=== PATIENT | female | born 1945 | race Caucasian/White ===

== ENCOUNTER → 2017-01-16 | Outpatient (CLI) | payer BC ==
[~2017-01-16] MED LIST: AMLO5TAB2 PO; ASPEC325 PO; BENZ100C84 PO; BIOF500C2 PO; CALC-51 PO; CLON0.5T3 PO; CLON1TAB3 PO; CYAN100020 PO; DEXT30TA7 PO; FLUT50SP22 NAE; FURO40TA3 PO; GABA-112 PO; LEVO50TA6 PO; LISI20TA3 PO; LOSA1TAB PO; LOSA50TA54 PO; MULT-506 PO; NAPR-1168 PO; NAPR-1169 PO; NORT10CA2 PO; OMEGCAP2 PO; OMEP40CA PO; OXYC-57 PO; QUET1TAB37 PO; RANI300T2 PO; TRAZ1TAB8 PO; Vitamin E PO
== END | disposition home or self-care (01) ==
LOC: C.LAB 13:20
PROVIDERS: ATTEND Family Medicine
DX: Z11.59 Encounter for screening for other viral diseases (principal)

== ENCOUNTER → 2017-01-26 | Outpatient (CLI) | payer BC ==
[2017-01-26 11:15] LABS: BASO % 0.2 %; BASO ABS # 0.02 K/uL (0-0.2); COMPLETE YES; EOS % 0.8 %; HEMATOCRIT 37.8 % (37-47); IG% 0.3 %; LYMPH ABS # 2.28 K/uL (1.2-3.4); MEAN CELL VOLUME 91.3 fL (80-100); MEAN CORPUSCULAR HEMOGLOBIN 30.9 pg (25-34); MEAN CORPUSCULAR HGB CONC 33.9 g/dl (32-36); MEAN PLATELET VOLUME 12.2 fL (7.4-10.4); MONO % 8.8 %; NEUT % 67.9 %; PLATELET COUNT 253 K/uL (130-400); RED BLOOD COUNT 4.14 M/uL (4.2-5.4); WHITE BLOOD COUNT 10.36 K/uL (4.8-10.8)
--- NOTE | 2017-01-26 14:36 | DIAGNOSTIC IMAGING REPORT ---
THREE-PHASE BONE SCAN OF THE KNEES CLINICAL HISTORY: Left knee pain. Evaluate for aseptic loosening. COMPARISON STUDY: Left knee radiograph January 27, 2016 and 3 phase bone scan of the knees June 27, 2013. TECHNIQUE: 26.7 mCi of technetium 99m MDP was injected IV at 10:45 AM on January 26, 2017. Immediately following injection, flow and subsequently blood pool images were obtained in the anterior projection. 3 hour delayed phase imaging was also performed. FINDINGS: There is minimal hyperemia adjacent to the left knee arthroplasty. Delayed phase images demonstrate mild to moderate uptake adjacent to left knee arthroplasty, most evident along the tibial component. Mild uptake adjacent to the right knee arthroplasty is likely within normal limits. IMPRESSION: Minimal hyperemia of the left knee with mild to moderate radiotracer uptake on the delayed phase images, greatest along the tibial component. This could be within normal limits although early loosening could appear similar. The degree of hyperemia is less than expected for an infectious process. Electronically signed by: Yang Medina M.D. 01/26/2017 2:34 PM Dictated Date/Time: 01/26/2017 2:26 PM
== END | disposition home or self-care (01) ==
LOC: C.NUCL 09:59
DX: Z47.1 Aftercare following joint replacement surgery (principal); Z96.652 Presence of left artificial knee joint; M25.562 Pain in left knee

== ENCOUNTER → 2017-02-08 | Outpatient (CLI) | payer BC ==
[~2017-02-08] MED LIST changes: -TRAZ1TAB8 PO; +TRAZ1TAB9 PO
== END | disposition home or self-care (01) ==
LOC: C.CPL 14:49
PROVIDERS: ATTEND Orthopaedic Surgery Sports Medicine
DX: T84.84XD Pain due to internal orthopedic prosthetic devices, implants and grafts, subsequent encounter (principal); Y83.1 Surgical operation with implant of artificial internal device as the cause of abnormal reaction of the patient, or of later complication, without mention of misadventure at the time of the procedure

== ENCOUNTER → 2017-02-21 | Outpatient (CLI) | payer BC ==
[~2017-02-21] MED LIST changes: +BUPIVACAINE/EPINEPHRINE 0.5% MPF 1:200,000 30 ML VIAL ONE; -CLON0.5T3 PO; +GADAVIST IV PRN; -LISI20TA3 PO; -OMEP40CA PO
--- NOTE | 2017-02-21 17:35 | DIAGNOSTIC IMAGING REPORT ---
MRI OF THE BRAIN WITHOUT AND WITH IV CONTRAST CLINICAL HISTORY: Headache; meningioma mental status change COMPARISON STUDY: 04/24/2014 TECHNIQUE: Utilizing a 1.5 Zina magnet and dedicated coil, multiplanar, multiecho imaging of the brain was performed pre and postcontrast administration. IV administration of 8.5 mL of Gadavist contrast was remarkable for an atypical delayed reaction. Patient denied dyspnea. Patient was transferred to the ER for treatment. FINDINGS: Unchanging meningioma over the left parietal convexity. Current dimensions are 11 x 8 mm. Within limitations of compared to a nonenhanced scan this is similar. No significant reactive vasogenic edema. No additional enhancing focus. Findings of generalized cerebellar as well as cerebral atrophy. Mild chronic small vessel change considered stable. Structures the sella and parasellar region are within normal limits. Internal auditory canals are symmetric. IMPRESSION: 1. Unchanging left parietal convexity meningioma. 2. Age-related atrophy and chronic small vessel change. 3. No evidence for an acute ischemic event. 4. Patient had a delayed rather atypical reaction possibly to contrast,. When stabilized, the patient was transferred to the emergency room for further follow-up evaluation Electronically signed by: Naren Zhong M.D. 02/21/2017 5:33 PM Dictated Date/Time: 02/21/2017 5:26 PM
== END | disposition home or self-care (01) ==
LOC: C.MRIBC 15:38
PROVIDERS: ATTEND Physician Assistant
DX: R51 Headache (principal); D32.0 Benign neoplasm of cerebral meninges; G31.9 Degenerative disease of nervous system, unspecified

== ENCOUNTER 2017-02-22 05:15 | Day surgery (SDC) | payer BC ==
[2017-02-13 11:30] VITALS: BMI 33.0
--- NOTE | 2017-02-14 13:08 | PAT Medication Instructions ---
Service Date Feb 14, 2017. Current Home Medication List Amlodipine Besylate (Norvasc), 5 MG PO AFTERNOON Benzonatate (Tessalon Perles), 1-2 CAP PO Q4 PRN for Cough Bioflavonoid Products (Vitamin C), 1 TAB PO QAM Calcium Carbonate-Vitamin D (Calcium), 1 TAB PO QAM Clonazepam (Klonopin), 1 MG PO BID Cyanocobalamin (Vitamin B12), 1,000 MCG PO QAM Dextromethorphan-Guaifenesin (Mucinex Dm), 1 TAB PO Q12 PRN for COUGH/CONGESTION Fluticasone Propionate (Nasal) ([facility] Fluticasone Propriona), 2 SPRAYS WILLOW AFTERNOON Furosemide (Lasix), 40 MG PO AFTERNOON Gabapentin (Neurontin), 100 MG PO TID Levothyroxine Sodium (Levothyroxine Sodium), 50 MCG PO AFTERNOON Losartan Potassium (Cozaar), 50 TAB PO QAM Multivitamin (Multivitamin), 1 TAB PO QAM Naproxen (Naprosyn), 500 MG PO BID Nortriptyline (Pamelor), 10 MG PO HS [place]-3 Fatty Acids (Fish Oil), 1 CAP PO QAM Oxycodone/Acetaminophen 5MG/325MG (Percocet 5MG/325MG), 1 TABLET PO TID PRN for Pain Quetiapine Fumarate (Seroquel), 300 MG PO HS Ranitidine (Zantac), 300 MG PO HS Trazodone Hcl (Desyrel), 100 MG PO HS [Vitamin E], 1 TAB PO QAM Medication Instructions For Your Scheduled Surgery - Hold the following medications as of 02/14/17: [Vitamin E], 1 TAB PO QAM [place]-3 Fatty Acids (Fish Oil), 1 CAP PO QAM - Hold the following medications the morning of surgery: Benzonatate (Tessalon Perles), 1-2 CAP PO Q4 PRN for Cough Bioflavonoid Products (Vitamin C), 1 TAB PO QAM Calcium Carbonate-Vitamin D (Calcium), 1 TAB PO QAM Furosemide (Lasix), 40 MG PO AFTERNOON Cyanocobalamin (Vitamin B12), 1,000 MCG PO QAM Dextromethorphan-Guaifenesin (Mucinex Dm), 1 TAB PO Q12 PRN for COUGH/CONGESTION Losartan Potassium (Cozaar), 50 TAB PO QAM Multivitamin (Multivitamin), 1 TAB PO QAM Naproxen (Naprosyn), 500 MG PO BID (otherwise okay to continue per surgeon) - Take the following medications the morning of surgery with a sip of water OTHERWISE NOTHING TO EAT OR DRINK AFTER MIDNIGHT: Amlodipine Besylate (Norvasc), 5 MG PO AFTERNOON (time permitting) Clonazepam (Klonopin), 1 MG PO BID Gabapentin (Neurontin), 100 MG PO TID Levothyroxine Sodium (Levothyroxine Sodium), 50 MCG PO AFTERNOON (time permitting) Oxycodone/Acetaminophen 5MG/325MG (Percocet 5MG/325MG), 1 TABLET PO TID PRN for Pain (may take if needed up to 4 hours prior to surgery) - Take the following medications as scheduled the night before surgery: Clonazepam (Klonopin), 1 MG PO BID Fluticasone Propionate (Nasal) ([facility] Fluticasone Propriona), 2 SPRAYS WILLOW AFTERNOON Gabapentin (Neurontin), 100 MG PO TID Dextromethorphan-Guaifenesin (Mucinex Dm), 1 TAB PO Q12 PRN for COUGH/CONGESTION Nortriptyline (Pamelor), 10 MG PO HS Quetiapine Fumarate (Seroquel), 300 MG PO HS Trazodone Hcl (Desyrel), 100 MG PO HS Ranitidine (Zantac), 300 MG PO HS Naproxen (Naprosyn), 500 MG PO BID Oxycodone/Acetaminophen 5MG/325MG (Percocet 5MG/325MG), 1 TABLET PO TID PRN for Pain If you have any questions please call us at [phone] or [phone] or [phone]
[2017-02-14 14:27] LABS: URINE APPEARANCE CLEAR (CLEAR); URINE BILIRUBIN NEG (NEG); URINE COLOR YELLOW; URINE EPITHELIAL CELL AUTO >30 /lpf (0-5); URINE NITRITE NEG (NEG); URINE PH 5.5 (4.5-7.5); URINE SPECIFIC GRAVITY 1.012 (1.000-1.030); UROBILINOGEN NEG (NEG)
[2017-02-14 14:30] LABS: MANUAL MICROSCOPIC REQUIRED? NO; REVIEW REQ? NO
[2017-02-14 15:35] LABS: BUN/CREATININE RATIO 21.6 (10-20); CALCIUM 9.3 mg/dl (8.5-10.1); CREATININE 0.93 mg/dl (0.60-1.20)
--- NOTE | 2017-02-20 11:27 | HISTORY & PHYSICAL EXAMINATION ---
DATE OF ADMISSION: 02/22/2017 CHIEF COMPLAINT: Left knee pain. HISTORY OF PRESENT ILLNESS: The patient is a 71-year-old female approximately 1 year status post left total knee arthroplasty. More recently she has been complaining of pain and disability status post a few falls. She had an infection workup which was negative. She is now scheduled for a left knee arthroscopy, debridement hypertrophic scar as indicated. PAST MEDICAL HISTORY: Hypertension, hypothyroidism, acid reflux, depression. PAST SURGICAL HISTORY: Left total knee as above, previous right total knee arthroplasty and subsequent right total knee revision arthroplasty, appendectomy, cholecystectomy, left shoulder. MEDICATIONS: Cymbalta 60 mg daily, lithium carbonate 300 mg 3 times daily, loratadine 10 mg daily, lisinopril 20 mg daily, clonazepam 1 mg 3 times daily, zolpidem 10 mg at bedtime, hydroxyzine 25 mg 4 times daily, multivitamin daily, fish oil daily, vitamin C daily, vitamin E daily, omeprazole 40 mg daily, levothyroxine 25 mcg daily, clonidine HCL 0.1 mg 2 times daily, Celebrex 200 mg twice daily, Kelford 5/325 p.r.n. pain. ALLERGIES: LYRICA WHICH CAUSES VERTIGO AND SAVELLA REACTION UNKNOWN. SOCIAL HISTORY AND REVIEW OF SYSTEMS: Noncontributory. PHYSICAL EXAMINATION: GENERAL: Well-nourished, well-developed elderly female. HEENT: Normocephalic, atraumatic, extraocular movements intact, oropharynx pink and moist. NECK: Supple without adenopathy. LUNGS: Clear to auscultation bilaterally. HEART: Regular rate and rhythm. ABDOMEN: Soft, nontender, nondistended. EXTREMITIES: The upper extremity within normal limits. The left knee demonstrates a well-healed midline incision. She describes discomfort with active flexion and extension of her knee. X-RAYS: Plain films and bone scan were reviewed. The plain films are within normal limits. The 3 phase bone scan and was minimally reactive and was read as possibly within normal limits with the possibility of early indication of loosening or septic process. She had a sed rate which was 13. She had a CRP which was less than 0.29. ASSESSMENT: Ongoing left knee pain 1 year status post total knee arthroplasty. PLAN: The above discussed with the patient. Dr. Oviedo's recommendation is proceeding with a diagnostic arthroscopy and debridement of hypertrophic scar as indicated. The patient's primary care physician is Dr. Hilton. We will proceed as indicated.
[~2017-02-22] VITALS: Ht 160 cm; Wt 86.7 kg
[~2017-02-22 05:15] MED LIST changes: -ASPEC325 PO; -BUPIVACAINE/EPINEPHRINE 0.5% MPF 1:200,000 30 ML VIAL ONE; -GADAVIST IV PRN; -LOSA50TA54 PO; -NAPR-1168 PO
[2017-02-22 05:42] VITALS: BP 187/73; PULSE 67; TEMP 36.6; O2SAT 98; Ht 160 cm; Wt 86.7 kg
[2017-02-22] MEDS ORDERED: LACTATED RINGER'S 1000ML 1,000 ML IV SCH (06:00)
[2017-02-22] MEDS ORDERED: FENTANYL CITRATE INJ 50 MCG/1 ML 2 ML VIAL ONE (06:43)
[2017-02-22] MEDS ORDERED: DEXAMETHASONE SOD INJ 4 MG/ML VIAL ONE (06:43)
[2017-02-22] MEDS ORDERED: PROPOFOL IV EMULSION 10 MG/ML 20 ML VIAL IV ONE (06:43)
[2017-02-22] MEDS ORDERED: LIDOCAINE HCL 2% 2 ML VIAL (20MG/ML) ONE (06:43)
[2017-02-22] MEDS ORDERED: ONDANSETRON INJ 2 MG/ML 2 ML VIAL ONE (06:43)
[2017-02-22] MEDS ORDERED: MIDAZOLAM HCL 1 MG/ML 2ML VIAL ONE (06:43)
[2017-02-22] MEDS ORDERED: BUPIVACAINE 0.5 % 5 MG/1 ML MPF 30ML VIAL ONE (06:47)
--- NOTE | 2017-02-22 06:54 | History & Physical Bridge Note ---
H&P Re-Evaluation Bridge Note: I have examined the patient, reviewed the History & Physical and in the interval since the performance of the History & Physical I have noted the following changes of clinical significance: No changes noted
[2017-02-22] MEDS ORDERED: CEFAZOLIN SOD 1 GM VIAL ONE (07:24)
[2017-02-22] MEDS ORDERED: ONDANSETRON INJ 2 MG/ML 2 ML VIAL IV PRN ×2 (07:30→08:00)
[2017-02-22] MEDS ORDERED: FENTANYL CITRATE INJ 50 MCG/1 ML 2 ML VIAL IV PRN (07:30)
[2017-02-22] MEDS ORDERED: ATROPINE SULFATE 0.1 MG/ML 5ML SYR IV PRN (07:30)
[2017-02-22] MEDS ORDERED: LABETALOL HCL IV 5 MG/ML 20ML IV PRN (07:30)
[2017-02-22] MEDS ORDERED: KETOROLAC TROMETHAMINE 30 MG/ML VIAL IV. PRN (07:30)
--- NOTE | 2017-02-22 07:52 | [facility] Post Operative Brief Note ---
Immediate Operative Summary Operative Date Feb 22, 2017. Pre-Operative Diagnosis Ongoing left knee pain 1 year status post total knee arthroplasty. Post-Operative Diagnosis Ongoing left knee pain 1 year status post total knee arthroplasty. Procedure(s) Performed Left Knee Arthroscopic Excision of the Hypotrophic Scar Surgeon Dr. Oveido Station Mechanic Helper Surgeon(s) None per surgeon Estimated Blood Loss 10ml Findings Much hypertertophic scar left total knee Specimens None per surgeon
[2017-02-22] MEDS ORDERED: BUPIVACAINE 0.5% W/EPI 1:200,000 INJ ONE (07:55)
[2017-02-22] MEDS ORDERED: OXYCODONE HCL IR 5 MG TAB (IMMEDIATE RELEASE) PO PRN (08:00)
[2017-02-22] MEDS ORDERED: MoRPHine SULFATE 2 MG/ML CARP IV PRN (08:00)
[2017-02-22] MEDS ORDERED: OXYCODONE/ACETAMINOPHEN 5-325 TAB PO PRN (08:00)
--- NOTE | 2017-02-22 08:02 | Discharge Instructions ---
Discharge Instructions Date of Service Feb 22, 2017. Admission Reason for Admission: Left Knee Arthrofibrosis Discharge Discharge Diagnosis / Problem: Left Knee Arthrofibrosis Discharge Goals Goal(s): Decrease discomfort, Improve function Activity Recommendations Activity Limitations: per Instructions/Follow-up section . Instructions / Follow-Up Instructions / Follow-Up ACTIVITY RECOMMENDATIONS: * You may walk on the leg with or without crutches as comfort permits. * Bending of the knee should start at once. * Do not shower for 48 hours following surgery. SPECIAL CARE INSTRUCTIONS: * You may cleanse the skin adjacent to the small wounds with soap and water at the time of the first dressing change. * The application of an ice bag to the front and sides of the knee will decrease swelling and discomfort for the first 48 hours. * The small incisions may be sore and develop bruising. This bruising does not require any special care. SPECIAL PRECAUTIONS: * If you experience unusual pain unrelieved by prescriptions, temperature elevation (100 degrees F. or above) or progressive swelling or bleeding, you should contact our office at for further evaluation. * You may have been prescribed pain medication. If you experience nausea and/or fine skin rash, discontinue this medication and contact our office at for an alternate medication. DRESSING: * Dressing should be comfortable and absorb any leakage of fluid and/or blood. * The dressing may become moist or bloodstained. * Dressing may be removed 2 days after surgery and bandaids placed over the small surgical incisions. If can be removed sooner if it becomes very soiled or loose. * Bandaids may be used over next several days as needed and can be discontinued when there is not further drainage from the wounds. FOLLOW UP VISIT: If appointment is not already scheduled: Please call [facility] to make a follow-up appointment in 10- 14 days from the day of your surgery at . Current Hospital Diet Patient's current hospital diet: Discharge Diet Recommended Diet: N/A (Resume your previous diet at home.) Procedures Procedures Performed: Left Knee Arthroscopic Excision of the Hypotrophic Scar Pending Studies Studies pending at discharge: no Medical Emergencies . Who to Call and When: Medical Emergencies: If at any time you feel your situation is an emergency, please call 351 immediately. . Non-Emergent Contact Non-Emergency issues call your: Surgeon Call Non-Emergent contact if: temperature is above 101.5, your pain is not controlled, your pain is worsening, wound has increased drainage, wound has increased redness . "Provider Documentation" section prepared by Dontae Lopez. VTE Core Measure Inpt VTE Proph given/why not?: [facility] [place] Drug Monitoring Program Search Results: patient reviewed within database, see additional documentation Drug Monitoring Findings: Patient receiving pain meds through [facility]. No prescriptions written for patient.
[2017-02-22] MEDS ORDERED: ASPEC325 PO (08:03)
--- NOTE | 2017-02-22 08:21 | Anesthesiology Progress Note ---
Anesthesia Post Op Note Date & Time Feb 22, 2017 at 08:21 Vital Signs Pain Intensity: 0 Vital Signs Past 12 Hours Date Time Temp Pulse Resp B/P Pulse Ox O2 Delivery O2 Flow Rate FiO2 02/22/17 08:10 74 16 154/81 100 Mask 5 02/22/17 08:00 82 16 160/77 100 Mask 10 02/22/17 07:50 84 16 144/71 100 Mask 10 02/22/17 07:45 36.4 82 14 139/69 98 Mask 10 02/22/17 05:42 36.6 67 20 187/73 98 Room Air Notes Mental Status: alert / awake / arousable, participated in evaluation Pt Amnestic to Procedure: Yes Nausea / Vomiting: adequately controlled Pain: adequately controlled Airway Patency, RR, SpO2: stable & adequate BP & HR: stable & adequate Hydration State: stable & adequate Anesthetic Complications: no major complications apparent
--- NOTE | 2017-02-22 08:29 | OPERATIVE REPORT ---
DATE OF OPERATION: 02/22/2017 PREOPERATIVE DIAGNOSIS: Hypertrophic scar, left total knee. POSTOPERATIVE DIAGNOSIS: Hypertrophic scar, left total knee. PROCEDURE: Excision of hypertrophic scar, left total knee. SURGEON: Dr. Oviedo. ANESTHESIA: General. COMPLICATIONS: None. DESCRIPTION OF PROCEDURE: Following induction of adequate general anesthesia, the patient's left leg was prepped and draped in usual sterile manner. Limb was exsanguinated with elevation and tourniquet was inflated to 350 mmHg. Prior to inflation of the tourniquet 2 grams of IV Ancef was injected. An anterolateral portal was used for insertion of the arthroscope. Tremendous amounts of hypertrophic scar were identified both in the medial and lateral compartments of the knee joint. Much of this scar could easily be seen to be impinging between the femoral and tibial components. Using a 5-5 incisor blade all offending scar was removed. Tibial components and femoral components were intact. The patella looked within normal limits and tracked normally. There was not any significant scarring in the area of the suprapatellar pouch. The arthroscope was withdrawn. Wounds were closed using 4-0 nylon simple sutures. Sterile dressing of 4 x 4s, sterile Webril and double length Berto was applied. The patient tolerated the procedure well. Prior to dressing 10 mL of 1.5% Marcaine with epinephrine were injected into each arthroscopic portal. I attest to the content of the Intraoperative Record and any orders documented therein. Any exceptio ns are noted below.
[2017-02-22 08:30] VITALS: BP 162/75; PULSE 65; TEMP 36.3; O2SAT 97
[2017-02-22 09:00] VITALS: BP 174/72; PULSE 58; TEMP 36.4; O2SAT 100
[2017-02-22 09:30] VITALS: BP 167/77; PULSE 61; TEMP 36.5; O2SAT 98
--- NOTE | 2017-02-28 12:59 | CODING QUERY MEDICAL NECESSITY ---
CQSUPPORTING DIAGNOSIS NEEDED A supporting diagnosis is required for the test/procedure performed on this patient in order for us to be reimbursed by the patient's insurance. Please provide a supporting diagnosis for the following test/procedure listed below next to the test name along with your signature. *If there is no additional diagnosis for this patient that would support the following test/procedure please document that below next to the test/procedure. Test(s)/Procedure(s) that require a supporting diagnosis: DOS 02/22/17 BLOOD GLUCOSE TESTING Provider Signature: Date: Thank you Sharlene Chen Health Information Management Once completed, please kindly fax back to [phone] For questions please call [phone]
[2017-03-15] MEDS ORDERED: LOSA50TA54 PO (14:40)
[2017-03-15] MEDS ORDERED: NAPR-1168 PO (14:40)
== END 2017-02-22 09:40 | disposition home or self-care (01) ==
LOC: C.ACU 05:15
DX: L91.0 Hypertrophic scar (principal); I10 Essential (primary) hypertension; E03.9 Hypothyroidism, unspecified; K21.9 Gastro-esophageal reflux disease without esophagitis; F32.9 Major depressive disorder, single episode, unspecified; E11.9 Type 2 diabetes mellitus without complications

== ENCOUNTER → 2017-03-21 | Day surgery (SDC) | payer BC ==
[2017-03-15 14:40] VITALS: BMI 33.0
[~2017-03-21] VITALS: Ht 160 cm; Wt 85.9 kg
[~2017-03-21] MED LIST changes: -BIOF500C2 PO; +LIDOCAINE HCL 2% 2 ML VIAL (20MG/ML) ONE; -LOSA1TAB PO; +LOSA50TA54 PO; +NAPR-1168 PO; -NAPR-1169 PO; -NORT10CA2 PO; +ONDANSETRON INJ 2 MG/ML 2 ML VIAL IV PRN; +PROPOFOL IV EMULSION 10 MG/ML 20 ML VIAL IV ONE
[2017-03-21 09:20] VITALS: Ht 160 cm; Wt 85.9 kg
--- NOTE | 2017-03-21 09:35 | Endo History and Physical ---
History & Physical Date of Service: March 21, 2017. Chief Complaint: Screening for colon cancer Referring Physician: Dr Carballo History of Present Illness Patient referred for CRC screening, no symptoms, no family history. Past Medical History Arthritis, Fractures, Anxiety, Reflux, Syncopal Episodes, Hypertension, Thyroid Disease, Depression Past Surgical History Hx Cardiac Surgery: No Hx Internal Defibrillator: No Hx Pacemaker: No Hx Abdominal Surgery: Yes (APPY, COCO) Hx Post-Op Nausea and Vomiting: No Hx Cancer Surgery: No Hx Thoracic Surgery: No Hx Orthopedic: Yes (B/L TKA, LEFT SHOULDER/HUMEROUS ORIF WITH HARDWARE/REMOVAL , LEFT KNEE ARTHR) Hx Urinary Tract Surgery: No Family History IBD Social History Smoking Status: Never Smoker Hx Substance Use: Yes (SEE MED REC) Hx Alcohol Use: Yes (OCCASIONALLY) Allergies Coded Allergies: Dust (Verified Allergy, Unknown, STUFFY NOSE, 03/15/17) [place] (Verified Allergy, Unknown, syncope, 03/15/17) Cheese (Verified Adverse Reaction, Unknown, CONSTIPATION, 03/15/17) NUTS (Verified Adverse Reaction, Unknown, CONSTIPATION, 03/15/17) Current Medications Reported Home Medications Medications Dose Route/Sig Max Daily Dose Days Date Category Dose Instructions Naprosyn Ds (Naproxen) 550 Mg Tab 550 Mg PO BID 03/15/17 Reported Cozaar (Losartan Potassium) 50 Mg Tab 50 Mg PO QAM 03/15/17 Reported Mucinex Dm (Dextromethorphan-Guaifenesin) 1 Tab Tab 1 Tab PO Q12 PRN 14 02/13/17 Reported Neurontin (Gabapentin) 100 Mg Cap 100 Mg PO TID 02/13/17 Reported Seroquel (Quetiapine Fumarate) 300 Mg Tab 300 Mg PO HS 02/13/17 Reported Tessalon Perles (Benzonatate) 100 Mg Cap 1-2 Cap PO Q4 PRN 5 02/13/17 Reported [facility] Fluticasone Propriona (Fluticasone Propionate (Nasal)) 50 Mcg/Act Spr 2 Sprays WILLOW AFTERNOON 10/24/16 Reported Percocet 5MG/325MG (Oxycodone/Acetaminophen) Tab 1 Tablet PO TID PRN 10/24/16 Reported PAIN Zantac (Ranitidine HCl) 300 Mg Tab 300 Mg PO HS 12/30/15 Reported Lasix (Furosemide) 40 Mg Tab 40 Mg PO AFTERNOON 12/30/15 Reported Vitamin B12 (Cyanocobalamin) 1,000 Mcg Tab 1,000 Mcg PO QAM 07/28/15 Reported Multivitamin (Multivitamins) Tab 1 Tab PO QAM 07/28/15 Reported [Vitamin E] 1 Tab PO QAM 04/24/14 Reported Calcium (Calcium Carbonate-Vitamin D) 1 Tab Tab 1 Tab PO QAM 04/24/14 Reported Desyrel (Trazodone Hcl) 100 Mg Tab 100 Mg PO HS 04/24/14 Reported Levothyroxine Sodium 50 Mcg Tab 50 Mcg PO AFTERNOON 04/24/14 Reported Norvasc (Amlodipine Besylate) 5 Mg Tab 5 Mg PO AFTERNOON 04/24/14 Reported Fish Oil ([place]-3 Fatty Acids) 1 Cap Cap 1 Cap PO QAM 07/17/13 Reported Klonopin (Clonazepam) 1 Mg Tab 1 Mg PO BID 01/24/13 Reported Vital Signs Weight (Kilograms): 85.91 Height (Feet): 5 Height (Inches): 3 Physical Exam General Appearance: no apparent distress Respiratory/Chest: Auscultation: breath sounds normal Cardiovascular: Heart Auscultation: RRR Abdomen: Inspection & Palpation: soft Assessment and Plan Patient for CRC screening today, risks discussed to include bleeding, infection , perforation, pain and missed polyps.
[2017-03-21 09:44] VITALS: TEMP 36.4
--- NOTE | 2017-03-21 10:31 | Discharge Instructions ---
Endoscopy Patient Instructions Date / Procedure(s) Performed March 21, 2017. Colonoscopy Allergy Information Coded Allergies: Dust (Verified Allergy, Unknown, STUFFY NOSE, 03/21/17) [place] (Verified Allergy, Unknown, syncope, 03/21/17) Cheese (Verified Adverse Reaction, Unknown, CONSTIPATION, 03/21/17) NUTS (Verified Adverse Reaction, Unknown, CONSTIPATION, 03/21/17) Discharge Date / Findings March 21, 2017. Diverticulosis Hemorrhoids Medication Instructions Restart Stopped Medication(s): Reported Home Medications Medications Dose Route/Sig Max Daily Dose Days Date Category Dose Instructions Naprosyn Ds (Naproxen) 550 Mg Tab 550 Mg PO BID 03/15/17 Reported Cozaar (Losartan Potassium) 50 Mg Tab 50 Mg PO QAM 03/15/17 Reported Mucinex Dm (Dextromethorphan-Guaifenesin) 1 Tab Tab 1 Tab PO Q12 PRN 14 02/13/17 Reported Neurontin (Gabapentin) 100 Mg Cap 100 Mg PO TID 02/13/17 Reported Seroquel (Quetiapine Fumarate) 300 Mg Tab 300 Mg PO HS 02/13/17 Reported Tessalon Perles (Benzonatate) 100 Mg Cap 1-2 Cap PO Q4 PRN 5 02/13/17 Reported [facility] Fluticasone Propriona (Fluticasone Propionate (Nasal)) 50 Mcg/Act Spr 2 Sprays WILLOW AFTERNOON 10/24/16 Reported Percocet 5MG/325MG (Oxycodone/Acetaminophen) Tab 1 Tablet PO TID PRN 10/24/16 Reported PAIN Zantac (Ranitidine HCl) 300 Mg Tab 300 Mg PO HS 12/30/15 Reported Lasix (Furosemide) 40 Mg Tab 40 Mg PO AFTERNOON 12/30/15 Reported Vitamin B12 (Cyanocobalamin) 1,000 Mcg Tab 1,000 Mcg PO QAM 07/28/15 Reported Multivitamin (Multivitamins) Tab 1 Tab PO QAM 07/28/15 Reported [Vitamin E] 1 Tab PO QAM 04/24/14 Reported Calcium (Calcium Carbonate-Vitamin D) 1 Tab Tab 1 Tab PO QAM 04/24/14 Reported Desyrel (Trazodone Hcl) 100 Mg Tab 100 Mg PO HS 04/24/14 Reported Levothyroxine Sodium 50 Mcg Tab 50 Mcg PO AFTERNOON 04/24/14 Reported Norvasc (Amlodipine Besylate) 5 Mg Tab 5 Mg PO AFTERNOON 04/24/14 Reported Fish Oil ([place]-3 Fatty Acids) 1 Cap Cap 1 Cap PO QAM 07/17/13 Reported Klonopin (Clonazepam) 1 Mg Tab 1 Mg PO BID 01/24/13 Reported Provider Instructions Activity Restrictions - No exercising or heavy lifting for 24 hours. - Do not drink alcohol the day of the procedure. - Do not drive a car or operate machinery until the day after the procedure. - Do not make any important decisions or sign important papers in 24 hours after the procedure. Following Day: - Return to full activity which may include returning to work/school. Diet Start your diet with liquids and light foods (jello, soup, juice, toast). Then eat your usual diet if not nauseated. Treatment For Common After Affects For mild abdominal pain, bloating, or excessive gas: - Rest - Eat lightly - Lie on right side Follow-Up Information Follow-up with Dr Carballo as scheduled Repeat colonoscopy in 5 years (small polyps could have been missed. Anesthesia Information What You Should Know You have had a procedure that required some medicine to reduce anxiety and discomfort. This treatment is called moderate sedation. After receiving the treatment, you may be sleepy, but you will be able to breathe on your own. The effects of the treatment may last for several hours. Follow these instructions along with Activity/Diet recommendations noted above: * Do NOT do anything where dizziness or clumsiness would be dangerous. * Rest quietly at home today, then you can be up and about tomorrow. * Have a responsible person stay with you the rest of today. * You may have had an I.V. today. If so, you may take the dressing off later today. Recommendations Call your doctor if: * Trouble breathing * Continuous vomiting for more than 24 hours * Temperature above 101 degrees * Severe abdominal pain or bloating * Pain not relieved by pain medicine ordered * There is increased drainage or redness from any incision * A large amount of rectal bleeding greater than 2-3 tablespoons. (If you had a polyp/s removed or have hemorrhoids, a small amount of blood - from the rectum is to be expected.) * You have any unanswered questions or concerns. IN THE EVENT OF A SERIOUS EMERGENCY, GO TO THE NEAREST EMERGENCY ROOM Your discharge instructions were prepared by provider Micki Brian. Patient Instructions Signature Page Katherine Ruelas Patient (or Guardian) Signature/Date: I have read and understand the instructions given to me by my caregivers. Caregiver/RN/Doctor Signature/Date: The above-named patient and/or guardian has received patient instructions on this date. + Original Patient Signature Page (only) stays with chart. Please make copy for patient.
--- NOTE | 2017-03-21 10:34 | GI REPORT ---
Procedure Date: 03/21/2017 9:42 AM Procedure: Colonoscopy Indications: Screening for colorectal malignant neoplasm Medicines: Monitored Anesthesia Care Complications: No immediate complications. Estimated blood loss: Minimal. Estimated Blood Loss: Estimated blood loss: none. Procedure: Pre-Anesthesia Assessment: - Prior to the procedure, a History and Physical was performed, and patient medications, allergies and sensitivities were reviewed. The patient's tolerance of previous anesthesia was reviewed. - The risks and benefits of the procedure and the sedation options and risks were discussed with the patient. All questions were answered and informed consent was obtained. - Patient identification and proposed procedure were verified prior to the procedure by the physician, the nurse and the wrapper layer. The procedure was verified in the procedure room. - Pre-procedure physical examination revealed no contraindications to sedation. - ASA Grade Assessment: III - A patient with severe systemic disease. - After reviewing the risks and benefits, the patient was deemed in satisfactory condition to undergo the procedure. - The anesthesia plan was to use monitored anesthesia care (MAC). - Immediately prior to administration of medications, the patient was re-assessed for adequacy to receive sedatives. - The heart rate, respiratory rate, oxygen saturations, blood pressure, adequacy of pulmonary ventilation, and response to care were monitored throughout the procedure. - The physical status of the patient was re-assessed after the procedure. After I obtained informed consent, the scope was passed under direct vision. Throughout the procedure, the patient's blood pressure, pulse, and oxygen saturations were monitored continuously. The scope was introduced through the anus and advanced to the terminal ileum. The colonoscopy was somewhat difficult due to unsatisfactory bowel prep. Successful completion of the procedure was aided by applying abdominal pressure. The patient tolerated the procedure well. The quality of the bowel preparation was fair. Findings: The perianal and digital rectal examinations were normal. Pertinent negatives include normal sphincter tone. The terminal ileum appeared normal. Multiple small-mouthed diverticula were found in the sigmoid colon and in the descending colon. Internal hemorrhoids were found during retroflexion. The hemorrhoids were mild. The exam was otherwise without abnormality. Impression: - The examined portion of the ileum was normal. - Mild diverticulosis in the sigmoid colon and in the descending colon. - Internal hemorrhoids. - The examination was otherwise normal. Recommendation: - Discharge patient to home (ambulatory). - Advance diet as tolerated today. - Repeat colonoscopy in 5 years for screening purposes. - Return to GI office PRN. Marten Brian, D.O. Marten B. Brian, DO 03/21/2017 10:33:48 AM This report has been signed electronically. Note Initiated On: 03/21/2017 9:42 AM I attest to the content of the Intraoperative Record and orders documented therein, exceptions below
[2017-03-21 11:00] VITALS: BP 146/67; PULSE 72; O2SAT 99
--- NOTE | 2017-03-21 11:35 | Anesthesiology Progress Note ---
Anesthesia Post Op Note Date & Time March 21, 2017 at 11:34 Vital Signs Pain Intensity: 0 Vital Signs Past 12 Hours Date Time Temp Pulse Resp B/P Pulse Ox O2 Delivery O2 Flow Rate FiO2 03/21/17 11:00 72 18 146/67 99 Room Air 03/21/17 10:45 70 18 169/78 99 Room Air 03/21/17 10:30 74 16 123/69 99 Room Air 03/21/17 09:44 36.4 77 18 123/69 98 Room Air Notes Mental Status: alert / awake / arousable, participated in evaluation Pt Amnestic to Procedure: Yes Nausea / Vomiting: adequately controlled Pain: adequately controlled Airway Patency, RR, SpO2: stable & adequate BP & HR: stable & adequate Hydration State: stable & adequate Anesthetic Complications: no major complications apparent
== END | disposition home or self-care (01) ==
LOC: C.GI 08:55
PROVIDERS: ATTEND Internal Medicine Gastroenterology
DX: Z12.11 Encounter for screening for malignant neoplasm of colon (principal); K57.30 Diverticulosis of large intestine without perforation or abscess without bleeding; K64.8 Other hemorrhoids; F41.9 Anxiety disorder, unspecified; I10 Essential (primary) hypertension; F32.9 Major depressive disorder, single episode, unspecified; K21.9 Gastro-esophageal reflux disease without esophagitis; M19.90 Unspecified osteoarthritis, unspecified site; Z90.89 Acquired absence of other organs; Z90.49 Acquired absence of other specified parts of digestive tract; Z86.718 Personal history of other venous thrombosis and embolism; Z96.653 Presence of artificial knee joint, bilateral; Z98.890 Other specified postprocedural states; Z79.899 Other long term (current) drug therapy; Z68.33 Body mass index [BMI] 33.0-33.9, adult

== ENCOUNTER → 2017-04-06 | Outpatient (CLI) | payer BC ==
[~2017-04-06] MED LIST changes: -LIDOCAINE HCL 2% 2 ML VIAL (20MG/ML) ONE; -ONDANSETRON INJ 2 MG/ML 2 ML VIAL IV PRN; -PROPOFOL IV EMULSION 10 MG/ML 20 ML VIAL IV ONE
--- NOTE | 2017-04-06 09:18 | DIAGNOSTIC IMAGING REPORT ---
(BARIUM SWALLOW) ESOPHAGUS CLINICAL HISTORY: R13.10 Dysphagia, unspecified typePt with dysphagia. Heartburn. Weight gain. COMPARISON STUDY: None. FLUOROSCOPY TIME: 2.4 minutes. 24 images submitted. FINDINGS: The patient swallowed barium without difficulty. The esophagus is normal in course and caliber. The contours of the hypopharynx are within normal limits. Mild esophageal dysmotility. No hiatus hernia. No gastroesophageal reflux. The barium tablet passed without difficulty. IMPRESSION: Mild esophageal dysmotility. Otherwise, normal barium swallow. Electronically signed by: Dom Davis M.D. 04/06/2017 9:17 AM Dictated Date/Time: 04/06/2017 9:16 AM
== END | disposition home or self-care (01) ==
LOC: C.RAD 08:34
PROVIDERS: ATTEND Family Medicine
DX: R13.10 Dysphagia, unspecified (principal)

== ENCOUNTER 2022-12-04 13:47 | Observation (INO) ==
[2022-12-04] MEDS ORDERED: oxyCODONE HCL IR 5 MG TAB (IMMEDIATE RELEASE) PO STA (14:20)
--- NOTE | 2022-12-04 14:20 | Emergency Department Note ---
History of Present Illness General Chief complaint: Fall Time Seen by Provider: 12/04/22 14:02 History of Present Illness Maximum Pain Intensity: 10 This is a 77-year-old female that presents to the emergency department via EMS with complaints of "fall". The patient notes that earlier today she was ambulating and tripped/fell landing on her left shoulder. She notes left shoulder pain since the fall. She does not believe the fall was secondary to snow/ice, rather believes she tripped on the concrete sidewalk. Patient denies striking head or loss of consciousness. Patient notes discomfort to the left shoulder that radiates to her elbow. She also notes some mild numbness/tingling in her fingers of the left hand. No anticoagulant use. Current discomfort 08/21. Home Medications Medication Instructions Recorded Confirmed Type amlodipine 5 mg tablet (Norvasc) 5 mg PO DAILY 06/04/19 04/14/22 History calcium carbonate 500 mg calcium 500 mg PO DAILY 06/04/19 04/14/22 History (1,250 mg) tablet (Calcium 500) cyanocobalamin (vitamin B-12) 1,000 mcg PO DAILY 06/04/19 04/14/22 History 1,000 mcg tablet (Vitamin B-12) esomeprazole magnesium 40 mg 40 mg PO DAILY 06/04/19 04/14/22 History capsule,delayed release (Nexium) furosemide 40 mg tablet (Lasix) 40 mg PO DAILY 06/04/19 04/14/22 History levothyroxine 50 mcg tablet 50 mcg PO DAILY 06/04/19 04/14/22 History montelukast 10 mg tablet 10 mg PO DAILY 06/04/19 04/14/22 History (Singulair) multivitamin 1 tab PO DAILY 06/04/19 04/14/22 History nortriptyline 10 mg capsule 10 mg PO TID 06/04/19 04/14/22 History (Pamelor) losartan 100 mg tablet 100 mg PO DAILY #90 tabs 06/09/19 04/14/22 Rx alendronate 70 mg tablet (Fosamax) 70 mg PO WK 3 months #12 tabs 02/20/20 04/14/22 Rx atorvastatin 20 mg tablet (Lipitor) 20 mg PO QPM #90 tabs 02/20/20 04/14/22 Rx quetiapine 300 mg tablet (Seroquel) 300 mg PO HS #90 tabs 11/24/21 04/14/22 Rx duloxetine 30 mg capsule,delayed 30 mg PO BID #180 caps 02/16/22 04/14/22 Rx release hydrochlorothiazide 12.5 mg tablet 12.5 mg PO DAILY 04/14/22 04/14/22 History potassium chloride 20 mEq 40 meq PO DAILY 04/14/22 04/14/22 History tablet,extended release Allergies Allergy/AdvReac Type Severity Reaction Status Date / Time lithium Allergy Unknown syncope Verified 04/14/22 10:51 cheese AdvReac Unknown CONSTIPATIO Verified 04/14/22 10:51 N nut - unspecified AdvReac Unknown CONSTIPATIO Verified 04/14/22 10:51 N milnacipran [From Savella] AdvReac Verified 04/14/22 10:51 Dust Allergy Unknown STUFFY NOSE Uncoded 04/14/22 10:51 Past Med/Surg History Medical History Anxiety Bipolar 1 disorder DVT (deep venous thrombosis) Fibromyalgia GERD without esophagitis Hyperglycemia Hyperlipidemia Hypertension Hypothyroidism (acquired) Insomnia Left knee DJD Osteoarthritis Surgical History S/P wisdom tooth extraction Status post right partial knee replacement Family History Grandmother Breast cancer Mother Myocardial infarction Denies family history of Ovarian cancer Prostate cancer Colorectal cancer Social History Smoking Status: Never smoker Second Hand Exposure: Yes; Hx Alcohol Use: Yes Alcohol type: wine Alcohol Intake Frequency Comment: occasionally Hx Substance Use: No Preferred Language: Italian Communication Ability: Effective Visual Impairment: No Limitations Hearing Ability: Normal Leather Production Worker Required: No marital status: / Current Living Situation: Alone 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 Feels Safe at Home: Yes Childhood Exposure to Second-Hand Smoke: No caffeine: Yes (coffee) Dental Care, Regularly: No Physical Activity Frequency: Daily Physical Activity Frequency Comment: walking approx 15-20min a day Seatbelt Use: always Sunscreen Use: No (states she is not out in the sun much ) Review of Systems A total of 10 systems reviewed and were otherwise negative Physical Exam Vital Signs Vital Signs - 24 hr 12/04/22 13:58 Temperature 36.5 C Temperature Source Temporal Artery Scan Pulse Rate 87 Respiratory Rate 20 Respiratory Effort / Characteristics Non-Labored Respiratory Depth Normal Blood Pressure 104/64 Blood Pressure Mean 77 Pulse Oximetry 93 Oxygen Delivery Method Room Air Sepsis Recent Fever Within 48 Hours No Sepsis New/Unexplained Change in Mental Status No Sepsis Action Taken by Nursing No Action Required VITAL SIGNS - Vital signs and nursing notes were reviewed. Stable and afebrile. GENERAL -77-year-old female appearing her stated age. Communicates well with provider and answers questions appropriately. SKIN - Gross examination of the entire body surface demonstrates no lacerations to the body surface. HEAD - Normocephalic, Atraumatic. No Lynn's Sign or Raccoon's Eyes. No depressed skull fractures palpable. EYES - PERRL with EOMI bilaterally. Without subconjunctival hemorrhage. Palpebral conjunctiva pink and moist with no injection. EARS - No deformities of external structures noted on gross examination bilaterally. No hemotympanum present. No tympanic perforation noted. Handle of malleus, umbo, cone of light, pars tensa/flaccid all easily visualized. NOSE - Midline and without cyanosis. No epistaxis or clear watery discharge noted. Septum midline without deviation. No septal hematoma noted. No overlying ecchymosis noted. MOUTH/OROPHARYNX - Without perioral cyanosis. Tongue midline with equal elevation of palate bilaterally. No blood noted in the oropharynx. No tonsillar hypertrophy, erythema, or exudates noted. No dental fractures noted. NECK -no tenderness to palpation over the cervical spinous processes. No cervical paraspinal muscle tenderness noted. LUNGS - Chest wall symmetric without accessory muscle use, intercostals retractions, or central cyanosis. No flail chest or depressed fractures noted. Normal vesicular breath sounds CTA B/L. No wheezes, rales, or rhonchi appreciated. CARDIAC - RRR with S1/S2. No murmur, rubs, or gallops appreciated. EXTREMITIES - No gross deformities noted of the extremities. There is left shoulder tenderness to palpation. Passive range of motion was not performed of the left shoulder noting pain. +5/5 strength noted in UE/LE bilaterally. Left radial pulse within normal limits. [employer]oured [employer] Officer strength of left hand within normal limits. She is sensory intact throughout the left upper extremity. NEUROLOGIC - Cranial nerves II through XII grossly intact. PSYCH - A&O, and cooperates fully with examiner. Pt is very pleasant and interacts well with examiner. Course Administered Medications Discontinued Medications Oxycodone HCl (Oxycodone Hcl Ir 5 Mg Tab (Immediate Release)) 2.5 mg PO NOW STA Stop: 12/04/22 14:21 Last Admin: 12/04/22 14:29 Dose: 2.5 mg Documented By: EDUARDO Medical Decision Making Laboratory Data Lab Results 12/04/22 Range/Units 16:30 SARS-CoV-2, RNA, NAAT NEGATIVE (NEGATIVE) Imaging Data Radiologist's Impression: Cervical Spine CT 12/04/22 14:[address] DOSE: HISTORY: fall TECHNIQUE: Multiaxial CT images of the cervical spine were performed and reformatted in the sagittal and coronal plane without the use of contrast. A dose lowering technique was utilized adhering to the principles of ALARA. COMPARISON: Thyroid ultrasound 04/21/2015. FINDINGS: No fractures. No subluxation. Prevertebral soft tissues and the C1-C2 interval are intact. No pneumothorax. There is again noted a 3 cm right thyroid nodule. This was previously biopsied. Moderate to severe degenerative disc disease from C3 through C6 with slight reversal of the normal lordotic curvature. IMPRESSION: No fractures within the cervical spine. ACT 112: Negative or not required by law. Electronically signed by: Dom Davis M.D. 12/04/2022 3:[address] 12/04/22 14:20 CT head/brain wo con CLINICAL HISTORY: 77 years-old Female with fall. Acute head injury status post fall TECHNIQUE: Multiple axial CT images of the head were obtained without contrast. A dose lowering technique was utilized adhering to the principles of ALARA. CT DOSE: 1117.85 mGy.cm COMPARISON: CT cervical spine of same day, head CT 04/24/2014. FINDINGS: No acute intracranial hemorrhage, midline shift, intra-axial mass, hydrocephalu s, territorial ischemia or abnormal extra-axial collection. Involutional changes with chronic microvascular ischemic disease. 1.2 cm calcified meningioma adjacent to the left frontoparietal junction, image 25 series 2. This lesion previously measured 1.1 cm. No significant mass effect. The calvarium is intact. Prior bilateral lens repair. The paranasal sinuses, mastoid air cells, and middle ear cavities are clear. IMPRESSION: No acute intracranial abnormality or calvarial fracture. ACT 112: Negative or not required by law. The above report was generated using voice recognition software. It may contain grammatical, syntax or spelling errors. Electronically signed by: Tavo Dockery M.D. 12/04/2022 3:43 PM Humerus X-Ray 12/04/22 14:20 XR humerus LT 2V HISTORY: 77 years-old Female Fall, L arm pain acute left upper extremity pain status post fall COMPARISON: None TECHNIQUE: 2 views of the left humerus FINDINGS: There is an acute comminuted proximal humeral fracture with fracture lines involving tuberosity and surgical neck. No significant displacement or dislocation. Moderate glenohumeral and AC joint osteoarthritis. Unremarkable soft tissues. Distal humerus appears intact. IMPRESSION: 1. Acute comminuted proximal humeral fracture without significant displacement. 2. No dislocation. ACT 112: Negative or not required by law. The above report was generated using voice recognition software. It may contain grammatical, syntax or spelling errors. Electronically signed by: Tavo Dockery M.D. 12/04/2022 3:12 PM [facility] Narrative Patient was seen and evaluated as above in room D03. Review was performed of nursing notes and vital signs. After obtaining a thorough history and physical examination the above work up was performed. Patient presents to us today for evaluation of discomfort to the left shoulder status post fall. She appears to be in pain in the left shoulder. Options of care were discussed with the patient. X-ray of the left shoulder left humerus was obtained. Results as above. Acute comminuted proximal humeral fracture without significant displacement. CT scan was also obtained of the head and C-spine noting mechanism of injury. This was negative for acute traumatic process. She was informed upon the incidental meningioma. Initially I discussed potentially going home to have outpatient follow-up however the pat thong does note she lives alone. She questioned if perhaps her daughter could come help her for short period of time. I did attempt to contact her daughter via phone number listed in the EMR and the phone number did not dial. I then had our compressor operator adjuster here attempted to this and it was unsuccessful. The phone number for her son is not listed. She does not have a cell phone or any way to check phone numbers. She only has a phone that is in her home. At this time with the patient living alone in the setting of now using a left arm sling secondary to left humerus fracture and also her discomfort I do believe that further evaluation and management inpatient setting is warranted. I am concerned that she presents an increased fall risk returning home this evening by herself. I discussed these options with the patient and she was in agreement with staying in the hospital. I believe this is reasonable. Case then discussed with the hospitalist. Please refer to further documentation regarding her stay. Arm sling applied during her time here in the ED. GCS: 15 In the evaluation and treatment of this patient the following differential diagnoses were entertained: Fracture, dislocation, subluxation, contusion, sprain, strain, among others Impression & Plan Fall, Closed left humeral fracture Discharge Plan Visit Data Chief Complaint: Fall ED Provider: Dwayne Sanchez ED Midlevel Provider: Rolo Hu Discharge Problem: Fall, Closed left humeral fracture Patient Disposition: Admitted As Inpatient Condition: Good Forms Stand Alone Forms: [facility], Virtual Emergency Department, Important Visit Information Prescriptions Prescriptions: No Action losartan 100 mg tablet 100 mg PO DAILY Qty: 90 3RF quetiapine [Seroquel] 300 mg tablet 300 mg PO HS Qty: 90 0RF duloxetine 30 mg capsule,delayed release(DR/EC) 30 mg PO BID Qty: 180 0RF potassium chloride 20 mEq tablet extended release 40 meq PO DAILY hydrochlorothiazide 12.5 mg tablet 12.5 mg PO DAILY atorvastatin [Lipitor] 20 mg tablet 20 mg PO QPM Qty: 90 1RF alendronate [Fosamax] 70 mg tablet 70 mg PO WK 90 Days Qty: 12 1RF multivitamin Tablet 1 tab PO DAILY furosemide [Lasix] 40 mg tablet 40 mg PO DAILY cyanocobalamin (vitamin B-12) [Vitamin B-12] 1,000 mcg Tablet 1,000 mcg PO DAILY amlodipine [Norvasc] 5 mg tablet 5 mg PO DAILY calcium carbonate [Calcium 500] 500 mg calcium (1,250 mg) Tablet 500 mg PO DAILY levothyroxine 50 mcg tablet 50 mcg PO DAILY nortriptyline [Pamelor] 10 mg capsule 10 mg PO TID esomeprazole magnesium [Nexium] 40 mg capsule,delayed release(DR/EC) 40 mg PO DAILY montelukast [Singulair] 10 mg tablet 10 mg PO DAILY Referrals Referrals: Aixa Carballo MD [Physician] -
--- NOTE | 2022-12-04 15:14 | XRay Report ---
XR humerus LT 2V HISTORY: 77 years-old Female Fall, L arm pain acute left upper extremity pain status post fall COMPARISON: None TECHNIQUE: 2 views of the left humerus FINDINGS: There is an acute comminuted proximal humeral fracture with fracture lines involving tuberosity and s urgical neck. No significant displacement or dislocation. Moderate glenohumeral and AC joint osteoart hritis. Unremarkable soft tissues. Distal humerus appears intact. IMPRESSION: 1. Acute comminuted proximal humeral fracture without significant displacement. 2. No dislocation. ACT 112: Negative or not required by law. The above report was generated using voice recognition software. It may contain grammatical, syntax o r spelling errors. Electronically signed by: Tavo Dockery M.D. 12/04/2022 3:12 PM
--- NOTE | 2022-12-04 15:45 | CT Scan Report ---
CT head/brain wo con CLINICAL HISTORY: 77 years-old Female with fall. Acute head injury status post fall TECHNIQUE: Multiple axial CT images of the head were obtained without contrast. A dose lowering tech nique was utilized adhering to the principles of ALARA. CT DOSE: 1117.85 mGy.cm COMPARISON: CT cervical spine of same day, head CT 04/24/2014. FINDINGS: No acute intracranial hemorrhage, midline shift, intra-axial mass, hydrocephalus, territorial ischemi a or abnormal extra-axial collection. Involutional changes with chronic microvascular ischemic diseas e. 1.2 cm calcified meningioma adjacent to the left frontoparietal junction, image 25 series 2. This lesion previously measured 1.1 cm. No significant mass effect. The calvarium is intact. Prior bilateral lens repair. The paranasal sinuses, mastoid air cells, and m iddle ear cavities are clear. IMPRESSION: No acute intracranial abnormality or calvarial fracture. ACT 112: Negative or not required by law. The above report was generated using voice recognition software. It may contain grammatical, syntax o r spelling errors. Electronically signed by: Tavo Dockery M.D. 12/04/2022 3:43 PM
--- NOTE | 2022-12-04 15:48 | CT Scan Report ---
CERVICAL SPINE CT CT DOSE: HISTORY: fall TECHNIQUE: Multiaxial CT images of the cervical spine were performed and reformatted in the sagittal and coronal plane without the use of contrast. A dose lowering technique was utilized adhering to e principles of ALARA. COMPARISON: Thyroid ultrasound 04/21/2015. FINDINGS: No fractures. No subluxation. Prevertebral soft tissues and the C1-C2 interval are intact. No pneumothorax. There is again noted a 3 cm right thyroid nodule. This was previously biopsied. Mode rate to severe degenerative disc disease from C3 through C6 with slight reversal of the normal lordot ic curvature. IMPRESSION: No fractures within the cervical spine. ACT 112: Negative or not required by law. Electronically signed by: Dom Davis M.D. 12/04/2022 3:46 PM
[2022-12-04 17:15] LABS: Basophils # (auto) 0.03 K/uL (0-0.2); Basophils % (auto) 0.2 %; Eosinophils # (auto) 0.03 K/uL (0-0.50); Eosinophils % (auto) 0.2 %; Hematocrit (blood only) 36.6 % (34.1-44.9); Hemoglobin 11.9 g/dl (12.0-16.0); Immature Granulocytes # (auto) 0.11 K/uL (0.00-0.02); Immature Granulocytes % (auto) 0.7 %; Lymphocytes # (auto) 1.28 K/uL (1.2-3.4); Lymphocytes % (auto) 8.5 %; Mean Corpuscular Hemoglobin 31.1 pg (25.0-34.0); Mean Corpuscular Hgb Conc 32.5 g/dL (32.0-36.0); Mean Corpuscular Volume 95.6 fL (80.0-100.0); Mean Platelet Volume 12.3 fL (9.4-12.3); Monocytes # (auto) 0.62 K/uL (0.24-0.82); Monocytes % (auto) 4.1 %; Neutrophils # (auto) 12.95 K/uL (1.4-6.5); Neutrophils % (auto) 86.3 %; Platelet Count 268 K/uL (130-400); RDW Coefficient of Variation 13.4 % (11.5-14.5); RDW Standard Deviation 47.5 fL (36.4-46.3); Red Blood Count 3.83 M/uL (3.93-5.22); White Blood Count 15.02 K/ul (4.8-10.8)
--- NOTE | 2022-12-04 17:34 | History & Physical Report ---
Date of Service December 04, 2022 Assessment & Plan (1) Fall: Plan: Katherien a 77-year-old female who presented after she tripped while walking landing on her left shoulder with severe pain 10/10 in her left arm. She was she tripped on the sidewalk, and has not anticoagulants. She did not hit her head. No fevers, chills, sweats, lightheadedness, dizziness, syncope, presyncope. Patient is not a good historian and does not know her meds by her comment list reconciled from the last note/pharmacy record. Patient reports she does live at home has never needed help before. Discussed with ER PA, expressed concern that patient is not able to operate independently at home and with her fall has limited ability to form IADLs. Left humeral fracture No syncope, lightheadedness, dizziness, or poor balance that led to fall. Was mechanical tripping over the sidewalk Outpatient orthopedic follow-up, nonweightbearing, currently in sling Tylenol for pain control with breakthrough morphine for severe pain Neurovascularly intact at time of admission PT/OT and case management consulted for HHS/placement assistance Hypertension Continue losartan Amlodipine previously discontinued then restarted per review of prior note Hypothyroidism Continue Synthroid 50 Allergies Continue Singulair Bipolar 1 Continue nortriptyline, quetiapine 300 mg p.o. nightly, duloxetine 30 mg p.o. twice daily GERD Convert esomeprazole to Protonix DVT prophylaxis: SCDs Diet: Regular Disposition: Medical/surgical CODE STATUS: Full code (2) Closed left humeral fracture: (3) Bipolar 1 disorder: (4) GERD without esophagitis: History of Present Illness Primary Care Provider: NO PCP Katherine a 77-year-old female who presented after she tripped while walking landing on her left shoulder with severe pain 10/10 in her left arm. She was she tripped on the sidewalk, and has not anticoagulants. She did not hit her head. No fevers, chills, sweats, lightheadedness, dizziness, syncope, presyncope. Patient is not a good historian and does not know her meds by her comment list reconciled from the last note/pharmacy record. Patient reports she does live at home has never needed help before. Discussed with ER PA, expressed concern that patient is not able to operate independently at home and with her fall has limited ability to form IADLs. Recommended for case management consultation for potential home services versus PT/OT and temporary placement especially given fall with left arm fracture. Patient denies tobacco /marijuana use, rare social alcohol use. Medical History: Reviewed Medications: Reviewed Surgical History: Reviewed Allergies: Reviewed Social History: Reviewed Code Status: Full code Allergies Allergy/AdvReac Type Severity Reaction Status Date / Time lithium Allergy Unknown syncope Verified 04/14/22 10:51 cheese AdvReac Unknown CONSTIPATIO Verified 04/14/22 10:51 N nut - unspecified AdvReac Unknown CONSTIPATIO Verified 04/14/22 10:51 N milnacipran [From Savella] AdvReac Verified 04/14/22 10:51 Dust Allergy Unknown STUFFY NOSE Uncoded 04/14/22 10:51 Home Medications Medication Instructions Recorded Confirmed Type amlodipine 5 mg tablet (Norvasc) 5 mg PO DAILY 06/04/19 04/14/22 History calcium carbonate 500 mg calcium 500 mg PO DAILY 06/04/19 04/14/22 History (1,250 mg) tablet (Calcium 500) cyanocobalamin (vitamin B-12) 1,000 mcg PO DAILY 06/04/19 04/14/22 History 1,000 mcg tablet (Vitamin B-12) esomeprazole magnesium 40 mg 40 mg PO DAILY 06/04/19 04/14/22 History capsule,delayed release (Nexium) furosemide 40 mg tablet (Lasix) 40 mg PO DAILY 06/04/19 04/14/22 History levothyroxine 50 mcg tablet 50 mcg PO DAILY 06/04/19 04/14/22 History montelukast 10 mg tablet 10 mg PO DAILY 06/04/19 04/14/22 History (Singulair) multivitamin 1 tab PO DAILY 06/04/19 04/14/22 History nortriptyline 10 mg capsule 10 mg PO TID 06/04/19 04/14/22 History (Pamelor) losartan 100 mg tablet 100 mg PO DAILY #90 tabs 06/09/19 04/14/22 Rx alendronate 70 mg tablet (Fosamax) 70 mg PO WK 3 months #12 tabs 02/20/20 04/14/22 Rx atorvastatin 20 mg tablet (Lipitor) 20 mg PO QPM #90 tabs 02/20/20 04/14/22 Rx quetiapine 300 mg tablet (Seroquel) 300 mg PO HS #90 tabs 11/24/21 04/14/22 Rx duloxetine 30 mg capsule,delayed 30 mg PO BID #180 caps 02/16/22 04/14/22 Rx release hydrochlorothiazide 12.5 mg tablet 12.5 mg PO DAILY 04/14/22 04/14/22 History potassium chloride 20 mEq 40 meq PO DAILY 04/14/22 04/14/22 History tablet,extended release Past Med/Surg History Medical History Anxiety Bipolar 1 disorder DVT (deep venous thrombosis) Fibromyalgia GERD without esophagitis Hyperglycemia Hyperlipidemia Hypertension Hypothyroidism (acquired) Insomnia Left knee DJD Osteoarthritis Surgical History S/P wisdom tooth extraction Status post right partial knee replacement Family History Grandmother Breast cancer Mother Myocardial infarction Denies family history of Ovarian cancer Prostate cancer Colorectal cancer Social History Smoking Status: Never smoker Second Hand Exposure: Yes; Hx Alcohol Use: Yes Alcohol type: wine Alcohol Intake Frequency Comment: occasionally Hx Substance Use: No Preferred Language: Divehi Communication Ability: Effective Visual Impairment: No Limitations Hearing Ability: Normal 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 NAD. Cooperative. HEENT: Atraumatic, normocephalic. Vision and hearing grossly intact Pulm: CTAB A&P. -wheezes, -rales, -rhonchi. Symmetrical chest rise. No increased work of breathing. No respiratory distress. Cardiac: RRR, -mrg. Radial pulses intact and symmetrical. Abdominal: Nontender, nondistended, soft. BS present. Ext: Warm, dry. Left hand in sling. [employer] strength, finger flexion/extension intact. Soft touch intact in fingertips bilaterally on right and left hand. Radial pulse intact on right and left hand. Results & Data Results & Data ([facility]) Vital Signs (Past 12 Hours) Vital Signs Temp Pulse Pulse Resp BP BP Pulse Ox 12/04/22 16:56 82 18 164/79 H 98 12/04/22 13:58 36.5 C 87 20 104/64 93 O2 Del Method 12/04/22 16:56 Room Air 12/04/22 13:58 Room Air Code Status & VTE Plan VTE Prophylaxis Plan VTE Prophylaxis will be ordered: Yes PG Care Time/CCT Total # of Minutes Spent Total Time Spent with Patient: Total time spent is greater than 50% in coordination of care (as documented) at patient's floor/unit and/or counseling patient: Coding Level of Care Code 91813 INT INP/OBS CARE 2/55MIN Diagnoses Fall W19.XXXA Closed left humeral fracture S42.302A Bipolar 1 disorder F31.9 GERD without esophagitis K21.9
[2022-12-04 17:40] LABS: Albumin Level 4.4 gm/dl (3.4-5.0); Bilirubin,Total 0.4 mg/dl (0.2-1.0); Calcium 9.3 mg/dl (8.5-10.1); Potassium 5.5 mmol/L (3.5-5.1)
[2022-12-04 17:46] LABS: Albumin Globulin Ratio 1.8 (0.9-2); BUN Creatinine Ratio 15.9 (10-20); Creatinine Clr Calc Pharmacy 43.3 ml/min; Est GFR (African American) 48.3 ml/min; Est GFR (Non-African American) 41.6 ml/min; Globulin 2.4 gm/dl (2.5-4.0); Total Protein 6.8 gm/dl (6.0-8.3)
--- NOTE | 2022-12-04 19:00 | Emergency Department Note ---
ED Visit Note I was consulted by the Advanced Practice Provider, Rolo Hu PA-C. I saw the patient personally and performed a substantive portion of the visit. This includes aspects of the HPI, MDM, diagnostic interpretations, and disposition/plan. .
[2022-12-04] MEDS ORDERED: ACETAMINOPHEN 325 MG TAB PO PRN (20:31)
[2022-12-04] MEDS ORDERED: oxyCODONE HCL IR 5 MG TAB (IMMEDIATE RELEASE) PO PRN (20:31)
[2022-12-04] MEDS: QUEtiapine FUMARATE 300 MG TABLET PO SCH (21:37)
[2022-12-04] MEDS: NORTRIPTYLINE HCL 10 MG CAP PO SCH (21:38)
[2022-12-04] MEDS: ATORVASTATIN 20 MG TAB PO SCH (21:38)
[2022-12-04] MEDS: DULoxetine HCL 30 MG CAP PO SCH (21:38)
[2022-12-04] MEDS: oxyCODONE HCL IR 5 MG TAB (IMMEDIATE RELEASE) PO PRN (21:40)
[2022-12-05] MEDS: LEVOTHYROXINE SODIUM 50 MCG TABLET PO SCH (05:49)
[2022-12-05] MEDS: NORTRIPTYLINE HCL 10 MG CAP PO SCH ×3 (07:49→20:04)
[2022-12-05] MEDS: DULoxetine HCL 30 MG CAP PO SCH ×2 (07:50→20:04)
[2022-12-05] MEDS: hydroCHLOROthiazide 25 MG TAB PO SCH (07:50)
[2022-12-05] MEDS: CALCIUM CARBONATE 1250MG TAB PO SCH (07:50)
[2022-12-05] MEDS: LOSARTAN POTASSIUM 50 MG TAB PO SCH (07:50)
[2022-12-05] MEDS: MONTELUKAST SODIUM 10 MG TABLET PO SCH (07:51)
[2022-12-05] MEDS: POTASSIUM CHLORIDE CRTAB 20 MEQ TABCR PO SCH (07:51)
[2022-12-05] MEDS: amLODIPine BESYLATE 5 MG TAB PO SCH (07:51)
[2022-12-05 08:15] LABS: Basophils # (auto) 0.02 K/uL (0-0.2); Basophils % (auto) 0.2 %; Eosinophils # (auto) 0.03 K/uL (0-0.50); Eosinophils % (auto) 0.2 %; Hematocrit (blood only) 34.6 % (34.1-44.9); Hemoglobin 11.2 g/dl (12.0-16.0); Immature Granulocytes # (auto) 0.06 K/uL (0.00-0.02); Immature Granulocytes % (auto) 0.5 %; Lymphocytes % (auto) 9.7 %; Mean Corpuscular Hemoglobin 30.5 pg (25.0-34.0); Mean Corpuscular Hgb Conc 32.4 g/dL (32.0-36.0); Mean Corpuscular Volume 94.3 fL (80.0-100.0); Mean Platelet Volume 12.2 fL (9.4-12.3); Monocytes # (auto) 0.95 K/uL (0.24-0.82); Monocytes % (auto) 7.7 %; Neutrophils % (auto) 81.7 %; Platelet Count 241 K/uL (130-400); RDW Coefficient of Variation 13.6 % (11.5-14.5); RDW Standard Deviation 47.2 fL (36.4-46.3); Red Blood Count 3.67 M/uL (3.93-5.22); White Blood Count 12.36 K/ul (4.8-10.8)
[2022-12-05] MEDS ORDERED: MoRPHine SULFATE 4 MG/ML 1 ML CARP\\VIAL IV PRN (08:34)
[2022-12-05] MEDS ORDERED: MoRPHine SULFATE 2 MG/ML CARP IV PRN (08:34)
[2022-12-05] MEDS: ACETAMINOPHEN 500 MG TAB PO SCH ×3 (08:50→20:04)
[2022-12-05 08:54] LABS: Calcium 9.1 mg/dl (8.5-10.1); Creatinine Clr Calc Pharmacy 47.8 ml/min; Est GFR (African American) 60.2 ml/min; Est GFR (Non-African American) 51.9 ml/min; Potassium 5.2 mmol/L (3.5-5.1)
[2022-12-05] MEDS: oxyCODONE HCL IR 5 MG TAB (IMMEDIATE RELEASE) PO PRN (13:35)
--- NOTE | 2022-12-05 14:47 | Hospitalist Progress Note ---
Date of Service December 05, 2022 Assessment & Plan (1) Fall: Plan: Katherine a 77-year-old female who presented after she tripped while walking landing on her left shoulder with severe pain 10/10 in her left arm. She was she tripped on the sidewalk, and has not anticoagulants. She did not hit her head. No fevers, chills, sweats, lightheadedness, dizziness, syncope, presyncope. Patient is not a good historian and does not know her meds by her comment list reconciled from the last note/pharmacy record. Patient reports she does live at home has never needed help before. Discussed with ER PA, expressed concern that patient is not able to operate independently at home and with her fall has limited ability to form IADLs. Fall resulting in Left humeral fracture No syncope, lightheadedness, dizziness, or poor balance that led to fall. Was mechanical tripping over the sidewalk Outpatient orthopedic follow-up, nonweightbearing, currently in sling Tylenol for mild pain, OxyIR for moderate to severe pain, and Morphine for breakthrough Neurovascularly intact at time of admission PT/OT and case management consulted for HHS/placement assistance - Did not do well with OT, PT eval still pending. OT recommending rehab. - Case management consulted to assist in dc arrangements (2) Closed left humeral fracture: Plan: - As above (3) Bipolar 1 disorder: Plan: Continue nortriptyline, quetiapine 300 mg p.o. nightly, duloxetine 30 mg p.o. twice daily (4) GERD without esophagitis: Plan: Convert esomeprazole to Protonix (5) Hypertension: Plan: Continue losartan Amlodipine previously discontinued then restarted per review of prior note (6) Hypothyroidism (acquired): Plan: Continue Synthroid 50mcg Plan Pain control, await PT evaluation to determine appropriate disposition for patient upon discharge. Updated patient's daughter, Josie, via phone this afternoon. Above plan of care d/w Dr. Padilla. Admission and Anticipated Discharge Date Admission Date: December 04, 2022 Subjective Patient was seen on daily rounds this morning. At the time of my visit, she was being evaluated by OT. She currently c/o shoulder pain, no other complaints. Denies cp or dyspnea. Her fall was mechanical in nature. No lightheadedness/di zziness. She lives alone, has animals and is frustrated that she isn't being discharged yet. Review of Systems Review of Systems: All systems reviewed and are unremarkable except as noted in HPI and below. Denies fever, chills, fatigue, headache, nasal congestion, sore throat, cough, chest pain, shortness of breath, palpitations, orthopnea, PND, abdominal pain, n/v/d, constipation, dysuria, hematuria, frequency, back pain, easy bruising or bleeding, skin lesions or rashes. Physical Exam Physical Exam: GENERAL: 77 yo Well-developed, well-nourished WF. NAD. LUNGS: Clear to auscultation bilaterally. No W/R/R. CARDIOVASCULAR: Regular rate and rhythm. ABDOMEN: Soft, non-tender and non-distended. BS normoactive x 4 quad. EXTREMITIES: No edema. L arm in sling. Peripheral pulses +2/4. NEUROLOGIC: A&O x3. PSYCHIATRIC: Cooperative. Appropriate mood and affect. SKIN: Warm, dry, intact. No rashes or lesions. Results & Data Results & Data ([facility]) Vital Signs (Past 12 Hours) Vital Signs Temp Pulse Resp BP Pulse Ox O2 Del Method 12/05/22 08:00 Room Air 12/05/22 07:11 36.8 C 95 H 18 149/81 H 90 Room Air Laboratory Results 12/05/22 07:38 12/05/22 07:38 PG Care Time/CCT Total # of Minutes Spent Total Time Spent with Patient: Total time spent is greater than 50% in coordination of care (as documented) at patient's floor/unit and/or counseling patient: Coding Level of Care Code 19828 SUB INP/OBS CARE 2/35MIN Diagnoses Fall W19.XXXA Closed left humeral fracture S42.302A Bipolar 1 disorder F31.9 GERD without esophagitis K21.9 Hypertension I10 Hypothyroidism (acquired) E03.9
[2022-12-05] MEDS ORDERED: oxyCODONE HCL IR 5 MG TAB (IMMEDIATE RELEASE) PO PRN (16:22)
[2022-12-05] MEDS: MoRPHine SULFATE 2 MG/ML CARP IV PRN (16:29)
[2022-12-05] MEDS: ATORVASTATIN 20 MG TAB PO SCH (20:04)
[2022-12-05] MEDS: QUEtiapine FUMARATE 300 MG TABLET PO SCH (20:04)
[2022-12-06] MEDS: LEVOTHYROXINE SODIUM 50 MCG TABLET PO SCH (05:35)
[2022-12-06] MEDS: LOSARTAN POTASSIUM 50 MG TAB PO SCH (08:03)
[2022-12-06] MEDS: hydroCHLOROthiazide 25 MG TAB PO SCH (08:03)
[2022-12-06] MEDS: DULoxetine HCL 30 MG CAP PO SCH ×2 (08:03→21:06)
[2022-12-06] MEDS: NORTRIPTYLINE HCL 10 MG CAP PO SCH ×3 (08:03→21:05)
[2022-12-06] MEDS: MONTELUKAST SODIUM 10 MG TABLET PO SCH (08:03)
[2022-12-06] MEDS: ACETAMINOPHEN 500 MG TAB PO SCH ×3 (08:04→21:07)
[2022-12-06] MEDS: amLODIPine BESYLATE 5 MG TAB PO SCH (08:04)
[2022-12-06] MEDS: POTASSIUM CHLORIDE CRTAB 20 MEQ TABCR PO SCH (08:04)
[2022-12-06] MEDS: CALCIUM CARBONATE 1250MG TAB PO SCH (08:04)
--- NOTE | 2022-12-06 14:07 | Hospitalist Progress Note ---
Date of Service December 06, 2022 Assessment & Plan (1) Fall: Plan: Katherine a 77-year-old female who presented after she tripped while walking landing on her left shoulder with severe pain 10/10 in her left arm. She was she tripped on the sidewalk, and has not anticoagulants. She did not hit her head. No fevers, chills, sweats, lightheadedness, dizziness, syncope, presyncope. Patient is not a good historian and does not know her meds by her comment list reconciled from the last note/pharmacy record. Patient reports she does live at home has never needed help before. Discussed with ER PA, expressed concern that patient is not able to operate independently at home and with her fall has limited ability to form IADLs. Fall resulting in Left humeral fracture No syncope, lightheadedness, dizziness, or poor balance that led to fall. Was mechanical tripping over the sidewalk Outpatient orthopedic follow-up, nonweightbearing, currently in sling Tylenol for mild pain, OxyIR for moderate to severe pain, and Morphine for breakthrough Neurovascularly intact at time of admission PT/OT and case management consulted for HHS/placement assistance - Both PT and OT recommending rehab - CM working on this - Pt to be made full admission while awaiting acceptance at a rehab facility (2) Closed left humeral fracture: Plan: - As above (3) Bipolar 1 disorder: Plan: Continue nortriptyline, quetiapine 300 mg p.o. nightly, duloxetine 30 mg p.o. twice daily (4) GERD without esophagitis: Plan: Convert esomeprazole to Protonix (5) Hypertension: Plan: Continue losartan and Amlodipine (6) Hypothyroidism (acquired): Plan: Continue Synthroid 50mcg Plan Full admit. CM working on referrals to rehab facility. Above plan of care d/w Dr. Padilla. Admission and Anticipated Discharge Date Admission Date: December 04, 2022 Subjective Patient seen on daily rounds this morning. Review of Systems Review of Systems: All systems reviewed and are unremarkable except as noted in HPI and below. Denies fever, chills, fatigue, headache, nasal congestion, sore throat, cough, chest pain, shortness of breath, palpitations, orthopnea, PND, abdominal pain, n/v/d, constipation, dysuria, hematuria, frequency, back pain, easy bruising or bleeding, skin lesions or rashes. Physical Exam Physical Exam: GENERAL: 77 yo Well-developed, well-nourished WF. NAD. LUNGS: Clear to auscultation bilaterally. No W/R/R. CARDIOVASCULAR: Regular rate and rhythm. ABDOMEN: Soft, non-tender and non-distended. BS normoactive x 4 quad. EXTREMITIES: No edema. L arm in sling. Peripheral pulses +2/4. NEUROLOGIC: A&O x3. PSYCHIATRIC: Cooperative. Appropriate mood and affect. SKIN: Warm, dry, intact. No rashes or lesions. Results & Data Results & Data ([facility]) Vital Signs (Past 12 Hours) Vital Signs Temp Pulse Resp BP Pulse Ox O2 Del Method 12/06/22 08:10 36.9 C 85 16 143/65 H 94 Room Air PG Care Time/CCT Total # of Minutes Spent Total Time Spent with Patient: Total time spent is greater than 50% in coordination of care (as documented) at patient's floor/unit and/or counseling patient: Coding Level of Care Code 28265 SUB INP/OBS CARE 2/35MIN Diagnoses Fall W19.XXXA Closed left humeral fracture S42.302A Bipolar 1 disorder F31.9 GERD without esophagitis K21.9 Hypertension I10 Hypothyroidism (acquired) E03.9
[2022-12-06] MEDS: oxyCODONE HCL IR 5 MG TAB (IMMEDIATE RELEASE) PO PRN (21:04)
[2022-12-06] MEDS: ATORVASTATIN 20 MG TAB PO SCH (21:06)
[2022-12-06] MEDS: MoRPHine SULFATE 2 MG/ML CARP IV PRN (22:07)
[2022-12-06] MEDS: QUEtiapine FUMARATE 300 MG TABLET PO SCH (23:03)
[2022-12-07] MEDS: LEVOTHYROXINE SODIUM 50 MCG TABLET PO SCH (06:00)
[2022-12-07] MEDS: MoRPHine SULFATE 2 MG/ML CARP IV PRN ×2 (06:04→22:51)
[2022-12-07] MEDS: MONTELUKAST SODIUM 10 MG TABLET PO SCH (08:18)
[2022-12-07] MEDS: amLODIPine BESYLATE 5 MG TAB PO SCH (08:19)
[2022-12-07] MEDS: CALCIUM CARBONATE 1250MG TAB PO SCH (08:19)
[2022-12-07] MEDS: POTASSIUM CHLORIDE CRTAB 20 MEQ TABCR PO SCH ×2 (08:19→08:28)
[2022-12-07] MEDS: hydroCHLOROthiazide 25 MG TAB PO SCH (08:20)
[2022-12-07] MEDS: LOSARTAN POTASSIUM 50 MG TAB PO SCH (08:21)
[2022-12-07] MEDS: DULoxetine HCL 30 MG CAP PO SCH ×2 (08:22→20:19)
[2022-12-07] MEDS: ACETAMINOPHEN 500 MG TAB PO SCH ×4 (08:22→20:17)
[2022-12-07] MEDS: NORTRIPTYLINE HCL 10 MG CAP PO SCH ×3 (08:22→20:18)
[2022-12-07] MEDS: oxyCODONE HCL IR 5 MG TAB (IMMEDIATE RELEASE) PO PRN ×3 (08:26→19:24)
--- NOTE | 2022-12-07 14:22 | Hospitalist Progress Note ---
Date of Service December 07, 2022 Assessment & Plan (1) Fall: Plan: Katherine a 77-year-old female who presented after she tripped while walking landing on her left shoulder with severe pain 10/10 in her left arm. She was she tripped on the sidewalk, and has not anticoagulants. She did not hit her head. No fevers, chills, sweats, lightheadedness, dizziness, syncope, presyncope. Patient is not a good historian and does not know her meds by her comment list reconciled from the last note/pharmacy record. Patient reports she does live at home has never needed help before. Fall resulting in Left humeral fracture No syncope, lightheadedness, dizziness, or poor balance that led to fall. Was mechanical tripping over the sidewalk Outpatient orthopedic follow-up, nonweightbearing, currently in sling Tylenol for mild pain, OxyIR for moderate to severe pain, and Morphine for breakthrough Neurovascularly intact at time of admission PT/OT and case management consulted for HHS/placement assistance - Both PT and OT recommending rehab - CM working on this - Pt to be made full admission while awaiting acceptance at a rehab facility (2) Closed left humeral fracture: Plan: - As above (3) Bipolar 1 disorder: Plan: Continue nortriptyline, quetiapine 300 mg p.o. nightly, duloxetine 30 mg p.o. twice daily (4) GERD without esophagitis: Plan: Convert esomeprazole to Protonix (5) Hypertension: Plan: Continue losartan and Amlodipine (6) Hypothyroidism (acquired): Plan: Continue Synthroid 50mcg Plan Full admit. CM working on referrals to rehab facility. Above plan of care d/w Dr. Padilla. Admission and Anticipated Discharge Date Admission Date: December 06, 2022 Subjective Patient was seen this AM and she is sitting upright eating lunch. CM has faxed a referral to [facility]. Patient voices no complaints except she does not like the fish she had for lunch today. She feels her pain is controlled. Per notes, patient's daughter agreed to watch patient's pets. I tried to call patient's daughter today and no answer. CM faxed a referral to [facility]. Review of Systems Review of Systems: All ROS are negative unless stated above or in the HPI Denies any chest pain, SOB, Cough, congestion, abdominal pain or N/V Physical Exam Constitutional: WD/WN, vitals as above Neck: trachea midline, no thyromegaly Respiratory: normal respiratory effort, lungs clear to auscultation Cardiovascular: Rate/Rhythm: regular rate and regular rhythm Gastrointestinal (Abdomen): obese, + bowel sounds x 4 quadrants, no HSM or masses and nontender Musculoskeletal: left arm in a sling Skin: no rashes, warm and dry Psychiatric: A+Ox3, euthymic affect Results & Data Results & Data ([facility]) Vital Signs (Past 12 Hours) Vital Signs Temp Pulse Resp BP Pulse Ox O2 Del Method 12/07/22 11:18 36.5 C 76 20 113/68 90 Room Air 12/07/22 07:30 36.5 C 77 20 117/65 94 Room Air PG Care Time/CCT Total # of Minutes Spent Total Time Spent with Patient: Total time spent is greater than 50% in coordination of care (as documented) at patient's floor/unit and/or counseling patient: Coding Level of Care Code 44979 SUB INP/OBS CARE 12/06MIN Diagnoses Fall W19.XXXA Closed left humeral fracture S42.302A Bipolar 1 disorder F31.9 GERD without esophagitis K21.9 Hypertension I10 Hypothyroidism (acquired) E03.9
[2022-12-07] MEDS: ATORVASTATIN 20 MG TAB PO SCH (20:17)
[2022-12-07] MEDS: QUEtiapine FUMARATE 300 MG TABLET PO SCH (22:51)
[2022-12-08] MEDS: oxyCODONE HCL IR 5 MG TAB (IMMEDIATE RELEASE) PO PRN ×2 (00:47→07:31)
[2022-12-08] MEDS: LEVOTHYROXINE SODIUM 50 MCG TABLET PO SCH (06:07)
[2022-12-08] MEDS: MONTELUKAST SODIUM 10 MG TABLET PO SCH (09:18)
[2022-12-08] MEDS: DULoxetine HCL 30 MG CAP PO SCH ×2 (09:18→20:10)
[2022-12-08] MEDS: NORTRIPTYLINE HCL 10 MG CAP PO SCH ×3 (09:18→20:09)
[2022-12-08] MEDS: ACETAMINOPHEN 500 MG TAB PO SCH (09:18)
[2022-12-08] MEDS: CALCIUM CARBONATE 1250MG TAB PO SCH (09:18)
[2022-12-08] MEDS: POTASSIUM CHLORIDE CRTAB 20 MEQ TABCR PO SCH (09:19)
[2022-12-08 09:24] LABS: Hematocrit (blood only) 31.5 % (37.0-47.0); Hemoglobin 10.3 g/dl (12.0-16.0); Mean Corpuscular Hemoglobin 30.7 pg (25.0-34.0); Mean Corpuscular Hgb Conc 32.7 g/dL (32.0-36.0); Mean Platelet Volume 11.9 fL (9.4-12.4); Platelet Count 220 K/uL (130-400); RDW Coefficient of Variation 13.6 % (11.5-14.5); RDW Standard Deviation 47.1 fL (36.4-46.3); Red Blood Count 3.35 M/uL (4.20-5.40); White Blood Count 8.74 K/ul (4.8-10.8)
[2022-12-08] MEDS ORDERED: ACETAMINOPHEN 500 MG TAB PO PRN (09:49)
[2022-12-08] MEDS ORDERED: oxyCODONE HCL IR 5 MG TAB (IMMEDIATE RELEASE) PO PRN ×2 (09:50→13:30)
[2022-12-08 10:46] LABS: Albumin Level 3.6 gm/dl (3.4-5.0); Bilirubin Direct 0.1 mg/dl (0-0.2); Bilirubin,Total 0.7 mg/dl (0.2-1.0); Calcium 9.4 mg/dl (8.5-10.1)
[2022-12-08 10:52] LABS: BUN Creatinine Ratio 19.4 (10-20); Creatinine Clr Calc Pharmacy 29.5 ml/min; Est GFR (African American) 33.6 ml/min; Total Protein 6.3 gm/dl (6.0-8.3)
[2022-12-08] MEDS: LOSARTAN POTASSIUM 50 MG TAB PO SCH (11:17)
[2022-12-08] MEDS: amLODIPine BESYLATE 5 MG TAB PO SCH (11:17)
[2022-12-08] MEDS: hydroCHLOROthiazide 25 MG TAB PO SCH (11:17)
[2022-12-08] MEDS ORDERED: Nursing to Pharmacy Communication SCH (11:30)
--- NOTE | 2022-12-08 14:05 | Hospitalist Progress Note ---
Date of Service December 08, 2022 Assessment & Plan (1) Fall: Plan: Katherine a 77-year-old female who presented after she tripped while walking landing on her left shoulder with severe pain 10/10 in her left arm. She was she tripped on the sidewalk, and has not anticoagulants. She did not hit her head. No fevers, chills, sweats, lightheadedness, dizziness, syncope, presyncope. Patient is not a good historian and does not know her meds by her comment list reconciled from the last note/pharmacy record. Patient reports she does live at home has never needed help before. Fall resulting in Left humeral fracture No syncope, lightheadedness, dizziness, or poor balance that led to fall. Was mechanical tripping over the sidewalk Outpatient orthopedic follow-up, nonweightbearing, currently in sling Tylenol for mild pain, OxyIR for moderate to severe pain, and Morphine for breakthrough Neurovascularly intact at time of admission and continues to be intact PT/OT and case management consulted for HHS/placement assistance - Both PT and OT recommending rehab - CM working on this [facility] will accept patient's insurance but they do not currently have a bed available. Patient stated today she is willing to go to rehab as long as her daughter continues to care for her pets. I attempted to call patient's daughter the past 2 days with no answer. - Pt to be made full admission while awaiting acceptance at a rehab facility (2) Closed left humeral fracture: Plan: - As above (3) Bipolar 1 disorder: Plan: Continue nortriptyline, quetiapine 300 mg p.o. nightly, duloxetine 30 mg p.o. twice daily (4) GERD without esophagitis: Plan: Convert esomeprazole to Protonix (5) Hypertension: Plan: Continue losartan and Amlodipine (6) Hypothyroidism (acquired): Plan: Continue Synthroid 50mcg (7) Hypotension: Plan: Held Amlodipine, HCTZ and Losartan today Patient is asymptomatic. No SOB or dizziness Decreased narcotic pain regimen to every 6 hours instead of 4 hours for the Oxycodone Discontinued the Morphine sulfate Continue Tylenol q 8 hours as needed Continue to monitor vitals, repeat AM labs Patient states she felt was not drinking enough fluids today. Will give a bolus NSS Plan Full admit. CM working on referrals to rehab facility, [facility] patient but [facility] do not currently have a bed. Above plan of care d/w Dr. Neely. Admission and Anticipated Discharge Date Admission Date: December 06, 2022 Subjective Patient is awake in bed seen while eating breakfast and also seen later after PT and OT evaluations. Patient states she has not had a BM since admission. She denies any nausea, vomiting or abdominal pain. Patient also denies any chest pain, shortness of breath or dizziness currently. She does states sometimes she gets dizzy after taking her Seroquel Review of Systems Review of Systems: All ROS are negative unless stated above or in the HPI Denies any chest pain, SOB, Cough, congestion, abdominal pain or N/V Gastrointestinal: + constipation; no nausea, no vomiting, no diarrhea/loose stools and no blood in stools Physical Exam Constitutional: WD/WN, vitals as above Neck: trachea midline, no thyromegaly Respiratory: normal respiratory effort, lungs clear to auscultation Cardiovascular: Rate/Rhythm: regular rate and regular rhythm Gastrointestinal (Abdomen): Inspection/Auscultation: abdomen normal to inspection and normal bowel sounds obese, soft nontender Skin: no rashes, warm and dry Psychiatric: A+Ox3, euthymic affect Results & Data Results & Data ([facility]) Vital Signs (Past 12 Hours) Vital Signs Temp Pulse Resp BP Pulse Ox O2 Del Method 12/08/22 11:16 36.6 C 93 H 18 82/47 L 94 Room Air 12/08/22 11:16 36.6 C 90 18 90/58 L 93 Room Air 12/08/22 11:00 36.6 C 81 18 100/63 94 Room Air 12/08/22 09:30 36.6 C 83 18 99/62 L 93 Room Air 12/08/22 07:40 36.7 C 88 18 98/62 L 92 Room Air 12/08/22 08:00 Room Air Laboratory Results Abnormal lab results 12/08/22 12/08/22 Range/Units 09:11 09:11 RBC 3.35 L (4.20-5.40) M/uL Hgb 10.3 L (12.0-16.0) g/dl Hct 31.5 L (37.0-47.0) % RDW Std Deviation 47.1 H (36.4-46.3) fL Sodium 133 L (136-145) mmol/L BUN 33 H (6-23) mg/dl Creatinine 1.70 H (0.6-1.2) mg/dl Glucose 110 H (70-99(Fasting)) mg/dl ALT 94 H (7-52) U/L Alkaline Phosphatase 125 H (34-104) U/L PG Care Time/CCT Total # of Minutes Spent Total Time Spent with Patient: Total time spent is greater than 50% in coordination of care (as documented) at patient's floor/unit and/or counseling patient: Coding Level of Care Code 94079 SUB INP/OBS CARE 2/35MIN Diagnoses Fall W19.XXXA Closed left humeral fracture S42.302A Bipolar 1 disorder F31.9 GERD without esophagitis K21.9 Hypertension I10 Hypothyroidism (acquired) E03.9 Hypotension I95.9
[2022-12-08] MEDS: POLYETHYLENE (MIRALAX) 17 GM PACK PO SCH (15:59)
[2022-12-08] MEDS ORDERED: SODIUM CHLORIDE 0.9% 500 ML IV SCH (16:00)
[2022-12-08] MEDS: ATORVASTATIN 20 MG TAB PO SCH (20:10)
[2022-12-08] MEDS: QUEtiapine FUMARATE 300 MG TABLET PO SCH (22:55)
[2022-12-09] MEDS: LEVOTHYROXINE SODIUM 50 MCG TABLET PO SCH (05:36)
[2022-12-09 08:18] LABS: Hematocrit (blood only) 33.2 % (37.0-47.0); Hemoglobin 10.9 g/dl (12.0-16.0); Mean Corpuscular Hemoglobin 30.7 pg (25.0-34.0); Mean Corpuscular Hgb Conc 32.8 g/dL (32.0-36.0); Mean Corpuscular Volume 93.5 fL (80.0-100.0); Mean Platelet Volume 12.2 fL (9.4-12.4); Platelet Count 256 K/uL (130-400); RDW Coefficient of Variation 13.3 % (11.5-14.5); Red Blood Count 3.55 M/uL (4.20-5.40); White Blood Count 8.63 K/ul (4.8-10.8)
--- NOTE | 2022-12-09 08:24 | Hospitalist Progress Note ---
Date of Service December 09, 2022 Assessment & Plan (1) Fall: Plan: Katherine a 77-year-old female who presented after she tripped while walking landing on her left shoulder with severe pain 10/10 in her left arm. She was she tripped on the sidewalk, and has not anticoagulants. She did not hit her head. No fevers, chills, sweats, lightheadedness, dizziness, syncope, presyncope. Patient is not a good historian and does not know her meds by her comment list reconciled from the last note/pharmacy record. Patient reports she does live at home has never needed help before. Fall resulting in Left humeral fracture No syncope, lightheadedness, dizziness, or poor balance that led to fall. Was mechanical tripping over the sidewalk Outpatient orthopedic follow-up, nonweightbearing, currently in sling Tylenol for mild pain, OxyIR for moderate to severe pain Neurovascularly intact at time of admission and continues to be intact PT/OT and case management consulted for HHS/placement assistance - Both PT and OT recommending rehab - CM working on this [facility] will accept patient's insurance but they do not currently have a bed available. Today patient was asking to go home, I spoke with daughter over the phone and she is planning on visiting her mother later today and will discuss with her why going to a rehab for a short time is a safer option for patient. - Pt to be made full admission while awaiting acceptance at a rehab facility (2) Closed left humeral fracture: Plan: - As above (3) Bipolar 1 disorder: Plan: Continue nortriptyline, quetiapine 300 mg p.o. nightly, duloxetine 30 mg p.o. twice daily (4) GERD without esophagitis: Plan: Convert esomeprazole to Protonix (5) Hypertension: Plan: Losartan and HCTZ on at home and are currently held due to hypotension - Restarted Amlodipine 5mg today BP 151/72 - Continue to monitor BP (6) Hypothyroidism (acquired): Plan: Continue Synthroid 50mcg (7) Hypotension: Plan: Amlodipine, HCTZ and Losartan were on hold for hypotension Patient is asymptomatic. No SOB or dizziness Decreased narcotic pain regimen to every 6 hours instead of 4 hours for the Oxycodone Discontinued the Morphine sulfate Continue Tylenol q 8 hours as needed Continue to monitor vitals, repeat AM labs Restarted Amlodipine 5mg today BP 151/72 (8) Elevated LFTs: Plan: - Has appeared to have slight elevation of Alkaline Phosphatase since 2019. - ALT slightly elevated which appears new. - Normal AST and bilirubin - Will repeat labs and check liver U/S, likely could be secondary to medications or hepatic steatosis Plan Full admit. CM working on referrals to rehab facility, [facility] will accept patient but they do not currently have a bed. Above plan of care d/w Dr. Neely. Admission and Anticipated Discharge Date Admission Date: December 06, 2022 Subjective Currently awaiting a bed at [facility]. Patient is upset and states she just wants to be discharged to home. I was able to speak with patient's daughter today via the phone. She stated that her mother is "accident prone" and also her moods can shift from good to bad easily. PT notes recommend Rehab (3 hours combined therapy daily) Patient denies any chest or abdominal pain, nausea, vomiting, SOB or dyspnea Review of Systems Review of Systems: All ROS are negative unless stated above or in the HPI Denies any chest pain, SOB, Cough, congestion, abdominal pain or N/V Gastrointestinal: + constipation; no nausea, no vomiting, no diarrhea/loose stools and no blood in stools Genitourinary: no dysuria, no difficulty urinating and no urinary frequency Physical Exam Constitutional: WD/WN, vitals as above Neck: trachea midline, no thyromegaly Respiratory: normal respiratory effort, lungs clear to auscultation Cardiovascular: Rate/Rhythm: regular rate and regular rhythm Gastrointestinal (Abdomen): Inspection/Auscultation: abdomen normal to inspection and normal bowel sounds obese Skin: no rashes, warm and dry Psychiatric: A+Ox3, euthymic affect Results & Data Results & Data ([facility]) Vital Signs (Past 12 Hours) Vital Signs Temp Pulse Resp BP Pulse Ox O2 Del Method 12/09/22 07:07 36.7 C 98 H 18 133/73 93 Room Air 12/08/22 23:06 36.9 C 93 H 20 155/71 H 93 Room Air Laboratory Results Abnormal lab results 12/09/22 12/09/22 Range/Units 07:08 07:08 RBC 3.55 L (4.20-5.40) M/uL Hgb 10.9 L (12.0-16.0) g/dl Hct 33.2 L (37.0-47.0) % Sodium 134 L (136-145) mmol/L Anion Gap 12 H (3-11) BUN 31 H (6-23) mg/dl BUN/Creatinine Ratio 26.3 H (10-20) Glucose 123 H (70-99(Fasting)) mg/dl ALT 84 H (7-52) U/L Alkaline Phosphatase 140 H (34-104) U/L PG Care Time/CCT Total # of Minutes Spent Total Time Spent with Patient: Total time spent is greater than 50% in coordination of care (as documented) at patient's floor/unit and/or counseling patient: Coding Level of Care Code 64010 SUB INP/OBS CARE 2/35MIN Diagnoses Fall W19.XXXA Closed left humeral fracture S42.302A Bipolar 1 disorder F31.9 GERD without esophagitis K21.9 Hypertension I10 Hypothyroidism (acquired) E03.9 Hypotension I95.9 Elevated LFTs R79.89
[2022-12-09 08:46] LABS: Bilirubin,Total 0.7 mg/dl (0.2-1.0); Calcium 9.9 mg/dl (8.5-10.1); Potassium 4.3 mmol/L (3.5-5.1)
[2022-12-09 08:52] LABS: BUN Creatinine Ratio 26.3 (10-20); Creatinine Clr Calc Pharmacy 42.5 ml/min; Est GFR (African American) 52.2 ml/min; Est GFR (Non-African American) 45.1 ml/min; Total Protein 7.1 gm/dl (6.0-8.3)
[2022-12-09] MEDS: POLYETHYLENE (MIRALAX) 17 GM PACK PO SCH (08:57)
[2022-12-09] MEDS: DULoxetine HCL 30 MG CAP PO SCH ×2 (08:59→19:49)
[2022-12-09] MEDS: POTASSIUM CHLORIDE CRTAB 20 MEQ TABCR PO SCH (08:59)
[2022-12-09] MEDS: NORTRIPTYLINE HCL 10 MG CAP PO SCH ×2 (08:59→19:49)
[2022-12-09] MEDS: CALCIUM CARBONATE 1250MG TAB PO SCH (08:59)
[2022-12-09] MEDS: MONTELUKAST SODIUM 10 MG TABLET PO SCH (08:59)
[2022-12-09 11:43] LABS: Albumin Globulin Ratio 1.3 (0.9-2); Globulin 3.1 gm/dl (2.5-4.0)
[2022-12-09] MEDS ORDERED: ACETAMINOPHEN 325 MG TAB PO PRN (14:30)
[2022-12-09] MEDS: oxyCODONE HCL IR 5 MG TAB (IMMEDIATE RELEASE) PO PRN (15:03)
[2022-12-09] MEDS: ATORVASTATIN 20 MG TAB PO SCH (19:49)
[2022-12-09] MEDS: QUEtiapine FUMARATE 300 MG TABLET PO SCH (22:56)
[2022-12-10] MEDS: LEVOTHYROXINE SODIUM 50 MCG TABLET PO SCH (05:34)
[2022-12-10 06:03] LABS: Hematocrit (blood only) 30.4 % (37.0-47.0); Mean Corpuscular Hemoglobin 30.6 pg (25.0-34.0); Mean Corpuscular Hgb Conc 32.9 g/dL (32.0-36.0); Mean Platelet Volume 11.8 fL (9.4-12.4); Platelet Count 247 K/uL (130-400); RDW Coefficient of Variation 13.4 % (11.5-14.5); RDW Standard Deviation 45.8 fL (36.4-46.3); Red Blood Count 3.27 M/uL (4.20-5.40); White Blood Count 7.12 K/ul (4.8-10.8)
[2022-12-10 06:46] LABS: Albumin Level 3.7 gm/dl (3.4-5.0); Bilirubin,Total 0.6 mg/dl (0.2-1.0); Calcium 9.1 mg/dl (8.5-10.1); Potassium 3.8 mmol/L (3.5-5.1)
[2022-12-10 07:03] LABS: Albumin Globulin Ratio 1.4 (0.9-2); BUN Creatinine Ratio 27.8 (10-20); Creatinine Clr Calc Pharmacy 63.5 ml/min; Est GFR (African American) 84.9 ml/min; Est GFR (Non-African American) 73.2 ml/min; Globulin 2.7 gm/dl (2.5-4.0); Total Protein 6.4 gm/dl (6.0-8.3)
--- NOTE | 2022-12-10 07:36 | Ultrasound Report ---
ABDOMINAL ULTRASOUND, RIGHT UPPER QUADRANT HISTORY: RUQ - elevated LFT. COMPARISON: Right upper quadrant ultrasound and CT of the abdomen July 18, 2013. FINDINGS: Liver morphology is normal. There is a 2.4 cm lateral segment hepatic cyst. There is no jamel iary ductal dilatation status post cholecystectomy. Common bile duct measures 4 mm in caliber. Pancre atic body is normal. Head and tail are obscured. There is no right hydronephrosis. IMPRESSION: No significant abnormality within the right upper quadrant status post cholecystectomy. ACT 112: Negative or not required by law. Electronically signed by: Yang Medina M.D. 12/10/2022 7:35 AM
[2022-12-10] MEDS: POLYETHYLENE (MIRALAX) 17 GM PACK PO SCH (08:14)
[2022-12-10] MEDS: POTASSIUM CHLORIDE CRTAB 20 MEQ TABCR PO SCH (08:15)
[2022-12-10] MEDS: DULoxetine HCL 30 MG CAP PO SCH ×2 (08:15→20:20)
[2022-12-10] MEDS: NORTRIPTYLINE HCL 10 MG CAP PO SCH ×2 (08:15→20:20)
[2022-12-10] MEDS: CALCIUM CARBONATE 1250MG TAB PO SCH (08:15)
[2022-12-10] MEDS: MONTELUKAST SODIUM 10 MG TABLET PO SCH (08:15)
--- NOTE | 2022-12-10 08:51 | Hospitalist Progress Note ---
Date of Service December 10, 2022 Assessment & Plan (1) Fall: Plan: Katherine a 77-year-old female who presented after she tripped while walking landing on her left shoulder with severe pain 10/10 in her left arm. She was she tripped on the sidewalk, and has not anticoagulants. She did not hit her head. No fevers, chills, sweats, lightheadedness, dizziness, syncope, presyncope. Patient is not a good historian and does not know her meds by her comment list reconciled from the last note/pharmacy record. Patient reports she does live at home has never needed help before. Fall resulting in Left humeral fracture No syncope, lightheadedness, dizziness, or poor balance that led to fall. Was mechanical tripping over the sidewalk Outpatient orthopedic follow-up, nonweightbearing, currently in sling Tylenol for mild pain, OxyIR for moderate to severe pain Neurovascularly intact at time of admission and continues to be intact PT/OT and case management consulted for HHS/placement assistance - Both PT and OT recommending rehab - CM working on this [facility] will accept patient's insurance but they do not currently have a bed available. Yesterday patient was asking to go home, I spoke with daughter over the phone and she was planning on visiting her mother later and will discuss with her why going to a rehab for a short time is a safer option for patient. Today patient is pleasant and understands she needs some rehab to get stronger to be able to go home independently. - Pt to be made full admission while awaiting acceptance at a rehab facility (2) Closed left humeral fracture: Plan: - As above (3) Bipolar 1 disorder: Plan: Continue nortriptyline, quetiapine 300 mg p.o. nightly, duloxetine 30 mg p.o. twice daily (4) GERD without esophagitis: Plan: Convert esomeprazole to Protonix (5) Hypertension: Plan: Losartan and HCTZ on at home and are currently held due to hypotension - Restarted Amlodipine 5mg 12/09/22 BP today 132/74 - Continue to monitor BP (6) Hypothyroidism (acquired): Plan: Continue Synthroid 50mcg (7) Hypotension: Plan: Amlodipine, HCTZ and Losartan were on hold for hypotension Patient is asymptomatic. No SOB or dizziness Decreased narcotic pain regimen to every 6 hours instead of 4 hours for the Oxycodone Discontinued the Morphine sulfate Continue Tylenol q 8 hours as needed Continue to monitor vitals, repeat AM labs Restarted Amlodipine 5mg 12/09/22 BP today 132/74 (8) Elevated LFTs: Plan: - Has appeared to have slight elevation of Alkaline Phosphatase since 2019. - ALT slightly elevated which appears new. - Normal AST and bilirubin - Will repeat labs and check liver U/S, likely could be secondary to medications or hepatic steatosis also elevated AP possibly secondary to fx - LFTs continue to improve. Plan Full admit. CM working on referrals to rehab facility, [facility] patient but they do not currently have a bed. Above plan of care d/w Dr. Neely. Admission and Anticipated Discharge Date Admission Date: December 06, 2022 Subjective Patient is awke sitting up inn bed. She is pleasant and has no complaints today except she has not had a BM yet. She denies any abdominal pain or N/V but states it feels bloated. Review of Systems Review of Systems: All ROS are negative unless stated above or in the HPI Denies any chest pain, SOB, Cough, congestion, abdominal pain or N/V Gastrointestinal: + constipation; no nausea, no vomiting, no diarrhea/loose stools and no blood in stools Genitourinary: no dysuria, no difficulty urinating and no urinary frequency Physical Exam Constitutional: WD/WN, vitals as above Neck: trachea midline, no thyromegaly Respiratory: normal respiratory effort, lungs clear to auscultation Cardiovascular: Rate/Rhythm: regular rate and regular rhythm Gastrointestinal (Abdomen): Inspection/Auscultation: abdomen normal to inspection and normal bowel sounds Skin: no rashes, warm and dry Psychiatric: A+Ox3, euthymic affect Results & Data Results & Data ([facility]) Vital Signs (Past 12 Hours) Vital Signs Temp Pulse Pulse Resp BP Pulse Ox O2 Del Method 12/10/22 07:03 36.4 C L 76 18 132/74 92 Room Air 12/09/22 22:29 37.1 C 84 18 143/64 H 92 Room Air Laboratory Results Abnormal lab results 12/10/22 12/10/22 Range/Units 05:09 05:09 RBC 3.27 L (4.20-5.40) M/uL Hgb 10.0 L (12.0-16.0) g/dl Hct 30.4 L (37.0-47.0) % BUN/Creatinine Ratio 27.8 H (10-20) Glucose 100 H (70-99(Fasting)) mg/dl ALT 65 H (7-52) U/L Alkaline Phosphatase 128 H (34-104) U/L Diagnostic Findings Abdomen Ultrasound 12/10/22 00:00 ABDOMINAL ULTRASOUND, RIGHT UPPER QUADRANT HISTORY: RUQ - elevated LFT. COMPARISON: Right upper quadrant ultrasound and CT of the abdomen July 18, 2013. FINDINGS: Liver morphology is normal. There is a 2.4 cm lateral segment hepatic cyst. There is no biliary ductal dilatation status post cholecystectomy. Common bile duct measures 4 mm in caliber. Pancreatic body is normal. Head and tail are obscured. There is no right hydronephrosis. IMPRESSION: No significant abnormality within the right upper quadrant status post cholecystectomy. ACT 112: Negative or not required by law. Electronically signed by: Yang Medina M.D. 12/10/2022 7:35 AM PG Care Time/CCT Total # of Minutes Spent Total Time Spent with Patient: Total time spent is greater than 50% in coordination of care (as documented) at patient's floor/unit and/or counseling patient: Coding Level of Care Code 10599 SUB INP/OBS CARE 12/06MIN Diagnoses Fall W19.XXXA Closed left humeral fracture S42.302A Bipolar 1 disorder F31.9 GERD without esophagitis K21.9 Hypertension I10 Hypothyroidism (acquired) E03.9 Hypotension I95.9 Elevated LFTs R79.89
[2022-12-10] MEDS: amLODIPine BESYLATE 5 MG TAB PO SCH (09:03)
[2022-12-10] MEDS ORDERED: bisacodyL 10 MG SUPP PR STA (13:03)
[2022-12-10] MEDS: oxyCODONE HCL IR 5 MG TAB (IMMEDIATE RELEASE) PO PRN (20:19)
[2022-12-10] MEDS: ATORVASTATIN 20 MG TAB PO SCH (20:20)
[2022-12-10] MEDS: QUEtiapine FUMARATE 300 MG TABLET PO SCH (22:55)
[2022-12-11] MEDS: LEVOTHYROXINE SODIUM 50 MCG TABLET PO SCH (05:20)
[2022-12-11] MEDS: CALCIUM CARBONATE 1250MG TAB PO SCH (07:53)
[2022-12-11] MEDS: NORTRIPTYLINE HCL 10 MG CAP PO SCH ×2 (07:53→20:40)
[2022-12-11] MEDS: POTASSIUM CHLORIDE CRTAB 20 MEQ TABCR PO SCH (07:53)
[2022-12-11] MEDS: MONTELUKAST SODIUM 10 MG TABLET PO SCH (07:53)
[2022-12-11] MEDS: amLODIPine BESYLATE 5 MG TAB PO SCH (07:53)
[2022-12-11] MEDS: DULoxetine HCL 30 MG CAP PO SCH ×2 (07:53→20:40)
[2022-12-11] MEDS: POLYETHYLENE (MIRALAX) 17 GM PACK PO SCH (07:53)
[2022-12-11] MEDS: oxyCODONE HCL IR 5 MG TAB (IMMEDIATE RELEASE) PO PRN ×2 (10:14→19:36)
--- NOTE | 2022-12-11 12:05 | Hospitalist Progress Note ---
Date of Service December 11, 2022 Assessment & Plan (1) Fall: Plan: Katherine a 77-year-old female who presented after she tripped while walking landing on her left shoulder with severe pain 10/10 in her left arm. She was she tripped on the sidewalk, and has not anticoagulants. She did not hit her head. No fevers, chills, sweats, lightheadedness, dizziness, syncope, presyncope. Patient is not a good historian and does not know her meds by her comment list reconciled from the last note/pharmacy record. Patient reports she does live at home has never needed help before. Fall resulting in Left humeral fracture No syncope, lightheadedness, dizziness, or poor balance that led to fall. Was mechanical tripping over the sidewalk Outpatient orthopedic follow-up, nonweightbearing, currently in sling Tylenol for mild pain, OxyIR for moderate to severe pain Neurovascularly intact at time of admission and continues to be intact PT/OT and case management consulted for HHS/placement assistance - Both PT and OT recommending rehab - working on this [facility] has a bed and is able to accept patient, pending insurance authorization. Awaiting updated PT/OT notes - Pt to be made full admission while awaiting acceptance at a rehab facility (2) Closed left humeral fracture: Plan: - As above (3) Bipolar 1 disorder: Plan: Continue nortriptyline, quetiapine 300 mg p.o. nightly, duloxetine 30 mg p.o. twice daily (4) GERD without esophagitis: Plan: Convert esomeprazole to Protonix (5) Hypertension: Plan: Losartan and HCTZ on at home and are currently held due to hypotension - Restarted Amlodipine 5mg 12/09/22 BP today 132/74 - Continue to monitor BP (6) Hypothyroidism (acquired): Plan: Continue Synthroid 50mcg (7) Hypotension: Plan: Amlodipine, HCTZ and Losartan were on hold for hypotension Patient is asymptomatic. No SOB or dizziness Decreased narcotic pain regimen to every 6 hours instead of 4 hours for the Oxycodone Discontinued the Morphine sulfate Continue Tylenol q 8 hours as needed Continue to monitor vitals, repeat AM labs Restarted Amlodipine 5mg 12/09/22 BP today 134/75 Restart Losartan today (8) Elevated LFTs: Plan: - Has appeared to have slight elevation of Alkaline Phosphatase since 2019. - ALT slightly elevated which appears new. - Normal AST and bilirubin - Will repeat labs and check liver U/S, likely could be secondary to medications or hepatic steatosis also elevated AP possibly secondary to fx - LFTs continue to improve. Plan Full admit. CM working on referrals to rehab facility, [facility] will [facility] patient but they do not currently have a bed. Above plan of care d/w Dr. Neely. Admission and Anticipated Discharge Date Admission Date: December 06, 2022 Subjective Patient is awake sitting up in bed. She denies any abdominal pain or N/V. She states she did have BMs yesterday and feels much better since moving her bowels. [facility] able [facility] accept patient and CM is awaiting updated PT and OT notes. Review of Systems Review of Systems: All ROS are negative unless stated above or in the HPI Denies any chest pain, SOB, Cough, congestion, abdominal pain or N/V Gastrointestinal: + constipation; no nausea, no vomiting, no diarrhea/loose stools and no blood in stools Genitourinary: no dysuria, no difficulty urinating and no urinary frequency Physical Exam Constitutional: WD/WN, vitals as above Neck: trachea midline, no thyromegaly Respiratory: normal respiratory effort, lungs clear to auscultation Cardiovascular: Rate/Rhythm: regular rate and regular rhythm Gastrointestinal (Abdomen): Inspection/Auscultation: abdomen normal to inspection and normal bowel sounds Musculoskeletal: left arm in sling intact 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, 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 sensation Skin: no rashes, warm and dry Psychiatric: A+Ox3, euthymic affect Results & Data Results & Data ([facility]) Vital Signs (Past 12 Hours) Vital Signs Temp Pulse Resp BP Pulse Ox O2 Del Method 12/11/22 07:59 94 Room Air 12/11/22 07:42 36.7 C 71 16 134/75 91 Room Air PG Care Time/CCT Total # of Minutes Spent Total Time Spent with Patient: Total time spent is greater than 50% in coordination of care (as documented) at patient's floor/unit and/or counseling patient: Coding Level of Care Code 28381 SUB INP/OBS CARE 12/06MIN Diagnoses Fall W19.XXXA Closed left humeral fracture S42.302A Bipolar 1 disorder F31.9 GERD without esophagitis K21.9 Hypertension I10 Hypothyroidism (acquired) E03.9 Hypotension I95.9 Elevated LFTs R79.89
[2022-12-11] MEDS: ATORVASTATIN 20 MG TAB PO SCH (20:40)
[2022-12-11] MEDS: QUEtiapine FUMARATE 300 MG TABLET PO SCH (22:52)
[2022-12-12] MEDS: LEVOTHYROXINE SODIUM 50 MCG TABLET PO SCH (05:59)
[2022-12-12] MEDS: amLODIPine BESYLATE 5 MG TAB PO SCH (08:26)
[2022-12-12] MEDS: DULoxetine HCL 30 MG CAP PO SCH (08:26)
[2022-12-12] MEDS: CALCIUM CARBONATE 1250MG TAB PO SCH (08:26)
[2022-12-12] MEDS: NORTRIPTYLINE HCL 10 MG CAP PO SCH (08:26)
[2022-12-12] MEDS: MONTELUKAST SODIUM 10 MG TABLET PO SCH (08:27)
[2022-12-12] MEDS: POLYETHYLENE (MIRALAX) 17 GM PACK PO SCH (08:27)
[2022-12-12] MEDS: LOSARTAN POTASSIUM 50 MG TAB PO SCH (08:27)
[2022-12-12] MEDS: POTASSIUM CHLORIDE CRTAB 20 MEQ TABCR PO SCH (08:27)
[2022-12-12] MEDS: oxyCODONE HCL IR 5 MG TAB (IMMEDIATE RELEASE) PO PRN (09:28)
[2022-12-12] MEDS ORDERED: guaiFENesin 600 MG TABCR PO PRN (09:30)
--- NOTE | 2022-12-12 11:50 | Discharge Summary ---
Date of Service December 12, 2022 Admission HPI Per Admitting Provider Katherine a 77-year-old female who presented after she tripped while walking landing on her left shoulder with severe pain 10/10 in her left arm. She was she tripped on the sidewalk, and has not anticoagulants. She did not hit her head. No fevers, chills, sweats, lightheadedness, dizziness, syncope, presyncope. Patient is not a good historian and does not know her meds by her comment list reconciled from the last note/pharmacy record. Patient reports she does live at home has never needed help before. Discussed with ER PA, expressed concern that patient is not able to operate independently at home and with her fall has limited ability to form IADLs. Recommended for case management consultation for potential home services versus PT/OT and temporary placement especially given fall with left arm fracture. Patient denies tobacco /marijuana use, rare social alcohol use. Medical History: Reviewed Medications: Reviewed Surgical History: Reviewed Allergies: Reviewed Social History: Reviewed Code Status: Full code Admission Exam Per Admitting Provider General: A&Ox3. NAD. Cooperative. HEENT: Atraumatic, normocephalic. Vision and hearing grossly intact Pulm: CTAB A&P. -wheezes, -rales, -rhonchi. Symmetrical chest rise. No increased work of breathing. No respiratory distress. Cardiac: RRR, -mrg. Radial pulses intact and symmetrical. Abdominal: Nontender, nondistended, soft. BS present. Ext: Warm, dry. Left hand in sling. Estimator Paperboard Boxes strength, finger flexion/extension intact. Soft touch intact in fingertips bilaterally on right and left hand. Radial pulse intact on right and left hand. Principal Diagnosis left humerus fracture Discharge Exam Constitutional WD/WN, vitals as above Neck trachea midline, no thyromegaly Respiratory normal respiratory effort, lungs clear to auscultation Cardiovascular Rate/Rhythm: regular rate and regular rhythm Gastrointestinal (Abdomen) Inspection/Auscultation: abdomen normal to inspection and normal bowel sounds Skin no rashes, warm and dry Psychiatric A+Ox3, euthymic affect Discharge Data Allergies Allergy/AdvReac Type Severity Reaction Status Date / Time lithium Allergy Unknown syncope Verified 04/14/22 10:51 cheese AdvReac Unknown CONSTIPATIO Verified 04/14/22 10:51 N nut - unspecified AdvReac Unknown CONSTIPATIO Verified 04/14/22 10:51 N milnacipran [From Savella] AdvReac Verified 04/14/22 10:51 Dust Allergy Unknown STUFFY NOSE Uncoded 04/14/22 10:51 Consultations 12/04/22 17:50 ED Decision to Admit Stat Ordered Studies 12/04/22 14:20 CT cervical spine wo con Stat CT head/brain wo con Stat IMPRESSION: No acute intracranial abnormality or calvarial fracture. IMPRESSION: No fractures within the cervical spine. Xray Left Humerus IMPRESSION: 1. Acute comminuted proximal humeral fracture without significant displacement. 2. No dislocation. 12/10/22 00:00 US abdomen limited Routine IMPRESSION: No significant abnormality within the right upper quadrant status post cholecystectomy. Hospital Course (1) Fall: Katherine a 77-year-old female who presented after she tripped while walking landing on her left shoulder with severe pain 10/10 in her left arm. She was she tripped on the sidewalk, and has not anticoagulants. She did not hit her head. No fevers, chills, sweats, lightheadedness, dizziness, syncope, presyncope. Patient is not a good historian and does not know her meds by her comment list reconciled from the last note/pharmacy record. Patient reports she does live at home has never needed help before. Fall resulting in Left humeral fracture No syncope, lightheadedness, dizziness, or poor balance that led to fall. Was mechanical tripping over the sidewalk Outpatient orthopedic follow-up, nonweightbearing, currently in sling Tylenol for mild pain, OxyIR for moderate to severe pain Neurovascularly intact at time of admission and continues to be intact PT/OT and case management consulted for HHS/placement assistance - Both PT and OT recommending re[facility] a bed and is able to accept patient (2) Closed left humeral fracture: - As above (3) Bipolar 1 disorder: Continue nortriptyline, quetiapine 300 mg p.o. nightly, duloxetine 30 mg p.o. twice daily (4) GERD without esophagitis: Convert esomeprazole to Protonix (5) Hypertension: Losartan and HCTZ on at home and are currently held due to hypotension - Restarted Amlodipine 5mg 12/09/22 BP today 148/75 - Continue to monitor BP (6) Hypothyroidism (acquired): Continue Synthroid 50mcg (7) Hypotension: Amlodipine, HCTZ and Losartan were on hold for hypotension Patient was asymptomatic. No SOB or dizziness Decreased narcotic pain regimen to every 6 hours instead of 4 hours for the Oxycodone Discontinued the Morphine sulfate Continue Tylenol q 8 hours as needed Continue to monitor vitals, repeat AM labs Restarted Amlodipine 5mg 12/09/22 BP today 134/75 Restart Losartan 12/11/22 (8) Elevated LFTs: - Has appeared to have slight elevation of Alkaline Phosphatase since 2019. - ALT slightly elevated which appears new. - Normal AST and bilirubin - likely could be secondary to medications or hepatic steatosis also elevated AP possibly secondary to fx - U/S RUQ - no significant abnormality - LFTs continue to improve. Plan Full admit. CM working on referrals to rehab facility, [facility] patient but [facility] do not currently have a bed. Above plan of care d/w Dr. Neely. Total Time Total Time Spent Total Time Spent (In Minutes): 35 Discharge Plan Discharge Items Patient Disposition: Transfer Half-Way Fac Reason For Visit: HUMERAL FRACTURE, PLACEMENT Discharge Diagnosis: Left Humeral fracture Condition on Discharge: Good Activity: Per Instructions section Lifting: None Exercise/Sports: Gradually increase as tolerated Non-emergency contact: Primary Care Provider Call non-emergency contact if: you have any medication questions Follow-up/Referrals: PCP,NO [Primary Care Provider] - Diet: Heart Healthy Addtl Attending Provider Instructions: You were admitted after sustaining a fall and suffering a fracture of your left upper arm. You were evaluated and your arm was placed in a sling. You continued to have Physical and occupational therapy and it was recommended for your to have some in patient rehab prior to returning home. You have high blood pressure and are treated with medication. You had some increased fatigue and low blood pressures and your medications were held for a few days. Your blood pressure came backup and your medications were restarted one by one. You had so me mild elevations of your liver blood tests. An ultrasound of your liver revealed no abnormalities and your tests improved. You should follow up with your family doctor and also with orthopedist in [address] [facility] Pending Studies at Discharge: No Stand-Alone Forms: My [facility] Skilled Items Patient informed of condition?: Yes DNR: No Discharge Level of Care: Acute rehab Communicable Disease: No Discharge Prognosis: Stable Lines: None Urinary Catheter: No Medications and DC Order Prescriptions: New oxycodone 5 mg Tablet 5 mg PO Q8H PRN (Reason: pain) Qty: 7 0RF polyethylene glycol 3350 [Miralax] 17 gram Powder In Packet 17 g PO DAILY Qty: 14 0RF Continued losartan 100 mg tablet 100 mg PO DAILY Qty: 90 3RF quetiapine [Seroquel] 300 mg tablet 300 mg PO HS Qty: 90 0RF duloxetine 30 mg capsule,delayed release(DR/EC) 30 mg PO BID Qty: 180 0RF potassium chloride 20 mEq tablet extended release 40 meq PO DAILY hydrochlorothiazide 12.5 mg tablet 12.5 mg PO DAILY atorvastatin [Lipitor] 20 mg tablet 20 mg PO QPM Qty: 90 1RF alendronate [Fosamax] 70 mg tablet 70 mg PO WK 90 Days Qty: 12 1RF multivitamin Tablet 1 tab PO DAILY cyanocobalamin (vitamin B-12) [Vitamin B-12] 1,000 mcg Tablet 1,000 mcg PO DAILY amlodipine [Norvasc] 5 mg tablet 5 mg PO DAILY calcium carbonate [Calcium 500] 500 mg calcium (1,250 mg) Tablet 500 mg PO DAILY levothyroxine 50 mcg tablet 50 mcg PO DAILY nortriptyline [Pamelor] 10 mg capsule 10 mg PO TID esomeprazole magnesium [Nexium] 40 mg capsule,delayed release(DR/EC) 40 mg PO DAILY montelukast [Singulair] 10 mg tablet 10 mg PO DAILY Discontinued furosemide [Lasix] 40 mg tablet 40 mg PO DAILY Discharge Orders: Discharge Order (Routine); Ordered 12/12/22 Ordered By: Tamara Batres Admission Data Admit Date/Time: 12/06/22 14:00 Attending Provider: Lamin Neely Admit Provider: Eliseo Rose Primary Care Provider: PCP,NO Other Providers: Eliseo Rose Other Interventions: Discharge Summary Assessment (RN) Last Done: 12/12/22 13:18 Coding Level of Care Code HOSP INP/OBS DISCH >30 MIN Diagnoses Fall W19.XXXA Closed left humeral fracture S42.302A Bipolar 1 disorder F31.9 GERD without esophagitis K21.9 Hypertension I10 Hypothyroidism (acquired) E03.9 Hypotension I95.9 Elevated LFTs R79.89 Time Spent (min) 35
== END 2022-12-12 14:15 ==
LOC: ED 13:47 → 3N 13:47 → SUATTDRO 17:32 → 3N 20:08 → SUATTDRO 12-06 14:00

== ENCOUNTER 2023-01-15 13:15 | Observation (INO) ==
--- NOTE | 2023-01-15 14:00 | Emergency Department Note ---
Impression & Plan Fall from standing, Acute pain of right hip, Generalized weakness, Ambulatory dysfunction, Rhabdomyolysis, SASCHA (acute kidney injury) ED Provider Note HISTORY OF PRESENT ILLNESS: Patient is a 77-year-old female presenting with hip pain after a fall from standing. Patient reports that she was putting her groceries away 2 days ago when she suddenly ended up on the floor. She is unsure if she passed out or if she tripped and fell. Reports that she landed on her buttocks and was unable to get up on her own. She reports she has been on the ground for the last 2 days. She was able to drag herself to the bathroom where she was able to pull an emergency cord to call 911. On EMS arrival, she was found on the ground. Patient reports that when she fell she struck her head. Denies loss of consciousness. She is not on any anticoagulation. Reports she was unable to get up off the ground secondary to weakness. Denies any numbness or tingling in her extremities. She recently broke her left humerus and her arm is in a sling. Denies any chest pain, shortness of breath or lightheadedness prior to the fall 2 days ago. ROS: as above PHYSICAL EXAM: Constitutional: Patient appears in no acute distress. HENT: Head: Normocephalic and atraumatic. Eyes: EOMI, PERRL Mouth/Throat: Mucous membranes moist. Neck: Trachea midline. Neck supple. No midline cervical spine tenderness to palpation. Cardiovascular: RRR, No murmurs, rubs or gallops. Intact distal pulses. Pulmonary/Chest: No respiratory distress. Breath sounds clear and equal bilaterally. No wheezes or rales. No chest wall tenderness to palpation. Abdominal: BS +. Abdomen soft, no tenderness, rebound or guarding. Back: No midline spinal tenderness, no paraspinal tenderness, no CVA tenderness. Musculoskeletal: No edema or deformity noted. Tenderness to palpation of the right lateral hip. No obvious deformity to the right leg. No shortening or external rotation of the leg. Left upper extremity is in a sling. Skin: Warm and dry. No rash, erythema, pallor or cyanosis Psychiatric: Appropriate mood and affect for situation. Neurological: Alert and keenly responsive. CN II-XII grossly intact, moving all extremities equally and fully. MDM: - Vitals signs stable - History obtained via patient. Patient presents with hip pain and posterior headache after fall from standing. Patient fell onto the ground and was unable to get up for the last 2 days. He denies any chest pain or shortness of breath prior to the fall. She is not on any anticoagulation. Reports she fell and no panfilo on her buttocks and then struck the back of her head. Denies loss of consciousness. She states has been too weak to get up off the ground by herself and had to call 911. - Chronic conditions affecting care: HTN; HLD; hypothyroidism; DVT - Differential diagnoses include, but are not limited to: ACS; rhabdomyolysis; fracture; dislocation - Order placed for continuous cardiac monitoring. At this time, monitor showed rate of 90 bpm with normal sinus rhythm, per my interpretation. - External medical records reviewed. EMS run sheet reviewed. Patient was vitally stable in route. - EKG reviewed by myself showed normal sinus rhythm. Rate 91 bpm. No acute ischemic changes. QTc 420. Incomplete RBBB present. Appears similar to EKG from 01/29/2017. - Laboratory workup interpreted by myself showed leukocytosis (WBC 16.88); stable electrolytes; SASCHA (Cr 1.35 - was 0.79 two months ago); elevated CK (479); normal troponin - Considered CT abdomen/pelvis, but patient does not have reproducible abdominal pain and no suspicious bruising present. - CXR negative for acute cardiopulmonary pathology, per my interpretation. - Xray pelvis negative for fracture or dislocation. - CT head wo contrast negative for acute intracranial pathology. - Patient given 1L NS in ER. - Patient reports global weakness and has no focal deficits on examination. No infectious symptoms to account for her weakness. May be secondary to deconditioning. - Discussion was had with social media executive about patient's case and need for admission. - Hospitalist, Dr. Rose, consulted for admission. or - [facility] to [facility] for further evaluation and management. ASSESSMENT AND PLAN: Diagnosis: generalized weakness; ambulatory dysfunction; rhabdomyolysis; right hip pain; SASCHA; fall from standing Plan: admit Past Med/Surg History Medical History (Updated 01/15/23 @ 16:22 by Kylie Fountain MD) Anxiety Bipolar 1 disorder DVT (deep venous thrombosis) Elevated LFTs Fall Fibromyalgia GERD without esophagitis Hyperglycemia Hyperlipidemia Hypertension Hypotension Hypothyroidism (acquired) Insomnia Left knee DJD Osteoarthritis Surgical History S/P wisdom tooth extraction Status post right partial knee replacement Family History Grandmother Breast cancer Mother Myocardial infarction Denies family history of Ovarian cancer Prostate cancer Colorectal cancer Social History Smoking Status: Never smoker Second Hand Exposure: Yes; Hx Alcohol Use: Yes Alcohol type: wine Alcohol Intake Frequency Comment: occasionally Hx Substance Use: No Preferred Language: Ukrainian Communication Ability: Effective Visual Impairment: No Limitations Hearing Ability: Normal Cartographic Drafter Required: No Beliefs That Will Affect Care: None marital status: / Current Living Situation: Alone Current Living Situation Comment: lives alone in a intermediate apartment in [place]. 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 Feels Safe at Home: Yes Childhood Exposure to Second-Hand Smoke: No caffeine: Yes (coffee) Dental Care, Regularly: No Physical Activity Frequency: Daily Physical Activity Frequency Comment: walking approx 15-20min a day Seatbelt Use: always Sunscreen Use: No (states she is not out in the sun much ) Assistive Devices: Walker Allergies Allergies Allergy/AdvReac Type Severity Reaction Status Date / Time lithium Allergy Unknown syncope Verified 04/14/22 10:51 cheese AdvReac Unknown CONSTIPATIO Verified 04/14/22 10:51 N nut - unspecified AdvReac Unknown CONSTIPATIO Verified 04/14/22 10:51 N milnacipran [From Savella] AdvReac Verified 04/14/22 10:51 Dust Allergy Unknown STUFFY NOSE Uncoded 04/14/22 10:51 Home Meds Home Medications Medication Instructions Recorded Confirmed amlodipine 5 mg tablet (Norvasc) 5 mg PO QPM 06/04/19 01/15/23 cyanocobalamin (vitamin B-12) 1,000 mcg PO DAILY 06/04/19 01/15/23 1,000 mcg tablet (Vitamin B-12) esomeprazole magnesium 40 mg 40 mg PO DAILY 06/04/19 01/15/23 capsule,delayed release (Nexium) levothyroxine 50 mcg tablet 50 mcg PO DAILY 06/04/19 01/15/23 montelukast 10 mg tablet 10 mg PO DAILY 06/04/19 01/15/23 (Singulair) multivitamin 1 tab PO DAILY 06/04/19 01/15/23 nortriptyline 10 mg capsule 10 mg PO TID 06/04/19 01/15/23 (Pamelor) hydrochlorothiazide 12.5 mg tablet 12.5 mg PO DAILY 04/14/22 01/15/23 potassium chloride 20 mEq 40 meq PO DAILY 04/14/22 01/15/23 tablet,extended release calcium carbonate 500 mg calcium 500 mg PO DAILY 01/15/23 01/15/23 (1,250 mg) tablet furosemide 40 mg tablet 40 mg PO DAILY 01/15/23 01/15/23 meclizine 25 mg tablet 25 mg PO TID PRN Dizziness 01/15/23 01/15/23 oxycodone-acetaminophen 5 mg-325 1 tab PO .EVERY 4-6 HOURS PRN Pain 01/15/23 01/15/23 mg tablet (Percocet) Previous Rx's Medication Instructions Recorded losartan 100 mg tablet 100 mg PO DAILY #90 tabs 06/09/19 alendronate 70 mg tablet (Fosamax) 70 mg PO WK 3 months #12 tabs 02/20/20 atorvastatin 20 mg tablet (Lipitor) 20 mg PO QPM #90 tabs 02/20/20 quetiapine 300 mg tablet (Seroquel) 300 mg PO HS #90 tabs 11/24/21 duloxetine 30 mg capsule,delayed 30 mg PO BID #180 caps 02/16/22 release polyethylene glycol 3350 17 gram 17 g PO DAILY #14 ea 12/12/22 oral powder packet (Miralax) Results & Data (ED) Vital Signs Vital Signs - 24 hr 01/15/23 13:25 Temperature 36.8 C Temperature Source Oral Pulse Rate 90 Respiratory Rate 16 Respiratory Effort / Characteristics Non-Labored Respiratory Depth Normal Respiratory Pattern Regular Blood Pressure 115/76 Blood Pressure Mean 89 Blood Pressure Position Lying Pulse Oximetry 98 Oxygen Delivery Method Room Air Sepsis Recent Fever Within 48 Hours No Sepsis New/Unexplained Change in Mental Status N/A Sepsis Action Taken by Nursing No Action Required Laboratory Data 01/15/23 14:41 01/15/23 14:41 Lab Results 03/06/23 03/06/23 Range/Units 14:41 14:41 WBC 16.88 H (4.8-10.8) K/ul RBC 4.14 L (4.20-5.40) M/uL Hgb 12.5 (12.0-16.0) g/dl Hct 38.1 (37.0-47.0) % MCV 92.0 (80.0-100.0) fL MCH 30.2 (25.0-34.0) pg MCHC 32.8 (32.0-36.0) g/dL RDW Std Deviation 45.6 (36.4-46.3) fL RDW Coeff of Kandi 13.4 (11.5-14.5) % Plt Count 267 (130-400) K/uL MPV 12.4 (9.4-12.4) fL Immature Gran % (Auto) 0.4 % Neut % (Auto) 84.4 % Lymph % (Auto) 8.1 % [place] % (Auto) 6.3 % Eos % (Auto) 0.6 % Baso % (Auto) 0.2 % Neut # (Auto) 14.25 H (1.40-6.50) K/uL Lymph # (Auto) 1.37 (1.2-3.4) K/uL [place] # (Auto) 1.06 H (0.11-0.59) K/uL Eos # (Auto) 0.10 (0-0.50) K/uL Baso # (Auto) 0.03 (0-0.2) K/uL Immature Gran # (Auto) 0.07 (0.01-0.20) K/uL Sodium 136 (136-145) mmol/L Potassium 4.8 (3.5-5.1) mmol/L Chloride 102 (98-107) mmol/L Carbon Dioxide 25 (21-32) mmol/L Anion Gap 9 (3-11) BUN 25 H (6-23) mg/dl Creatinine 1.35 H (0.6-1.2) mg/dl Est Cr Clr Drug Dosing 39.7 ml/min Est GFR ( Amer) 44.4 ml/min Est GFR (Non-Af Amer) 38.3 ml/min BUN/Creatinine Ratio 18.5 (10-20) Glucose 109 H (70-99(Fasting)) mg/dl Calcium 9.6 (8.5-10.1) mg/dl Total Bilirubin 0.7 (0.2-1.0) mg/dl AST 36 (13-39) U/L ALT 24 (7-52) U/L Alkaline Phosphatase 113 H (34-104) U/L Total Creatine Kinase 479 H (26-192) U/L Troponin I High Sens 7.1 (0-14) pg/ml Total Protein 7.3 (6.0-8.3) gm/dl Albumin 4.3 (3.4-5.0) gm/dl Globulin 3.0 (2.5-4.0) gm/dl Albumin/Globulin Ratio 1.4 (0.9-2) Imaging Data Radiologist's Impression: Chest X-Ray 01/15/23 13:57 XR chest 1V portable CLINICAL HISTORY: syncope TECHNIQUE: Single frontal radiograph of the chest was obtained. Comparison: Comparison is made to chest radiograph 04/24/2014 FINDINGS: No lines and tubes are seen. Cardiomegaly is noted. Reticular interstitial opacities are seen. No evidence of pleural effusion or pneumothorax. IMPRESSION: No acute chest disease. ACT 112: Negative or not required by law. Electronically signed by: Karl Giordano M.D. 01/15/2023 3:18 PM Pelvis X-Ray 01/15/23 13:57 XR pelvis 1-2V routine HISTORY: 77 years-old Female fall from standing acute pelvic pain status post fall COMPARISON: Left femur radiographs 06/04/2019 TECHNIQUE: AP view of the pelvis FINDINGS: Moderate osteoarthritis of the hips. No acute fracture, dislocation or avascular necrosis identified. Unremarkable soft tissues. IMPRESSION: Moderate osteoarthritis without acute fracture or dislocation identified. ACT 112: Negative or not required by law. The above report was generated using voice recognition software. It may contain grammatical, syntax or spelling errors. Electronically signed by: Tavo Dockery M.D. 01/15/2023 3:[address] 01/15/23 14:00 CT SCAN OF THE BRAIN WITHOUT IV CONTRAST CLINICAL HISTORY: Fall COMPARISON STUDY: CT of the brain dated 12/04/2022. TECHNIQUE: Unenhanced axial CT scan of the brain is performed from the vertex to the skull base. A dose lowering technique was utilized adhering to the principles of ALARA. CT DOSE: 690.05 mGycm FINDINGS: Brain parenchyma: There is age-related involutional change noting mild subcortical and periventricular microangiopathic disease. There is no hemorrhage, mass effect, or evidence of acute territorial ischemia by CT criteria. A 12 mm calcified extra-axial nodule along the high left parietal convexity is unchanged and typical for a meningioma. There is no associated mass effect. Hdez-white matter differentiation is preserved. No extra-axial fluid collection is seen. Ventricles, sulci, cisterns: Prominent secondary to involutional change. Intracranial vasculature: There is atherosclerotic calcification of the ca vernous carotid arteries. Calvarium: The skeletal structures are osteopenic. No depressed calvarial fracture is seen. Sinuses and mastoids: The visualized paranasal sinuses are clear. The mastoid air cells are well pneumatized. Orbits: The bony orbits are grossly intact. There is evidence of bilateral ocular lens surgery. IMPRESSION: There is no hemorrhage, mass effect, or evidence of acute territorial ischemia by CT criteria. ACT 112: Negative or not required by law. Electronically signed by: Robert Ramon M.D. 01/15/2023 2:20 PM Discharge Plan Visit Data Chief Complaint: Fall ED Provider: Kylie Fountain Discharge Problem: Fall from standing, Acute pain of right hip, Generalized weakness, Ambulatory dysfunction, Rhabdomyolysis, SASCHA (acute kidney injury) Patient Disposition: Admitted As Inpatient Forms Stand Alone Forms: My [facility] Prescriptions Prescriptions: No Action losartan 100 mg tablet 100 mg PO DAILY Qty: 90 3RF quetiapine [Seroquel] 300 mg tablet 300 mg PO HS Qty: 90 0RF duloxetine 30 mg capsule,delayed release(DR/EC) 30 mg PO BID Qty: 180 0RF potassium chloride 20 mEq tablet extended release 40 meq PO DAILY hydrochlorothiazide 12.5 mg tablet 12.5 mg PO DAILY atorvastatin [Lipitor] 20 mg tablet 20 mg PO QPM Qty: 90 1RF alendronate [Fosamax] 70 mg tablet 70 mg PO WK 90 Days Qty: 12 1RF multivitamin Tablet 1 tab PO DAILY cyanocobalamin (vitamin B-12) [Vitamin B-12] 1,000 mcg Tablet 1,000 mcg PO DAILY amlodipine [Norvasc] 5 mg tablet 5 mg PO QPM levothyroxine 50 mcg tablet 50 mcg PO DAILY nortriptyline [Pamelor] 10 mg capsule 10 mg PO TID esomeprazole magnesium [Nexium] 40 mg capsule,delayed release(DR/EC) 40 mg PO DAILY montelukast [Singulair] 10 mg tablet 10 mg PO DAILY polyethylene glycol 3350 [Miralax] 17 gram Powder In Packet 17 g PO DAILY Qty: 14 0RF oxycodone-acetaminophen [Percocet] 5-325 mg tablet 1 tab PO .EVERY 4-6 HOURS PRN (Reason: Pain) meclizine 25 mg tablet 25 mg PO TID PRN (Reason: Dizziness) furosemide 40 mg tablet 40 mg PO DAILY calcium carbonate [Calcium 500] 500 mg calcium (1,250 mg) Tablet 500 mg PO DAILY Referrals Referrals: PCP,NO [Primary Care Provider] -
--- NOTE | 2023-01-15 14:21 | CT Scan Report ---
CT SCAN OF THE BRAIN WITHOUT IV CONTRAST CLINICAL HISTORY: Fall COMPARISON STUDY: CT of the brain dated 12/04/2022. TECHNIQUE: Unenhanced axial CT scan of the brain is performed from the vertex to the skull base. A do se lowering technique was utilized adhering to the principles of ALARA. CT DOSE: 690.05 mGycm FINDINGS: Brain parenchyma: There is age-related involutional change noting mild subcortical and periventricula r microangiopathic disease. There is no hemorrhage, mass effect, or evidence of acute territorial isc hemia by CT criteria. A 12 mm calcified extra-axial nodule along the high left parietal convexity is unchanged and typical for a meningioma. There is no associated mass effect. Hdez-white matter differe ntiation is preserved. No extra-axial fluid collection is seen. Ventricles, sulci, cisterns: Prominent secondary to involutional change. Intracranial vasculature: There is atherosclerotic calcification of the cavernous carotid arteries. Calvarium: The skeletal structures are osteopenic. No depressed calvarial fracture is seen. Sinuses and mastoids: The visualized paranasal sinuses are clear. The mastoid air cells are well pneu matized. Orbits: The bony orbits are grossly intact. There is evidence of bilateral ocular lens surgery. IMPRESSION: There is no hemorrhage, mass effect, or evidence of acute territorial ischemia by CT timothy thayer. ACT 112: Negative or not required by law. Electronically signed by: Robert Ramon M.D. 01/15/2023 2:20 PM
[2023-01-15 15:07] LABS: Basophils # (auto) 0.03 K/uL (0-0.2); Basophils % (auto) 0.2 %; Eosinophils % (auto) 0.6 %; Hematocrit (blood only) 38.1 % (37.0-47.0); Hemoglobin 12.5 g/dl (12.0-16.0); Immature Granulocytes # (auto) 0.07 K/uL (0.01-0.20); Immature Granulocytes % (auto) 0.4 %; Lymphocytes # (auto) 1.37 K/uL (1.2-3.4); Lymphocytes % (auto) 8.1 %; Mean Corpuscular Hemoglobin 30.2 pg (25.0-34.0); Mean Corpuscular Hgb Conc 32.8 g/dL (32.0-36.0); Mean Platelet Volume 12.4 fL (9.4-12.4); Monocytes # (auto) 1.06 K/uL (0.11-0.59); Monocytes % (auto) 6.3 %; Neutrophils # (auto) 14.25 K/uL (1.40-6.50); Neutrophils % (auto) 84.4 %; Platelet Count 267 K/uL (130-400); RDW Coefficient of Variation 13.4 % (11.5-14.5); RDW Standard Deviation 45.6 fL (36.4-46.3); Red Blood Count 4.14 M/uL (4.20-5.40); White Blood Count 16.88 K/ul (4.8-10.8)
--- NOTE | 2023-01-15 15:19 | XRay Report ---
XR chest 1V portable CLINICAL HISTORY: syncope TECHNIQUE: Single frontal radiograph of the chest was obtained. Comparison: Comparison is made to chest radiograph 04/24/2014 FINDINGS: No lines and tubes are seen. Cardiomegaly is noted. Reticular interstitial opacities are seen. No [place] dence of pleural effusion or pneumothorax. IMPRESSION: No acute chest disease. ACT 112: Negative or not required by law. Electronically signed by: Karl Giordano M.D. 01/15/2023 3:18 PM
[2023-01-15 15:24] LABS: Albumin Globulin Ratio 1.4 (0.9-2); Albumin Level 4.3 gm/dl (3.4-5.0); BUN Creatinine Ratio 18.5 (10-20); Bilirubin,Total 0.7 mg/dl (0.2-1.0); Calcium 9.6 mg/dl (8.5-10.1); Creatinine Clr Calc Pharmacy 39.7 ml/min; Est GFR (African American) 44.4 ml/min; Est GFR (Non-African American) 38.3 ml/min; Potassium 4.8 mmol/L (3.5-5.1); Total Protein 7.3 gm/dl (6.0-8.3)
--- NOTE | 2023-01-15 15:26 | XRay Report ---
XR pelvis 1-2V routine HISTORY: 77 years-old Female fall from standing acute pelvic pain status post fall COMPARISON: Left femur radiographs 06/04/2019 TECHNIQUE: AP view of the pelvis FINDINGS: Moderate osteoarthritis of the hips. No acute fracture, dislocation or avascular necrosis identified. Unremarkable soft tissues. IMPRESSION: Moderate osteoarthritis without acute fracture or dislocation identified. ACT 112: Negative or not required by law. The above report was generated using voice recognition software. It may contain grammatical, syntax o r spelling errors. Electronically signed by: Tavo Dockery M.D. 01/15/2023 3:25 PM
[2023-01-15 15:30] LABS: Troponin I High Sensitivity 7.1 pg/ml (0-14)
[2023-01-15] MEDS ORDERED: SODIUM CHLORIDE 0.9% 1000ML 1,000 ML IV ONE (15:44)
--- NOTE | 2023-01-15 16:07 | History & Physical Report ---
Date of Service January 15, 2023 Assessment & Plan (1) SASCHA (acute kidney injury): Plan: Katherine a 77-year-old female who presents with global weakness, and who fell asleep on her kitchen floor and then found she was too weak to get back up for several days. On admission has an SASCHA with mild rhabdo. Weakness Patient reports she feels globally weak, without weakness in any particular area other than her left arm due to pain with a known humeral fracture currently in a sling. She reports she has had poor appetite and had 1 episode of nausea/vomiting on but this is improved. She has a chronic cough which she does not think has changed, but has been slightly congested Leukocytosis of 16, unclear source. Bio fire, UA pending. Patient denies urinary symptoms. Did have nausea/vomiting as noted without current symptoms. Does continue to have some sinus congestion but without shortness of breath or productive cough and chest x-ray is clear CBC trended Hemoglobin normal On exam no focal neurologic deficits, CThead on admission is clear High-sensitivity troponin is normal PT/OT pending Rhabdomyolysis Due to being on the ground for several days too weak to stand, ambulation for more limited by known left humeral fracture CK4 79. Trended. Encourage oral fluids, 1 bag Normosol ordered on admission SASCHA -Baseline creatinine is less than 1.26, admitting creatinine 1.35 Clinically volume depleted Fluids as noted, encourage p.o., trend daily, renally dose medications as needed Hypothyroidism Continue Synthroid Hypertension Patient is low normotensive, antihypertensives held Patient reports significant whitecoat hypertension, suspect she may have overtreatment of her hypertension leading to global weakness and fatigue. Does endorse that she sometimes gets lightheaded when standing Antihypertensives held, resume 1 at the time as needed. Losartan held with SASCHA. Allergies Continue Singulair Bipolar 1 Continue nortriptyline/quetiapine/duloxetine Right lower extremity leg swelling Patient on sure of how long this has been going on, does have some pain in her calf Doppler pending DVT prophylaxis: Heparin twice daily due to SASCHA CODE STATUS: Full code Diet: Regular Disposition: Medical surgical (2) Rhabdomyolysis: (3) Bipolar 1 disorder: (4) GERD without esophagitis: (5) Hypertension: (6) Anxiety: History of Present Illness Primary Care Provider: NO PCP Katherine is a 77-year-old female with a past medical history of hypertension, anxiety, DVT,, hyperlipidemia, hyperglycemia, hypothyroid CThead: No acute hemorrhage, mass effect, or ischemia Pelvic x-ray: Moderate osteoarthritis without acute fracture/dislocation CXR: No acute disease Leukocytosis of 16. Creatinine baseline of approximately 0.81.26, admitting creatinine elevated at 1.35 with estimated creatinine clearance 39. CK is elevated on admission at 479. EKG on admission with normal sinus rhythm, QTc 420, incomplete right bundle branch block. No territorial ST segment changes or T wave inversions Prior humeral fracture GLobal weak [id number] AM was ust so tired stayed on the floor. Had trouble ambulating and also with L arm fracture. +Feverish, +night sweats. NO dysuria +cough for 6 months. No change in last week. Nonproductive. Mild shortness of breath intermittently over last 6 months No chest, no chest pressure Mild R sided leg swelling which she notices when putting her clothes on 1x episode of diarrhea vomiting 4 days ago without recurrence. no brbpr, no melena. Medical History: Reviewed Medications: Reviewed Surgical History: Reviewed Family history: Reviewed Allergies: Reviewed Social History: Code Status: Allergies Allergy/AdvReac Type Severity Reaction Status Date / Time lithium Allergy Unknown syncope Verified 04/14/22 10:51 cheese AdvReac Unknown CONSTIPATIO Verified 04/14/22 10:51 N nut - unspecified AdvReac Unknown CONSTIPATIO Verified 04/14/22 10:51 N milnacipran [From Savella] AdvReac Verified 04/14/22 10:51 Dust Allergy Unknown STUFFY NOSE Uncoded 04/14/22 10:51 Home Medications Medication Instructions Recorded Confirmed Type amlodipine 5 mg tablet (Norvasc) 5 mg PO QPM 06/04/19 01/15/23 History cyanocobalamin (vitamin B-12) 1,000 mcg PO DAILY 06/04/19 01/15/23 History 1,000 mcg tablet (Vitamin B-12) esomeprazole magnesium 40 mg 40 mg PO DAILY 06/04/19 01/15/23 History capsule,delayed release (Nexium) levothyroxine 50 mcg tablet 50 mcg PO DAILY 06/04/19 01/15/23 History montelukast 10 mg tablet 10 mg PO DAILY 06/04/19 01/15/23 History (Singulair) multivitamin 1 tab PO DAILY 06/04/19 01/15/23 History nortriptyline 10 mg capsule 10 mg PO TID 06/04/19 01/15/23 History (Pamelor) losartan 100 mg tablet 100 mg PO DAILY #90 tabs 06/09/19 01/15/23 Rx alendronate 70 mg tablet (Fosamax) 70 mg PO WK 3 months #12 tabs 02/20/20 01/15/23 Rx atorvastatin 20 mg tablet (Lipitor) 20 mg PO QPM #90 tabs 02/20/20 01/15/23 Rx quetiapine 300 mg tablet (Seroquel) 300 mg PO HS #90 tabs 11/24/21 01/15/23 Rx duloxetine 30 mg capsule,delayed 30 mg PO BID #180 caps 02/16/22 01/15/23 Rx release hydrochlorothiazide 12.5 mg tablet 12.5 mg PO DAILY 04/14/22 01/15/23 History potassium chloride 20 mEq 40 meq PO DAILY 04/14/22 01/15/23 History tablet,extended release polyethylene glycol 3350 17 gram 17 g PO DAILY #14 ea 12/12/22 01/15/23 Rx oral powder packet (Miralax) calcium carbonate 500 mg calcium 500 mg PO DAILY 01/15/23 01/15/23 History (1,250 mg) tablet furosemide 40 mg tablet 40 mg PO DAILY 01/15/23 01/15/23 History meclizine 25 mg tablet 25 mg PO TID PRN Dizziness 01/15/23 01/15/23 History oxycodone-acetaminophen 5 mg-325 1 tab PO .EVERY 4-6 HOURS PRN Pain 01/15/23 01/15/23 History mg tablet (Percocet) Past Med/Surg History Medical History Anxiety Bipolar 1 disorder DVT (deep venous thrombosis) Elevated LFTs Fall Fibromyalgia GERD without esophagitis Hyperglycemia Hyperlipidemia Hypertension Hypotension Hypothyroidism (acquired) Insomnia Left knee DJD Osteoarthritis Surgical History S/P wisdom tooth extraction Status post right partial knee replacement Family History Grandmother Breast cancer Mother Myocardial infarction Denies family history of Ovarian cancer Prostate cancer Colorectal cancer Social History Smoking Status: Never smoker Second Hand Exposure: Yes; Hx Alcohol Use: Yes Alcohol type: wine Alcohol Intake Frequency Comment: occasionally Hx Substance Use: No Preferred Language: Georgian Communication Ability: Effective Visual Impairment: No Limitations Hearing Ability: Normal 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 NAD. Cooperative. HEENT: Atraumatic, normocephalic.Vision/hearing intact Pulm: CTAB A&P. -wheezes, -rales, -rhonchi. Symmetrical chest rise. No increased work of breathing. No respiratory distress. Cardiac: RRR, -mrg. Radial pulses intact and symmetrical. Abdominal: Nontender, nondistended, soft. BS present. Extremities: Right upper extremity with 5/5 museum security chief strength, elbow flexion. Left shoulder flexion/elbow flexion limited by pain, patient with known humeral fracture. Predictive Maintenance Specialist strength is intact. Sensation to soft touch is intact in hands and feet bilaterally without asymmetry. Hip flexion is 5/5 while laying in the bed, but patient fatigues easily. Ankle dorsiflexion/plantarflexion 5/5. Right lower extremity is with 2-3 cm leg circumference larger than left. Results & Data Results & Data ([facility]) Vital Signs (Past 12 Hours) Vital Signs Temp Pulse Resp BP Pulse Ox O2 Del Method 01/15/23 13:25 36.8 C 90 16 115/76 98 Room Air PG Care Time/CCT Total # of Minutes Spent Total Time Spent with Patient: Total time spent is greater than 50% in coordination of care (as documented) at patient's floor/unit and/or counseling patient: Coding Level of Care Code 79437 INT INP/OBS CARE MIN Diagnoses SASCHA (acute kidney injury) N17.9 Rhabdomyolysis M62.82 Bipolar 1 disorder F31.9 GERD without esophagitis K21.9 Hypertension I10 Anxiety F41.9
[2023-01-15] MEDS ORDERED: NORMOSOL-R 1,000 ML IV SCH (16:45)
[2023-01-15 17:58] LABS: Adenovirus PCR Not Detected (NotDetected); Bordetella parapertussis PCR Not Detected (NotDetected); Bordetella pertussis PCR Not Detected (NotDetected); Chlamydia pneumoniae PCR Not Detected (NotDetected); Coronavirus 229E PCR Not Detected (NotDetected); Coronavirus CoV-2 (COVID19)PCR Not Detected (NotDetected); Coronavirus HKU1 PCR Not Detected (NotDetected); Coronavirus NL63 PCR Not Detected (NotDetected); Coronavirus OC43PCR Not Detected (NotDetected); Human Metapneumovirus PCR Not Detected (NotDetected); Influenza A PCR Not Detected (NotDetected); Influenza B PCR Not Detected (NotDetected); Mycoplasma pneumoniae PCR Not Detected (NotDetected); Parainfluenza Virus 1 PCR Not Detected (NotDetected); Parainfluenza Virus 2 PCR Not Detected (NotDetected); Parainfluenza Virus 3 PCR Not Detected (NotDetected); Parainfluenza Virus 4 PCR Not Detected (NotDetected); Respiratory Syncytial VirusPCR Not Detected (NotDetected); Rhinovirus/Enterovirus PCR Not Detected (NotDetected)
--- NOTE | 2023-01-15 19:25 | Ultrasound Report ---
US venous doppler LE RT CLINICAL HISTORY: RLE swelling TECHNIQUE: Right lower extremity real-time compression venous ultrasound with Color Doppler imaging. Utilizing real-time ultrasonic imaging multiple real time high-resolution ultrasonic images with comp ression and noncompression maneuvers of the deep venous system in addition to color doppler imaging w ere performed from the common femoral vein through the proximal calf veins. COMPARISON: None available at the time of this dictation. FINDINGS/IMPRESSION: Currently there is normal compressibility of the deep venous system from the common femoral vein thro ugh the proximal calf veins. No superficial venous thrombosis is identified. ACT 112: Negative or not required by law. Electronically signed by: Karl Giordano M.D. 01/15/2023 7:23 PM
[2023-01-15] MEDS ORDERED: POLYETHYLENE (MIRALAX) 17 GM PACK PO PRN (21:06)
[2023-01-15] MEDS: HEPARIN SOD 5,000 UNIT/0.5 ML VIAL SQ SCH (22:17)
[2023-01-15] MEDS: DULoxetine HCL 30 MG CAP PO SCH (22:17)
[2023-01-15] MEDS: NORTRIPTYLINE HCL 10 MG CAP PO SCH (22:17)
[2023-01-15] MEDS: QUEtiapine FUMARATE 300 MG TABLET PO SCH (22:17)
[2023-01-15] MEDS: ACETAMINOPHEN 325 MG TAB PO PRN (22:58)
--- NOTE | 2023-01-16 05:44 | Electrocardiogram Report ---
Test Reason : Blood Pressure : / mmHG Vent. Rate : 091 BPM Atrial Rate : 091 BPM P-R Int : 164 ms QRS Dur : 092 ms QT Int : 342 ms P-R-T Axes : 074 029 059 degrees QTc Int : 420 ms Normal sinus rhythm Possible Left atrial enlargement Incomplete right bundle branch block Borderline ECG When compared with ECG of 08-FEB-2017 14:59, Criteria for Septal infarct are no longer Present Confirmed by Kevin Wolfe ([id number]) on 01/16/2023 5:43:32 AM Referred By: REFERRED SELF Confirmed By:Kevin Wolfe
[2023-01-16] MEDS: LEVOTHYROXINE SODIUM 50 MCG TABLET PO SCH (05:47)
[2023-01-16 06:17] LABS: Basophils # (auto) 0.03 K/uL (0-0.2); Basophils % (auto) 0.3 %; Eosinophils # (auto) 0.31 K/uL (0-0.50); Eosinophils % (auto) 3.3 %; Hematocrit (blood only) 33.6 % (37.0-47.0); Immature Granulocytes # (auto) 0.03 K/uL (0.01-0.20); Immature Granulocytes % (auto) 0.3 %; Lymphocytes # (auto) 2.13 K/uL (1.2-3.4); Lymphocytes % (auto) 22.6 %; Mean Corpuscular Hemoglobin 30.3 pg (25.0-34.0); Mean Corpuscular Hgb Conc 32.7 g/dL (32.0-36.0); Mean Corpuscular Volume 92.6 fL (80.0-100.0); Mean Platelet Volume 12.8 fL (9.4-12.4); Monocytes # (auto) 0.74 K/uL (0.11-0.59); Monocytes % (auto) 7.8 %; Neutrophils # (auto) 6.19 K/uL (1.40-6.50); Neutrophils % (auto) 65.7 %; Platelet Count 208 K/uL (130-400); RDW Coefficient of Variation 13.6 % (11.5-14.5); RDW Standard Deviation 46.4 fL (36.4-46.3); Red Blood Count 3.63 M/uL (4.20-5.40); White Blood Count 9.43 K/ul (4.8-10.8)
[2023-01-16 06:36] LABS: BUN Creatinine Ratio 21.1 (10-20); Calcium 8.7 mg/dl (8.5-10.1); Creatinine Clr Calc Pharmacy 49.5 ml/min; Est GFR (African American) 57.5 ml/min; Est GFR (Non-African American) 49.6 ml/min
--- NOTE | 2023-01-16 08:26 | Hospitalist Progress Note ---
Medical Student Supervision Note: I was personally present during medical student patient encounter and independently interviewed and examined the patient and verified the monsalve history and physical, reviewed labs and image studies, discussed the case with Doris Hough and agree with the findings and care plan. 77 y/o F here with global weakness after having had nausea/diarrhea and poor PO intake. Had a fall later and spent couple of days on floor Continued to feel weak and dizzi on sitting up this am. o/e - AAOx3, comfortable in bed. pleasant. Heart - regular lungs - clear Abd - soft nt/nd No focal weakness. a/p Weakness/fall sec to dehydration - sec to diarrhea/nausea and poor PO intake. IV hydration with some improvement in symptoms. PT/OT - may need rehab. Hypotension - antihypertensives on hold. resume as BP rises. Chasity - resolved with IV hydration. Mild ck elevation - from fall. recheck in normal range. continue other home meds Heparin SQ Date of Service January 16, 2023 Assessment & Plan (1) CHASITY (acute kidney injury): Plan: Katherine a 77-year-old female with a PMH of Bipolar I, HTN, anxiety, HLD, osteoarthritis, and Hx of DVT not on anti-coagulation, who presented with global weakness after 1 day of nausea, diarrhea, poor PO intake with subsequent fall in which she spent 3 days on the floor. Weakness, falls. likely secondary to dehydration Known L humeral fracture currently in a sling, but presented with generalized w eakness. No fractures on admission Pelvic Xray & Chest Xrays - Low-normal BP since admission while holding anti-hypertensives - Considered chronic ambulatory dysfunction, baseline dizziness, infection - On admission exam, no focal neurologic deficits; Negative Head CT - Leukocytosis of 16, unclear source, improved to 9 on hospital day 1. Negative CXR, negative respiratory BioFire - Trend CBC - PT/OT eval - Gentle IV fluids, encourage PO intake CHASITY- resolved after 1 L bolus Normosol - Creatinine 1.35 on admission. Improved to 1.09, ~baseline, on hospital day 1 Mildly elevated CK Due to being on the ground for several days too weak to stand, ambulation for more limited by known left humeral fracture CK 479 improved to 204 hospital day 1 Hypertension Antihypertensives held (see above), will resume 1 at the time as needed. Hold Losartan during this admission due to CHASITY Hypothyroidism Continue Synthroid Allergies Continue Singulair Bipolar 1 Continue nortriptyline/quetiapine/duloxetine Right lower extremity leg swelling Unsure duration, venous duplex u/s negative DVT prophylaxis: SQ Heparin 5,000 Q12 CODE STATUS: Full code Diet: Regular, Normosol 80 ml/hr Disposition: Med/Surg (2) Bipolar 1 disorder: (3) GERD without esophagitis: (4) Hypertension: (5) Anxiety: Admission and Anticipated Discharge Date Admission Date: January 15, 2023 Subjective Ms. Mae is doing okay this morning. She continues to feel a bit lightheaded and sometimes dizzy (explaining that room spins around her). She has some pain in L arm where the fracture is and feels weak everywhere. She has some shortness of breath with exertion. She reports no chest pain, palpitations, abd pain, diarrhea, nausea, vomiting, dysuria, increased frequency/urgency, or numbness, tingling, pins and needles. Review of Systems Review of Systems: see HPI Physical Exam Physical Exam: Gen- WN/WD, sitting comfortably in bed in no acute distress HEENT- NC/AT, PERRL. no pain with palpation to frontal sinuses Pulm- CTA in all lung perez. no wheezing, rales, crackles CV- normal s1 and s2, no m/r/g. no LE edema, good capillary refill. brachial pulses are symmetric and 2+ Abd- soft, non-tender to palpation in all 4 quadrants MSK/Derm- skin is warm and dry. bilateral knee replacement scars seen. no erythema, warmth. bruise on L knee seen and mild swelling Neuro- CNII-XII grossly intact. 4/5 strength b/l in UE; limited due to patient pain/weakness particularly in L arm. 5/5 strength b/l in LE. Reflexes not assessed. Sensation grossly intact b/l in UE and LE. Coordination and gait not assessed. Psych- normal mood and affect. goal-directed thinking, no pressured speech. Results & Data Results & Data ([facility]) Vital Signs (Past 12 Hours) Vital Signs Temp Pulse Resp BP Pulse Ox O2 Del Method 01/16/23 07:21 36.6 C 88 18 130/69 93 Room Air 01/15/23 22:25 155/74 H 01/15/23 20:50 37.1 C 91 H 18 167/75 H 98 Room Air
[2023-01-16] MEDS: PANTOprazole 40 MG TAB PO SCH (08:40)
[2023-01-16] MEDS: DULoxetine HCL 30 MG CAP PO SCH ×2 (08:41→20:58)
[2023-01-16] MEDS: MONTELUKAST SODIUM 10 MG TABLET PO SCH (08:41)
[2023-01-16] MEDS: NORTRIPTYLINE HCL 10 MG CAP PO SCH ×3 (08:41→20:58)
[2023-01-16] MEDS: HEPARIN SOD 5,000 UNIT/0.5 ML VIAL SQ SCH ×2 (08:46→20:58)
[2023-01-16 09:08] LABS: Appearance Urine Clear (Clear); Bilirubin Urine Negative (Negative); Blood Urine Negative (Negative); Color Urine Yellow; Glucose Urine UA Negative (Negative); Ketones Urine 1+ (Negative); Leukocyte Esterase Urine Negative (Negative); Nitrite Urine Negative (Negative); Protein Urine Negative (Negative); Specific Gravity Urine 1.016 (1.000-1.030); Urobilinogen Urine Negative (Negative); pH Urine 5.5 (4.5-7.5)
[2023-01-16] MEDS: ACETAMINOPHEN 325 MG TAB PO PRN ×2 (11:25→18:08)
--- NOTE | 2023-01-16 12:00 | XCELERA ---
[id number]
[2023-01-16] MEDS: NORMOSOL-R 1,000 ML IV SCH ×2 (12:26→23:39)
[2023-01-16] MEDS: LIDOCAINE 5% 1 PATCH TD SCH (19:06)
[2023-01-16] MEDS: QUEtiapine FUMARATE 300 MG TABLET PO SCH (22:29)
[2023-01-17] MEDS: LEVOTHYROXINE SODIUM 50 MCG TABLET PO SCH (06:27)
[2023-01-17 07:46] LABS: Basophils # (auto) 0.04 K/uL (0-0.2); Basophils % (auto) 0.6 %; Eosinophils # (auto) 0.28 K/uL (0-0.50); Eosinophils % (auto) 4.4 %; Hematocrit (blood only) 30.7 % (37.0-47.0); Hemoglobin 10.2 g/dl (12.0-16.0); Immature Granulocytes # (auto) 0.03 K/uL (0.01-0.20); Immature Granulocytes % (auto) 0.5 %; Lymphocytes % (auto) 34.7 %; Mean Corpuscular Hemoglobin 30.5 pg (25.0-34.0); Mean Corpuscular Hgb Conc 33.2 g/dL (32.0-36.0); Mean Corpuscular Volume 91.9 fL (80.0-100.0); Mean Platelet Volume 12.5 fL (9.4-12.4); Monocytes # (auto) 0.59 K/uL (0.11-0.59); Monocytes % (auto) 9.3 %; Neutrophils % (auto) 50.5 %; Platelet Count 210 K/uL (130-400); RDW Coefficient of Variation 13.3 % (11.5-14.5); Red Blood Count 3.34 M/uL (4.20-5.40); White Blood Count 6.34 K/ul (4.8-10.8)
[2023-01-17 08:01] LABS: Creatinine Clr Calc Pharmacy 66.6 ml/min; Est GFR (African American) 82.3 ml/min; Potassium 4.1 mmol/L (3.5-5.1)
[2023-01-17] MEDS: DULoxetine HCL 30 MG CAP PO SCH ×2 (08:30→20:53)
[2023-01-17] MEDS: MONTELUKAST SODIUM 10 MG TABLET PO SCH (08:31)
[2023-01-17] MEDS: PANTOprazole 40 MG TAB PO SCH (08:32)
[2023-01-17] MEDS: NORTRIPTYLINE HCL 10 MG CAP PO SCH ×3 (08:32→20:53)
[2023-01-17] MEDS: HEPARIN SOD 5,000 UNIT/0.5 ML VIAL SQ SCH ×2 (08:34→20:53)
[2023-01-17] MEDS: LIDOCAINE 5% 1 PATCH TD SCH ×2 (10:13→10:21)
[2023-01-17] MEDS: SIMETHICONE 80 MG CHEW PO PRN (12:23)
--- NOTE | 2023-01-17 13:30 | Ultrasound Report ---
ULTRASOUND SOFT TISSUES RIGHT NECK CLINICAL HISTORY: Tender right neck lump. COMPARISON STUDY: CT of the cervical spine dated 12/04/2022. TECHNIQUE: Real-time, grayscale, and color flow sonography of the soft tissues the right neck is perf ormed utilizing a high-frequency linear transducer. Images are reviewed in the transverse and longitu dinal planes. FINDINGS: Soft tissues: No soft tissue mass or lymphadenopathy is seen. Thyroid gland: The right lobe of the thyroid gland is enlarged and heterogeneous in echotexture. A la rge complex solid and cystic nodule measures 5.0 x 2.0 x 3.2 cm. A solid nodule in the lower pole con taining internal cystic foci measures 3.0 x 2.1 x 3.6 cm. A complex cyst in the upper pole measures 2 .3 x 1.7 x 2.5 cm. IMPRESSION: 1. No soft tissue mass or lymphadenopathy is identified. 2. The right lobe of the thyroid gland is enlarged and heterogeneous, containing several large nodule s and cysts. This likely corresponds to the finding of palpable concern. The largest nodule meets cri teria for fine-needle aspiration. ACT 112: Negative or not required by law. Electronically signed by: Robert Ramon M.D. 01/17/2023 1:28 PM
--- NOTE | 2023-01-17 13:46 | Hospitalist Progress Note ---
Date of Service January 17, 2023 Assessment & Plan (1) CHASITY (acute kidney injury): Plan: Katherine a 77-year-old female with a PMH of Bipolar I, HTN, anxiety, HLD, osteoarthritis, and Hx of DVT not on anti-coagulation, who presented with global weakness after 1 day of nausea, diarrhea, poor PO intake with subsequent fall in which she spent 3 days on the floor. Weakness, falls. likely secondary to dehydration Known L humeral fracture currently in a sling, but presented with generalized weakness. No fractures on admission Pelvic Xray & Chest Xrays - Low-normal BP since admission while holding anti-hypertensives - Considered chronic ambulatory dysfunction, baseline dizziness, infection - On admission exam, no focal neurologic deficits; Negative Head CT - Leukocytosis of 16, unclear source, improved to 9 on hospital day 1. Negative CXR, negative respiratory BioFire - Trend CBC - PT/OT eval; (-) orthostatic evaluation, recommending short term rehab post- discharge - Gentle IV fluids, encourage PO intake - Discussion with case management/PT for short-term rehab at [facility]. Waiting for placement. Thyroid nodule - During admission, pt mentioned tender lump on right side of neck and was found on exam - Ultrasound revealed "enlarged and heterogeneous" right thyroid gland containing several large nodules and cysts. "This likely corresponds to the finding of palpable concern. The largest nodule meets criteria for fine-needle aspiration." - TSH ordered CHASITY- resolved after 1 L bolus Normosol - Creatinine 1.35 on admission. Improved to 1.09, ~baseline, on hospital day 1 Mildly elevated CK Due to being on the ground for several days too weak to stand, ambulation for more limited by known left humeral fracture CK 479 improved to 204 hospital day 1 Hypertension Antihypertensives held (see above), will resume 1 at the time as needed. Hold Losartan during this admission due to CHASITY Hypothyroidism Continue Synthroid Allergies Continue Singulair Bipolar 1 Continue nortriptyline/quetiapine/duloxetine Right lower extremity leg swelling Unsure duration, venous duplex u/s negative DVT prophylaxis: SQ Heparin 5,000 Q12 CODE STATUS: Full code Diet: Regular, Normosol 80 ml/hr Disposition: Med/Surg (2) Bipolar 1 disorder: (3) GERD without esophagitis: (4) Hypertension: (5) Anxiety: Admission and Anticipated Discharge Date Admission Date: January 15, 2023 Supervising Physician Co-Signing Physician Notes Medical Student Supervision Note: I was personally present during medical student patient encounter and independently interviewed and examined the patient and verified the monsalve history and physical, reviewed labs and image studies, discussed the case with Doris Hough and agree with the findings and care plan. 77 y/o F here with global weakness after having had nausea/diarrhea and poor PO intake. Had a fall later and spent couple of days on floor Continued to feel weak and dizzi on sitting up this am. o/e - AAOx3, comfortable in bed. pleasant. Heart - regular lungs - clear Abd - soft nt/nd No focal weakness. Left arm in sling a/p Weakness/fall sec to dehydration - sec to diarrhea/nausea and poor PO intake. IV hydration with some improvement in symptoms. PT/OT - may need rehab. Hypotension - antihypertensives were on hold. resume as BP rises. Chasity - resolved with IV hydration. Mild ck elevation - from fall. recheck in normal range. Thyroid nodule - ordered US. will need outpatient nodule biopsy. continue other home meds Heparin SQ Subjective Ms. Mae is doing okay this morning. She continues to feel a bit lightheaded and sometimes dizzy. She has some pain in L arm where the fracture is and feels weak everywhere. She does not report any shortness of breath with exertion. She reports no chest pain, palpitations, diarrhea, nausea, vomiting, dysuria, increased frequency/urgency, or numbness, tingling, pins and needles. She also reports pain in her right arm today and says that she can't move it without having pain Review of Systems Review of Systems: see HPI Physical Exam Physical Exam: Gen- WN/WD, sitting comfortably in bed in no acute distress HEENT- NC/AT, PERRL Pulm- CTA in all lung perez. no wheezing, rales, crackles CV- normal s1 and s2, no m/r/g. no LE edema, good capillary refill. brachial pulses are symmetric and 2+ Abd- soft, non-tender to palpation in all 4 quadrants MSK/Derm- skin is warm and dry. bilateral knee replacement scars seen. no erythema, warmth. Neuro- CN II-XII grossly intact. 4/5 strength b/l in UE; limited due to patient pain/weakness. 4/5 strength b/l in LE. Reflexes not assessed. Sensation grossly intact b/l in UE and LE. Coordination and gait not assessed. Psych- normal mood and affect. goal-directed thinking, no pressured speech. Results & Data Results & Data ([facility]) Vital Signs (Past 12 Hours) Vital Signs Temp Pulse Resp BP Pulse Ox O2 Del Method 01/17/23 07:13 36.8 C 77 20 145/68 H 93 Room Air
[2023-01-17 15:54] LABS: Thyroid Stimulating Hormone 1.971 uIu/ml (0.300-4.500)
[2023-01-17 15:56] LABS: T4 Free Thyroxine 1.28 ng/dl (0.61-1.60)
[2023-01-17] MEDS: FUROSEMIDE 40 MG TAB PO SCH (17:18)
[2023-01-17] MEDS: ACETAMINOPHEN 325 MG TAB PO PRN (19:09)
[2023-01-17] MEDS: QUEtiapine FUMARATE 300 MG TABLET PO SCH (20:53)
[2023-01-18] MEDS: LEVOTHYROXINE SODIUM 50 MCG TABLET PO SCH (05:43)
--- NOTE | 2023-01-18 07:54 | Hospitalist Progress Note ---
Date of Service January 18, 2023 Assessment & Plan (1) CHASITY (acute kidney injury): Plan: Katherine a 77-year-old female with a PMH of Bipolar I, HTN, anxiety, HLD, osteoarthritis, and Hx of DVT not on anti-coagulation, who presented with global weakness after 1 day of nausea, diarrhea, poor PO intake with subsequent fall in which she spent 3 days on the floor. Weakness, falls. likely secondary to dehydration Known L humeral fracture currently in a sling, but presented with generalized weakness. No fractures on admission Pelvic Xray & Chest Xrays - Low-normal BP since admission while holding anti-hypertensives - Considered chronic ambulatory dysfunction, baseline dizziness, infection - On admission exam, no focal neurologic deficits; Negative Head CT - Leukocytosis of 16, unclear source, improved to 9 on hospital day 1. Negative CXR, negative respiratory BioFire - Trend CBC - PT/OT eval; (-) orthostatic evaluation, recommending short term rehab post- discharge - Gentle IV fluids, encourage PO intake - Discussion with case management/PT for short-term rehab at [facility]. Waiting for placement. Thyroid nodule - During admission, pt mentioned tender lump on right side of neck and was found on exam - Ultrasound revealed "enlarged and heterogeneous" right thyroid gland containing several large nodules and cysts. "This likely corresponds to the finding of palpable concern. The largest nodule meets criteria for fine-needle aspiration." - TSH 1.971 - Outpatient referral to ENT for FNA Adhesive Capsulitis, R shoulder - Suspected adhesive capsulitis of right shoulder based on physical exam findings of active/passive ROM pain, and patient's pain to palpation over joint - Continue PT/rehab once at [facility] CHASITY- resolved after 1 L bolus Normosol - Creatinine 1.35 on admission. Improved to 1.09, ~baseline, on hospital day 1 Mildly elevated CK Due to being on the ground for several days too weak to stand, ambulation for more limited by known left humeral fracture CK 479 improved to 204 hospital day 1 Hypertension Antihypertensives held on admission. Held Losartan while creatinine was elevated with CHASITY. - 01/18 Resumed Losartan 100 mg, HCTZ 12.5 mg Hypothyroidism Continue Synthroid Allergies Continue Singulair Bipolar 1 Continue nortriptyline/quetiapine/duloxetine Right lower extremity leg swelling Unsure duration, venous duplex u/s negative DVT prophylaxis: SQ Heparin 5,000 Q12 CODE STATUS: Full code Diet: Regular, Normosol 80 ml/hr Disposition: Med/Surg (2) Bipolar 1 disorder: (3) GERD without esophagitis: (4) Hypertension: (5) Anxiety: Admission and Anticipated Discharge Date Admission Date: January 17, 2023 Supervising Physician Co-Signing Physician Notes Medical Student Supervision Note: I was personally present during medical student patient encounter and independently interviewed and examined the patient and verified the monsalve history and physical, reviewed labs and image studies, discussed the case with Doris Hough and agree with the findings and care plan. 77 y/o F here with global weakness after having had nausea/diarrhea and poor PO intake. Had a fall later and spent couple of days on floor No concerns. Feeling improved and looking forward to discharge. o/e - AAOx3, comfortable in bed. pleasant. Heart - regular lungs - no resp distress Left arm in sling a/p Weakness/fall sec to dehydration - sec to diarrhea/nausea and poor PO intake. IV hydration with some improvement in symptoms. PT/OT - awaiting rehab placement. Hypotension - resolved. will resume antihypertension. Chasity - resolved with IV hydration. Mild ck elevation - resolved. Thyroid nodule - ordered US. will need outpatient nodule biopsy. continue other home meds Heparin SQ Subjective Ms. Mae is doing better this morning. She continues to feel a bit lightheaded, but better than yesterday. She said that walking around has felt better. She has some pain in L arm where the humeral fractures is and she continues to have some pain in her right shoulder/arm. She does not report any shortness of breath with exertion. She reports no chest pain, palpitations, diarrhea, nausea, vomiting, dysuria, increased frequency/urgency, or numbness, tingling, pins and needles. Review of Systems Review of Systems: see HPI Physical Exam Physical Exam: Gen- WN/WD, sitting comfortably in bed in no acute distress HEENT- NC/AT, PERRL Pulm- CTA in all lung perez. no wheezing, rales, crackles CV- normal s1 and s2, systolic crescendo murmur heard most at the pulmonic area. No rubs or gallops. no LE edema, good capillary refill. Abd- soft, non-tender to palpation in all 4 quadrants MSK/Derm- skin is warm and dry. no erythema, warmth Pain to palpation to anterior and posterior capsule over glenohumeral joint. R shoulder passive ROM 60 degrees. R shoulder active ROM 20 degrees. L shoulder ROM limited due to patient pain. Neuro- CN II-XII grossly intact. 5/5 strength b/l in biceps, finger abduction. 4/5 strength b/l in shoulder abduction, triceps. 5/5 strength b/l in LE. Reflexes not assessed. Sensation grossly intact b/l in UE and LE. Coordination and gait not assessed. Psych- normal mood and affect. goal-directed thinking, no pressured speech. Results & Data Results & Data ([facility]) Vital Signs (Past 12 Hours) Vital Signs Temp Pulse Pulse Resp BP BP Pulse Ox 01/18/23 07:40 01/18/23 07:23 36.5 C 79 16 169/85 H 94 01/17/23 20:50 37 C 83 18 154/91 H 96 O2 Del Method 01/18/23 07:40 Room Air 01/18/23 07:23 Room Air 01/17/23 20:50 Room Air
[2023-01-18] MEDS: LIDOCAINE 5% 1 PATCH TD SCH (08:34)
[2023-01-18] MEDS: FUROSEMIDE 40 MG TAB PO SCH (08:35)
[2023-01-18] MEDS: NORTRIPTYLINE HCL 10 MG CAP PO SCH ×3 (08:35→20:54)
[2023-01-18] MEDS: SIMETHICONE 80 MG CHEW PO PRN (08:35)
[2023-01-18] MEDS: DULoxetine HCL 30 MG CAP PO SCH ×2 (08:35→20:54)
[2023-01-18] MEDS: ACETAMINOPHEN 325 MG TAB PO PRN ×2 (08:35→13:08)
[2023-01-18] MEDS: PANTOprazole 40 MG TAB PO SCH (08:35)
[2023-01-18] MEDS: MONTELUKAST SODIUM 10 MG TABLET PO SCH (08:35)
[2023-01-18] MEDS: LOSARTAN POTASSIUM 50 MG TAB PO SCH (08:35)
[2023-01-18] MEDS: HEPARIN SOD 5,000 UNIT/0.5 ML VIAL SQ SCH ×2 (08:36→20:54)
[2023-01-18 09:48] LABS: Basophils # (auto) 0.04 K/uL (0-0.2); Basophils % (auto) 0.7 %; Eosinophils # (auto) 0.26 K/uL (0-0.50); Eosinophils % (auto) 4.7 %; Hematocrit (blood only) 33.8 % (37.0-47.0); Hemoglobin 11.1 g/dl (12.0-16.0); Immature Granulocytes # (auto) 0.02 K/uL (0.01-0.20); Immature Granulocytes % (auto) 0.4 %; Lymphocytes # (auto) 1.85 K/uL (1.2-3.4); Lymphocytes % (auto) 33.6 %; Mean Corpuscular Hemoglobin 30.2 pg (25.0-34.0); Mean Corpuscular Hgb Conc 32.8 g/dL (32.0-36.0); Mean Corpuscular Volume 91.8 fL (80.0-100.0); Mean Platelet Volume 12.4 fL (9.4-12.4); Monocytes # (auto) 0.54 K/uL (0.11-0.59); Monocytes % (auto) 9.8 %; Neutrophils # (auto) 2.79 K/uL (1.40-6.50); Neutrophils % (auto) 50.8 %; Platelet Count 239 K/uL (130-400); RDW Coefficient of Variation 13.2 % (11.5-14.5); RDW Standard Deviation 44.8 fL (36.4-46.3); Red Blood Count 3.68 M/uL (4.20-5.40)
[2023-01-18 10:07] LABS: BUN Creatinine Ratio 15.8 (10-20); Calcium 9.5 mg/dl (8.5-10.1); Est GFR (African American) 88.9 ml/min; Est GFR (Non-African American) 76.7 ml/min; Potassium 4.2 mmol/L (3.5-5.1)
[2023-01-18] MEDS: hydroCHLOROthiazide 25 MG TAB PO SCH (11:34)
[2023-01-18] MEDS ORDERED: BUTALBITAL/ACETAMIN/CAFFEINE TAB PO STA (15:43)
[2023-01-18] MEDS: QUEtiapine FUMARATE 300 MG TABLET PO SCH (20:54)
[2023-01-19] MEDS: LEVOTHYROXINE SODIUM 50 MCG TABLET PO SCH (06:02)
[2023-01-19 07:59] LABS: Hematocrit (blood only) 36.1 % (37.0-47.0); Hemoglobin 11.9 g/dl (12.0-16.0); Mean Corpuscular Hemoglobin 30.1 pg (25.0-34.0); Mean Corpuscular Volume 91.2 fL (80.0-100.0); Platelet Count 265 K/uL (130-400); RDW Coefficient of Variation 13.1 % (11.5-14.5); RDW Standard Deviation 43.9 fL (36.4-46.3); Red Blood Count 3.96 M/uL (4.20-5.40); White Blood Count 7.31 K/ul (4.8-10.8)
[2023-01-19 08:18] LABS: BUN Creatinine Ratio 15.1 (10-20); Calcium 9.6 mg/dl (8.5-10.1); Creatinine Clr Calc Pharmacy 62.7 ml/min; Est GFR (African American) 76.6 ml/min; Est GFR (Non-African American) 66.1 ml/min
--- NOTE | 2023-01-19 08:22 | Discharge Summary ---
Date of Service January 19, 2023 Admission HPI Per Admitting Provider Katherine is a 77-year-old female with a past medical history of hypertension, anxiety, DVT,, hyperlipidemia, hyperglycemia, hypothyroid CThead: No acute hemorrhage, mass effect, or ischemia Pelvic x-ray: Moderate osteoarthritis without acute fracture/dislocation CXR: No acute disease Leukocytosis of 16. Creatinine baseline of approximately 0.81.26, admitting creatinine elevated at 1.35 with estimated creatinine clearance 39. CK is elevated on admission at 479. EKG on admission with normal sinus rhythm, QTc 420, incomplete right bundle branch block. No territorial ST segment changes or T wave inversions Prior humeral fracture GLobal weak [id number] AM was ust so tired stayed on the floor. Had trouble ambulating and also with L arm fracture. +Feverish, +night sweats. NO dysuria +cough for 6 months. No change in last week. Nonproductive. Mild shortness of breath intermittently over last 6 months No chest, no chest pressure Mild R sided leg swelling which she notices when putting her clothes on 1x episode of diarrhea vomiting 4 days ago without recurrence. no brbpr, no melena. Medical History: Reviewed Medications: Reviewed Surgical History: Reviewed Family history: Reviewed Allergies: Reviewed Social History: Code Status: Discharge Data Allergies Allergy/AdvReac Type Severity Reaction Status Date / Time lithium Allergy Unknown syncope Verified 04/14/22 10:51 cheese AdvReac Unknown CONSTIPATIO Verified 04/14/22 10:51 N nut - unspecified AdvReac Unknown CONSTIPATIO Verified 04/14/22 10:51 N milnacipran [From Savella] AdvReac Unknown Verified 01/15/23 21:16 Consultations 01/15/23 16:13 ED Decision to Admit Stat Ordered Studies 01/15/23 14:00 CT head/brain wo con Stat 01/15/23 16:22 US venous doppler LE RT Stat 01/17/23 US soft tissue neck Routine Hospital Course (1) SASCHA (acute kidney injury): Katherine a 77-year-old female with a PMH of Bipolar I, HTN, anxiety, HLD, osteoarthritis, and Hx of DVT not on anti-coagulation, who presented with global weakness after 1 day of nausea, diarrhea, poor PO intake with subsequent fall in which she spent 3 days on the floor. Weakness, falls. likely secondary to dehydration Known L humeral fracture currently in a sling, but presented with generalized weakness. No fractures on admission Pelvic Xray & Chest Xrays - Low-normal BP since admission while holding anti-hypertensives - Considered chronic ambulatory dysfunction, baseline dizziness, infection - On admission exam, no focal neurologic deficits; Negative Head CT - Leukocytosis of 16, unclear source, improved to 9 on hospital day 1. Negative CXR, negative respiratory BioFire - Trend CBC - PT/OT eval; (-) orthostatic evaluation, recommending short term rehab post- discharge - Gentle IV fluids, encourage PO intake - Discussion with case management/PT for short-term rehab at [facility]. Waiting for placement. Thyroid nodule - During admission, pt mentioned tender lump on right side of neck and was found on exam - Ultrasound revealed "enlarged and heterogeneous" right thyroid gland containing several large nodules and cysts. "This likely corresponds to the finding of palpable concern. The largest nodule meets criteria for fine-needle aspiration." - TSH 1.971 - Outpatient referral to ENT for FNA Adhesive Capsulitis, R shoulder - Suspected adhesive capsulitis of right shoulder based on physical exam findings of active/passive ROM pain, and patient's pain to palpation over joint - Continue PT/rehab once at [facility] SASCHA- resolved after 1 L bolus Normosol - Creatinine 1.35 on admission. Improved to 1.09, ~baseline, on hospital day 1 Mildly elevated CK Due to being on the ground for several days too weak to stand, ambulation for more limited by known left humeral fracture CK 479 improved to 204 hospital day 1 Hypertension Antihypertensives held on admission. Held Losartan while creatinine was elevated with SASCHA. - 01/18 Resumed Losartan 100 mg, HCTZ 12.5 mg Hypothyroidism Continue Synthroid Allergies Continue Singulair Bipolar 1 Continue nortriptyline/quetiapine/duloxetine Right lower extremity leg swelling Unsure duration, venous duplex u/s negative DVT prophylaxis: SQ Heparin 5,000 Q12 CODE STATUS: Full code Diet: Regular, Normosol 80 ml/hr Disposition: Med/Surg (2) Bipolar 1 disorder: (3) GERD without esophagitis: (4) Hypertension: (5) Anxiety: Discharge Plan Discharge Items Reason For Visit: GLOBAL WEAKNESS, RHABDO Follow-up/Referrals: PCP,NO [Primary Care Provider] - Medications and DC Order Prescriptions: No Action losartan 100 mg tablet 100 mg PO DAILY Qty: 90 3RF quetiapine [Seroquel] 300 mg tablet 300 mg PO HS Qty: 90 0RF duloxetine 30 mg capsule,delayed release(DR/EC) 30 mg PO BID Qty: 180 0RF potassium chloride 20 mEq tablet extended release 40 meq PO DAILY hydrochlorothiazide 12.5 mg tablet 12.5 mg PO DAILY atorvastatin [Lipitor] 20 mg tablet 20 mg PO QPM Qty: 90 1RF alendronate [Fosamax] 70 mg tablet 70 mg PO WK 90 Days Qty: 12 1RF multivitamin Tablet 1 tab PO DAILY cyanocobalamin (vitamin B-12) [Vitamin B-12] 1,000 mcg Tablet 1,000 mcg PO DAILY amlodipine [Norvasc] 5 mg tablet 5 mg PO QPM levothyroxine 50 mcg tablet 50 mcg PO DAILY nortriptyline [Pamelor] 10 mg capsule 10 mg PO TID esomeprazole magnesium [Nexium] 40 mg capsule,delayed release(DR/EC) 40 mg PO DAILY montelukast [Singulair] 10 mg tablet 10 mg PO DAILY polyethylene glycol 3350 [Miralax] 17 gram Powder In Packet 17 g PO DAILY Qty: 14 0RF oxycodone-acetaminophen [Percocet] 5-325 mg tablet 1 tab PO .EVERY 4-6 HOURS PRN (Reason: Pain) meclizine 25 mg tablet 25 mg PO TID PRN (Reason: Dizziness) furosemide 40 mg tablet 40 mg PO DAILY calcium carbonate [Calcium 500] 500 mg calcium (1,250 mg) Tablet 500 mg PO DAILY Admission Data Admit Date/Time: 01/17/23 14:19 Attending Provider: Promise Oro Admit Provider: Eliseo Rose Primary Care Provider: PCP,NO Other Providers: Eliseo Rose
[2023-01-19] MEDS: DULoxetine HCL 30 MG CAP PO SCH (09:33)
[2023-01-19] MEDS: LIDOCAINE 5% 1 PATCH TD SCH (09:33)
[2023-01-19] MEDS: FUROSEMIDE 40 MG TAB PO SCH (09:33)
[2023-01-19] MEDS: PANTOprazole 40 MG TAB PO SCH (09:33)
[2023-01-19] MEDS: MONTELUKAST SODIUM 10 MG TABLET PO SCH (09:33)
[2023-01-19] MEDS: HEPARIN SOD 5,000 UNIT/0.5 ML VIAL SQ SCH (09:33)
[2023-01-19] MEDS: NORTRIPTYLINE HCL 10 MG CAP PO SCH (09:33)
[2023-01-19] MEDS: LOSARTAN POTASSIUM 50 MG TAB PO SCH (09:33)
[2023-01-19] MEDS: hydroCHLOROthiazide 25 MG TAB PO SCH (09:33)
--- NOTE | 2023-01-19 12:06 | Discharge Summary ---
Date of Service January 19, 2023 Admission HPI Per Admitting Provider Katherine is a 77-year-old female with a past medical history of hypertension, anxiety, DVT,, hyperlipidemia, hyperglycemia, hypothyroid CThead: No acute hemorrhage, mass effect, or ischemia Pelvic x-ray: Moderate osteoarthritis without acute fracture/dislocation CXR: No acute disease Leukocytosis of 16. Creatinine baseline of approximately 0.81.26, admitting creatinine elevated at 1.35 with estimated creatinine clearance 39. CK is elevated on admission at 479. EKG on admission with normal sinus rhythm, QTc 420, incomplete right bundle branch block. No territorial ST segment changes or T wave inversions Prior humeral fracture GLobal weak Rvt-Ecd-Zn-This AM was ust so tired stayed on the floor. Had trouble ambulating and also with L arm fracture. +Feverish, +night sweats. NO dysuria +cough for 6 months. No change in last week. Nonproductive. Mild shortness of breath intermittently over last 6 months No chest, no chest pressure Mild R sided leg swelling which she notices when putting her clothes on 1x episode of diarrhea vomiting 4 days ago without recurrence. no brbpr, no melena. Admission Exam Per Admitting Provider General: A&Ox3. NAD. Cooperative. HEENT: Atraumatic, normocephalic.Vision/hearing intact Pulm: CTAB A&P. -wheezes, -rales, -rhonchi. Symmetrical chest rise. No increased work of breathing. No respiratory distress. Cardiac: RRR, -mrg. Radial pulses intact and symmetrical. Abdominal: Nontender, nondistended, soft. BS present. Extremities: Right upper extremity with 5/5 motor lodge clerk strength, elbow flexion. Left shoulder flexion/elbow flexion limited by pain, patient with known humeral fracture. 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 Sensation to soft touch is intact in hands and feet bilaterally without asymmetry. Hip flexion is 5/5 while laying in the bed, but patient fatigues easily. Ankle dorsiflexion/plantarflexion 5/5. Right lower extremity is with 2-3 cm leg circumference larger than left. Principal Diagnosis generalized weakness, dehydration Discharge Exam General: Grossly A&Ox3. NAD. Cooperative. HEENT: Atraumatic, normocephalic. Pulm: CTAB anteriorly. -wheezes, -rales, -rhonchi. Symmetrical chest rise. No respiratory distress. Cardiac: RRR, -mrg. Puffy lower extremity, no pitting. Abdominal: Nontender, nondistended, soft. Neuro: Sensation to light touch of upper and lower extremities intact Msk: Wearing L shoulder sling. Able to abduct R shoulder almost fully, w/ some hesitation/deliberate caution from patient. Discharge Data Allergies Allergy/AdvReac Type Severity Reaction Status Date / Time lithium Allergy Unknown syncope Verified 04/14/22 10:51 cheese AdvReac Unknown CONSTIPATIO Verified 04/14/22 10:51 N nut - unspecified AdvReac Unknown CONSTIPATIO Verified 04/14/22 10:51 N milnacipran [From Savella] AdvReac Unknown Verified 01/15/23 21:16 Consultations 01/15/23 16:13 ED Decision to Admit Stat Ordered Studies CBC 01/19/23 Range/Units 07:27 WBC 7.31 (4.8-10.8) K/ul RBC 3.96 L (4.20-5.40) M/uL Hgb 11.9 L (12.0-16.0) g/dl Hct 36.1 L (37.0-47.0) % Plt Count 265 (130-400) K/uL Comprehensive Metabolic Panel 01/19/23 Range/Units 07:27 Sodium 138 (136-145) mmol/L Potassium 4.0 (3.5-5.1) mmol/L Chloride 100 (98-107) mmol/L Carbon Dioxide 32 (21-32) mmol/L BUN 13 (6-23) mg/dl Creatinine 0.86 (0.6-1.2) mg/dl Glucose 113 H (70-99(Fasting)) mg/dl Calcium 9.6 (8.5-10.1) mg/dl Intake and Output 01/18/23 01/19/23 01/19/23 22:59 06:59 14:59 Other: Weight 97.1 kg Patient Weight 01/20/23 06:59 Weight 97.1 kg Chest X-Ray 01/15/23 13:57 XR chest 1V portable CLINICAL HISTORY: syncope TECHNIQUE: Single frontal radiograph of the chest was obtained. Comparison: Comparison is made to chest radiograph 04/24/2014 FINDINGS: No lines and tubes are seen. Cardiomegaly is noted. Reticular interstitial opacities are seen. No evidence of pleural effusion or pneumothorax. IMPRESSION: No acute chest disease. ACT 112: Negative or not required by law. Electronically signed by: Karl Giordano M.D. 01/15/2023 3:18 PM Pelvis X-Ray 01/15/23 13:57 XR pelvis 1-2V routine HISTORY: 77 years-old Female fall from standing acute pelvic pain status post fall COMPARISON: Left femur radiographs 06/04/2019 TECHNIQUE: AP view of the pelvis FINDINGS: Moderate osteoarthritis of the hips. No acute fracture, dislocation or avascular necrosis identified. Unremarkable soft tissues. IMPRESSION: Moderate osteoarthritis without acute fracture or dislocation identified. ACT 112: Negative or not required by law. The above report was generated using voice recognition software. It may contain grammatical, syntax or spelling errors. Electronically signed by: Tavo Dockery M.D. 01/15/2023 3:[address] 01/15/23 14:00 CT SCAN OF THE BRAIN WITHOUT IV CONTRAST CLINICAL HISTORY: Fall COMPARISON STUDY: CT of the brain dated 12/04/2022. TECHNIQUE: Unenhanced axial CT scan of the brain is performed from the vertex to the skull base. A dose lowering technique was utilized adhering to the principles of ALARA. CT DOSE: 690.05 mGycm FINDINGS: Brain parenchyma: There is age-related involutional change noting mild subcortical and periventricular microangiopathic disease. There is no hemorrhage, mass effect, or evidence of acute territorial ischemia by CT criteria. A 12 mm calcified extra-axial nodule along the high left parietal convexity is unchanged and typical for a meningioma. There is no associated mass effect. Hdez-white matter differentiation is preserved. No extra-axial fluid collection is seen. Ventricles, sulci, cisterns: Prominent secondary to involutional change. Intracranial vasculature: There is atherosclerotic calcification of the cavernous carotid arteries. Calvarium: The skeletal structures are osteopenic. No depressed calvarial fracture is seen. Sinuses and mastoids: The visualized paranasal sinuses are clear. The mastoid air cells are well pneumatized. Orbits: The bony orbits are grossly intact. There is evidence of bilateral ocular lens surgery. IMPRESSION: There is no hemorrhage, mass effect, or evidence of acute territorial ischemia by CT criteria. ACT 112: Negative or not required by law. Electronically signed by: Robert Ramon M.D. 01/15/2023 2:20 PM Venous Doppler Study 01/15/23 16:22 US venous doppler LE RT CLINICAL HISTORY: RLE swelling TECHNIQUE: Right lower extremity real-time compression venous ultrasound with Color Doppler imaging. Utilizing real-time ultrasonic imaging multiple real time high-resolution ultrasonic images with compression and noncompression maneuvers of the deep venous system in addition to color doppler imaging were performed from the common femoral vein through the proximal calf veins. COMPARISON: None available at the time of this dictation. FINDINGS/IMPRESSION: Currently there is normal compressibility of the deep venous system from the common femoral vein through the proximal calf veins. No superficial venous thrombosis is identified. ACT 112: Negative or not required by law. Electronically signed by: Karl Giordano M.D. 01/15/2023 7:23 PM Soft Tissue Ultrasound 01/17/23 00:00 ULTRASOUND SOFT TISSUES RIGHT NECK CLINICAL HISTORY: Tender right neck lump. COMPARISON STUDY: CT of the cervical spine dated 12/04/2022. TECHNIQUE: Real-time, grayscale, and color flow sonography of the soft tissues the right neck is performed utilizing a high-frequency linear transducer. Images are reviewed in the transverse and longitudinal planes. FINDINGS: Soft tissues: No soft tissue mass or lymphadenopathy is seen. Thyroid gland: The right lobe of the thyroid gland is enlarged and heterogeneous in echotexture. A large complex solid and cystic nodule measures 5.0 x 2.0 x 3.2 cm. A solid nodule in the lower pole containing internal cystic foci measures 3.0 x 2.1 x 3.6 cm. A complex cyst in the upper pole measures 2.3 x 1.7 x 2.5 cm. IMPRESSION: 1. No soft tissue mass or lymphadenopathy is identified. 2. The right lobe of the thyroid gland is enlarged and heterogeneous, containing several large nodules and cysts. This likely corresponds to the finding of palpable concern. The largest nodule meets criteria for fine-needle aspiration. ACT 112: Negative or not required by law. Electronically signed by: Robert Ramon M.D. 01/17/2023 1:28 PM Vent. Rate : 091 BPM Atrial Rate : 091 BPM P-R Int : 164 ms QRS Dur : 092 ms QT Int : 342 ms P-R-T Axes : 074 029 059 degrees QTc Int : 420 ms Normal sinus rhythm Possible Left atrial enlargement Incomplete right bundle branch block Borderline ECG When compared with ECG of 08-FEB-2017 14:59, Criteria for Septal infarct are no longer Present Confirmed by Kevin Wolfe ([id number]) on 01/16/2023 5:43:32 AM Hospital Course (1) SASCHA (acute kidney injury): 77 y/o female with PMHx of Bipolar I, HTN, anxiety, HLD, osteoarthritis, and hx of DVT not on anti-coagulation who presented with global weakness after 1 day of nausea, diarrhea, poor PO intake with subsequent fall in which she spent 3 days on the floor. Weakness/fall sec to dehydration - sec to diarrhea/nausea and poor PO intake. IV hydration with some improvement in symptoms. PT/OT - recommended rehab - discharged to [facility] - POA. Antihypertensives were hold. Resumed on discharge. Sascha - resolved with IV hydration. Mild ck elevation - from fall. resolved with hydration. Thyroid nodule - US done - results below. will need outpatient nodule biopsy. Referral placed to [facility] ENT. R shoulder stiffness - likely adhesive capsulitis. PT/OT at SNF should be able to address this. Left humeral fracture before this admission Known L humeral fracture - stayed in sling, Right lower extremity leg swelling venous duplex u/s negative continued other home meds. -Per US neck: Thyroid gland: The right lobe of the thyroid gland is enlarged and heterogeneous in echotexture. A large complex solid and cystic nodule measures 5.0 x 2.0 x 3.2 cm. A solid nodule in the lower pole containing internal cystic foci measures 3.0 x 2.1 x 3.6 cm. A complex cyst in the upper pole measures 2.3 x 1.7 x 2.5 cm. When compared to neck CT in 2020, the large nodule is unchangedin size but the lower smaller nodule has increased. - TSH wnl at 1.971 Patient was full code this admission. not sending to pharmacy: Percocet, calcium. did not receive during hospitalization and nonurgent. may be resumed by pcp after leaving SNF. (2) Bipolar 1 disorder: (3) GERD without esophagitis: (4) Hypertension: (5) Anxiety: (6) Hypothyroidism (acquired): (7) Hyperlipidemia: (8) Thyroid nodule: Total Time Total Time Spent Total Time Spent (In Minutes): see attending documentation Discharge Plan Discharge Items Patient Disposition: Transfer Intermediate Fac Reason For Visit: GLOBAL WEAKNESS, RHABDO Discharge Diagnosis: fall, dehydration Activity: Per Instructions section Non-emergency contact: Primary Care Provider Call non-emergency contact if: you have any medication questions, your symptoms worsen and you have a fever Follow-up/Referrals: Tej Jimenez D.O. [Outside Practitioners] - (ENT f/u for large thyroid nodules, to consider FNA. Within 1-2 months. [facility] location preferred.) PCP,NO [Primary Care Provider] - Diet: Heart Healthy Addtl Attending Provider Instructions: 77 y/o female with PMHx of Bipolar I, HTN, anxiety, HLD, osteoarthritis, and hx of DVT not on anti-coagulation who presented with global weakness after 1 day of nausea, diarrhea, poor PO intake with subsequent fall in which she spent 3 days on the floor. Weakness, falls. likely secondary to dehydration Known L humeral fracture currently in a sling, but presented with generalized weakness. No fractures on admission Pelvic Xray & Chest Xrays - Low-normal BP since admission while holding anti-hypertensives - Considered chronic ambulatory dysfunction, baseline dizziness, infection - On admission exam, no focal neurologic deficits; Negative Head CT. pelvis xr w/o acute fracture - Leukocytosis of 16, unclear source, improved to 9 on hospital day 1. Negative CXR, negative respiratory [employer] - 01/16/23 echo. EF >70%. hyperdynamic LV. Grade 1 diastolic dysfunction. normal RVSP. - PT/OT eval'd. SNF rehab at [facility] Thyroid nodules, tender -Per US neck: Thyroid gland: The right lobe of the thyroid gland is enlarged and heterogeneous in echotexture. A large complex solid and cystic nodule measures 5.0 x 2.0 x 3.2 cm. A solid nodule in the lower pole containing internal cystic foci measures 3.0 x 2.1 x 3.6 cm. A complex cyst in the upper pole measures 2.3 x 1.7 x 2.5 cm. When compared to neck CT in 2020, the large nodule is unchangedin size but the lower smaller nodule has increased. - TSH wnl at 1.971 - Outpatient ENT f/u. Referral placed to [facility]NT at patient request. R shoulder stiffness - Suspected adhesive capsulitis of right shoulder based on physical exam findings of active/passive ROM pain, and patient's pain to palpation over joint - PT/OT as per above SASCHA- resolved after 1 L bolus Normosol - Admission Cr 1.35->>0.86 Mildly elevated CK to 479, resolved Hypertension Antihypertensives held on admission. Held Losartan while creatinine was elevated with SASCHA. - 01/18 Resumed Losartan 100 mg, HCTZ 12.5 mg Hypothyroidism Continue levothyroxine Allergies Continue Singulair Bipolar 1 Continue nortriptyline/quetiapine/duloxetine Right lower extremity leg swelling Unsure duration, venous duplex u/s negative Patient was full code this admission. not sending to pharmacy: Percocet, calcium. did not receive during hospitalization and nonurgent. may be resumed by pcp after leaving SNF. Pending Studies at Discharge: No Stand-Alone Forms: [facility] [employer] Skilled Items Patient informed of condition?: Yes DNR: No Discharge Level of Care: Skilled Communicable Disease: No Discharge Prognosis: Stable Lines: None Urinary Catheter: No Medications and DC Order Prescriptions: Continued alendronate [Fosamax] 70 mg tablet 70 mg PO WK 90 Days Qty: 12 1RF multivitamin Tablet 1 tab PO DAILY cyanocobalamin (vitamin B-12) [Vitamin B-12] 1,000 mcg Tablet 1,000 mcg PO DAILY oxycodone-acetaminophen [Percocet] 5-325 mg tablet 1 tab PO .EVERY 4-6 HOURS PRN (Reason: Pain) furosemide 40 mg tablet 40 mg PO DAILY 30 Days Qty: 30 0RF atorvastatin [Lipitor] 20 mg tablet 20 mg PO QPM 30 Days Qty: 90 1RF quetiapine [Seroquel] 300 mg tablet 300 mg PO HS 30 Days Qty: 90 0RF polyethylene glycol 3350 [Miralax] 17 gram Powder In Packet 17 g PO DAILY 30 Days Qty: 14 0RF amlodipine [Norvasc] 5 mg tablet 5 mg PO QPM 30 Days Qty: 30 0RF calcium carbonate 500 mg calcium (1,250 mg) Tablet 500 mg PO DAILY 30 Days Qty: 30 0RF meclizine 25 mg tablet 25 mg PO TID PRN (Reason: Dizziness) 30 Days Qty: 30 0RF levothyroxine 50 mcg tablet 50 mcg PO DAILY 50 Days Qty: 50 0RF nortriptyline [Pamelor] 10 mg capsule 10 mg PO TID 30 Days Qty: 90 0RF esomeprazole magnesium [Nexium] 40 mg capsule,delayed release(DR/EC) 40 mg PO DAILY 30 Days Qty: 30 0RF montelukast [Singulair] 10 mg tablet 10 mg PO DAILY 30 Days Qty: 30 0RF losartan 100 mg tablet 100 mg PO DAILY 30 Days Qty: 90 3RF duloxetine 30 mg capsule,delayed release(DR/EC) 30 mg PO BID 30 Days Qty: 180 0RF hydrochlorothiazide 12.5 mg tablet 12.5 mg PO DAILY 30 Days Qty: 30 0RF potassium chloride 20 mEq tablet extended release 40 meq PO DAILY 30 Days Qty: 60 0RF Discharge Orders: Discharge Order (Routine); Ordered 01/19/23 Ordered By: Jose Topete Admission Data Admit Date/Time: 01/17/23 14:19 Attending Provider: Promise Oro Admit Provider: Eliseo Rose Primary Care Provider: PCP,MORTEZA Other Providers: Eliseo Rose Other Interventions: Discharge Summary Assessment (RN) Last Done: 01/19/23 10:22 Supervising Physician Co-Signing Physician Notes Resident Physician Supervision Note: I independently interviewed and examined the patient and verified the monsalve history and physical, reviewed labs and image studies and agree with resident findings and care plan. Resident Activity Tracking Resident Involvement: Resident Care Provided Care Provided: Adult Hospital Medicine
--- NOTE | 2023-01-23 09:26 | Coding Query ---
To promote full compliance with coding requirements relating to patient care, provider participation is requested in all cases of customer resource specialist uncertainty. Please assist us with the question(s) below: Coding Question(s): The diagnosis(es) below was documented in the (customer resource specialist fill out source document ie H&P, progress notes, etc.) then subsequently fell off all further documentation. Please indicate if it is still a possible diagnosis or ruled out. Physician's Response(s): RHABDOMYOLYSIS ( ) Diagnosed and POA ( ) Diagnosed and not POA (x) Ruled out ( ) Other (please specify) Thank you for your assistance, Starr Lehman - Organizational Psychologist [place]
== END 2023-01-19 10:30 | DRG 684 ==
LOC: 3N 13:15 → ED 13:15 → SUATTDRO 16:12 → 3N 20:39